=== PATIENT | female | born 1935 | race Caucasian/White ===

== ENCOUNTER 2017-05-29 21:00 | Inpatient (IN) | payer MEDICARE, BC ==
[2017-05-29 22:42] VITALS: BP 139/66
[2017-05-29] MEDS ORDERED: Triamcinolone Acet 0.025% Cream 15 gm TP PRN (22:42)
[2017-05-29] MEDS ORDERED: Magnesium Hydroxide (MOM) 30 mL UDC PO PRN (22:47)
[2017-05-29] MEDS ORDERED: Maalox 30 mL Cup PO PRN (22:47)
[2017-05-30] MEDS: Multivitamin Tab PO SCH (08:32)
[2017-05-30] MEDS ORDERED: Haloperidol Lactate 5 mg/mL 1mL Vial IM ONE (11:00)
--- NOTE | 2017-05-30 11:53 | History and Physical ---
History of Present Illness - HPI Chief Complaint: psychosis HPI: This is a 82 year old female who is admitted to the [facility] unit for psychosis. Vital Signs: Last Vital Signs Temp 98.4 F 05/30/17 06:33 Pulse 84 05/30/17 06:33 Resp 18 05/30/17 06:33 BP 147/65 05/30/17 06:33 Pulse Ox 96 05/30/17 06:33 Past Medical History Other History: dvt Social History Smoke: No Alcohol: None Drugs: None Lives: Jail - Medications Home Medications: Home Medication Medication Instructions Recorded Type Divalproex ER [Depakote ER] 250 mg PO HS 05/29/17 History Ergocalciferol [Vitamin D] 50,000 iu PO QWEEK 05/29/17 History OLANZapine [ZyPREXA] 2.5 mg PO HS 05/29/17 History Rivaroxaban [Xarelto] 20 mg PO DAILY 05/29/17 History Triamcinolone Acet 0.025% Cre 1 appl TP BID PRN 05/29/17 History [Kenalog 0.025% Cre] - Allergies Allergies/Adverse Reactions: Allergies Allergy/AdvReac Type Severity Reaction Status Date / Time morphine Allergy Verified 05/29/17 22:14 Review of Systems - Review of Systems Constitutional: Report: No Significant Eyes: Report: No Significant ENT: Report: No Significant Respiratory: Report: No Significant Cardiovascular: Report: No Significant Gastrointestinal: Report: No Significant Genitourinary: Report: No Significant Musculoskeletal: Report: No Significant Skin: Report: No Significant Neurological: Report: No Significant Physical Exam - Physical Exam HEENT: Report: Ears Nose Throat within normal limits Neck: Report: Within normal limits Cardiovascular Systems: Report: +s1/s2 noted, Regular, Rate and Rhythm Respiratory: Report: Breath Sounds are within normal limits Abdomen: Report: Non-tender to palpation Back: Report: Inspection of back is within normal limits. Extremities: Report: Non-tender to palpation. Skin: Report: Color of skin is within normal limits Neuro/Psych: Report: Mood affect is within normal limits - Assessment Assessment: psychosis - Plan Plan: continue current orders
--- NOTE | 2017-05-31 02:01 | Psychosocial Evaluation ---
DATE OF SERVICE: 05/30/2017 JUSTIFICATION FOR HOSPITALIZATION: Hallucinating, agitated, paranoid, seems to be responding to internal stimuli, refusing treatment. CHIEF COMPLAINT: Somebody told me to stop the meds. HISTORY OF PRESENT ILLNESS: An 82-year-old female, disoriented, does not know why she is here, hallucinating and talking to doctors not in the room, looking at me and stating that the doctors saw she did not take the medications, yelling, screaming, shrieking. The patient stating that she is not bipolar, that somebody told her to stop taking the medications, "It was me. I told myself to stop." The patient is a very poor historian. PAST PSYCHIATRIC HISTORY: Is unclear, but it seems she does have history of psychosis, possibly dementia. FAMILY HISTORY: Noncontributory. SOCIAL HISTORY: The patient was born in [place], states that she lives in [place] with her . No kids. States that at times she drinks alcohol. MEDICATIONS: Reviewed, but she states that she will refuse the medications, specifically the Zyprexa. MEDICAL HISTORY: Please see full H and P. MENTAL STATUS EXAMINATION: Stated age, screaming on exam, disoriented, very poor eye contact, looking away, talking to someone is really not fair, disorganized, disoriented, actively responding to internal stimuli. No overt SI or HI. Insight and judgment severely diminished. PROVISIONAL DIAGNOSES: Psychosis, unspecified; mood, unspecified, rule out dementia, rule out schizophrenia, rule out schizoaffective disorder, rule out bipolar affective disorder, poor medication and treatment compliance. MEDICAL: Please see full H and P. ESTIMATED LENGTH OF STAY: 5-6 days. ASSESSMENT: The patient requiring inpatient hospitalization. Disoriented, psychotic, yelling, screaming. PLAN: We will initiate medication management, encourage medication compliance. CONDITIONS FOR DISCHARGE: Improved mood, improved affect, cessation of any SI or HI, better control of her psychotic symptoms. [facility]# [id number]
[2017-05-31 08:22] LABS: % EOSINOPHILS 3.6 % (0.0-5.0); % LYMPHOCYTES 19.7 % (20.0-50.0); % MONOCYTES 9.1 % (2.0-10.0); % NEUTROPHILS 67.6 % (40.0-80.0); EOSINOPHILE ABSOLUTE 0.3 Th/cmm (0.1-0.4); LYMPHOCYTE ABSOLUTE 1.5 Th/cmm (1.5-3.0); MEAN CELL VOLUME 95.6 fl (81-100); MEAN CORPUSCULAR HEMOGLOBIN 32.8 pg (27.0-31.0); MEAN CORPUSCULAR HGB CONC 34.3 pg (28.0-36.0); MEAN PLATELET VOLUME 8.8 fl; MONOCYTE ABSOLUTE 0.7 Th/cmm (0.3-1.0); NEUTROPHILE ABSOLUTE 5.3 Th/cmm (1.8-8.0); PLATELET COUNT 163 Th/cmm (150-400); RED BLOOD COUNT 3.98 Mil/cmm (3.80-5.20); RED CELL DISTRIBUTION WIDTH 13.6 % (11.5-20.0); WHITE BLOOD COUNT 7.8 Th/cmm (4.8-10.8)
[2017-05-31 08:41] LABS: ANION GAP 10.2 (7.0-16.0); BUN - UREA NITROGEN 26 mg/dL (7-25); CALCIUM SERUM 9.4 mg/dL (8.6-10.3); CHLORIDE 109 mEq/L (98-107); CREATININE - SERUM 0.7 mg/dL (0.6-1.2); GLUCOSE 86 mg/dL (70-105); POTASSIUM SERUM 4.2 mEq/L (3.5-5.1); SODIUM SERUM 139 mEq/L (136-145)
[2017-05-31] MEDS: Multivitamin Tab PO SCH (09:34)
--- NOTE | 2017-05-31 11:39 | General Progress Note ---
Subjective - Review of Systems Events since last encounter: patent still psychotic in no acute distress Objective - Results Result Diagrams: 05/31/17 07:50 05/31/17 07:50 Recent Labs: Laboratory Last Values WBC 7.8 Th/cmm (4.8-10.8) 05/31/17 07:50 RBC 3.98 Mil/cmm (3.80-5.20) 05/31/17 07:50 Hgb 13.0 gm/dL (12-16) 05/31/17 07:50 Hct 38.0 % (41.0-60) L 05/31/17 07:50 MCV 95.6 fl (81-100) 05/31/17 07:50 MCH 32.8 pg (27.0-31.0) H 05/31/17 07:50 MCHC Differential 34.3 pg (28.0-36.0) 05/31/17 07:50 RDW 13.6 % (11.5-20.0) 05/31/17 07:50 Plt Count 163 Th/cmm (150-400) 05/31/17 07:50 MPV 8.8 fl 05/31/17 07:50 Neutrophils % 67.6 % (40.0-80.0) 05/31/17 07:50 Lymphocytes % 19.7 % (20.0-50.0) L 05/31/17 07:50 Monocytes % 9.1 % (2.0-10.0) 05/31/17 07:50 Eosinophils % 3.6 % (0.0-5.0) 05/31/17 07:50 Basophils % 0.0 % (0.0-2.0) 05/31/17 07:50 Sodium 139 mEq/L (136-145) 05/31/17 07:50 Potassium 4.2 mEq/L (3.5-5.1) 05/31/17 07:50 Chloride 109 mEq/L (98-107) H 05/31/17 07:50 Carbon Dioxide 24.0 mEq/L (21.0-31.0) 05/31/17 07:50 Anion Gap 10.2 (7.0-16.0) 05/31/17 07:50 BUN 26 mg/dL (7-25) H 05/31/17 07:50 Creatinine 0.7 mg/dL (0.6-1.2) 05/31/17 07:50 Est GFR ( Amer) TNP 05/31/17 07:50 Est GFR (Non-Af Amer) TNP 05/31/17 07:50 BUN/Creatinine Ratio 37.1 05/31/17 07:50 Glucose 86 mg/dL (70-105) 05/31/17 07:50 Calcium 9.4 mg/dL (8.6-10.3) 05/31/17 07:50 - Physical Exam Vitals and I&O: Vital Signs Temp 98.9 F 05/31/17 07:11 Pulse 69 05/31/17 07:11 Resp 20 05/31/17 07:11 BP 142/76 05/31/17 07:11 Pulse Ox 97 05/31/17 07:11 Intake & Output 05/30/17 05/31/17 05/31/17 18:59 06:59 18:59 Intake Total 250 Balance 250 Intake: Oral 250 Other: # Voids 3 # Bowel Movements 1 Stool Characteristics Soft Active Medications: Current Medications Acetaminophen (Tylenol) 650 mg PO Q4HR PRN PRN Reason: Mild Pain / Temp above 100 Stop: 07/28/17 22:46 Al Hydrox/Mg Hydrox/Simethicone (Maalox) 30 ml PO Q4HR PRN PRN Reason: GI DISTRESS Stop: 07/28/17 22:46 Divalproex Sodium (Depakote Er) 250 mg PO HS DANYELLE PRN Reason: Protocol Stop: 07/29/17 20:59 Last Admin: 05/30/17 21:21 Dose: 250 mg Ergocalciferol (Vitamin D) 50,000 iu PO QWEEK DANYELLE Stop: 07/29/17 08:59 Last Admin: 05/30/17 08:32 Dose: Not Given Lorazepam (Ativan) 0.5 mg PO Q4HR PRN; Protocol PRN Reason: Anxiety Stop: 06/28/17 22:46 Magnesium Hydroxide (Milk Of Magnesia) 30 ml PO HS PRN PRN Reason: Constipation Miscellaneous (Clinical Monitoring) 1 ea MC PRN PRN PRN Reason: XARELTO Stop: 07/29/17 14:09 Multivitamins/Vitamin C (Theragran) 1 tab PO DAILY DANYELLE Stop: 07/29/17 08:59 Last Admin: 05/31/17 09:34 Dose: 1 tab Olanzapine (Zyprexa) 2.5 mg PO HS DANYELLE PRN Reason: Protocol Stop: 07/29/17 20:59 Last Admin: 05/30/17 21:21 Dose: 2.5 mg Rivaroxaban (Xarelto) 20 mg PO DAILY DANYELLE Stop: 07/29/17 08:59 Last Admin: 05/31/17 09:34 Dose: 20 mg Triamcinolone Acetonide (Kenalog 0.025% Cre) 1 appl TP BID PRN PRN Reason: Rash Stop: 07/28/17 22:41 Zolpidem Tartrate (Ambien) 5 mg PO HS PRN PRN Reason: Insomnia Stop: 07/28/17 22:46
--- NOTE | 2017-05-31 23:55 | Progress Notes ---
DATE: 05/31/2017 SUBJECTIVE: The patient in the hospital, hallucinating, agitated, paranoid, refusing treatment. Apparently, she has been home with , but could not be handled at home. The patient not really interactive with me during the [id number] examination, she does not know why she is here or what is going on, remains disoriented impoverished thought process. She is a poor historian; ongoing psychotic symptoms seem to be present. It is unclear if she has an underlying history of mental illness or schizophrenia. ASSESSMENT: The patient remains symptomatic. History of poor medication compliance. The patient did require emergency medications within the past 24 hours due to agitation and escalation of behaviors. PLAN: We will encourage better med compliance. If she continues to refuse treatment, I may need to file a [place] petition. JOB# [id number]
[2017-06-01] MEDS: Multivitamin Tab PO SCH (11:15)
--- NOTE | 2017-06-01 16:21 | General Progress Note ---
Subjective - Review of Systems Events since last encounter: confused in no distress Objective - Results Result Diagrams: 05/31/17 07:50 05/31/17 07:50 Recent Labs: Laboratory Last Values WBC 7.8 Th/cmm (4.8-10.8) 05/31/17 07:50 RBC 3.98 Mil/cmm (3.80-5.20) 05/31/17 07:50 Hgb 13.0 gm/dL (12-16) 05/31/17 07:50 Hct 38.0 % (41.0-60) L 05/31/17 07:50 MCV 95.6 fl (81-100) 05/31/17 07:50 MCH 32.8 pg (27.0-31.0) H 05/31/17 07:50 MCHC Differential 34.3 pg (28.0-36.0) 05/31/17 07:50 RDW 13.6 % (11.5-20.0) 05/31/17 07:50 Plt Count 163 Th/cmm (150-400) 05/31/17 07:50 MPV 8.8 fl 05/31/17 07:50 Neutrophils % 67.6 % (40.0-80.0) 05/31/17 07:50 Lymphocytes % 19.7 % (20.0-50.0) L 05/31/17 07:50 Monocytes % 9.1 % (2.0-10.0) 05/31/17 07:50 Eosinophils % 3.6 % (0.0-5.0) 05/31/17 07:50 Basophils % 0.0 % (0.0-2.0) 05/31/17 07:50 Sodium 139 mEq/L (136-145) 05/31/17 07:50 Potassium 4.2 mEq/L (3.5-5.1) 05/31/17 07:50 Chloride 109 mEq/L (98-107) H 05/31/17 07:50 Carbon Dioxide 24.0 mEq/L (21.0-31.0) 05/31/17 07:50 Anion Gap 10.2 (7.0-16.0) 05/31/17 07:50 BUN 26 mg/dL (7-25) H 05/31/17 07:50 Creatinine 0.7 mg/dL (0.6-1.2) 05/31/17 07:50 Est GFR ( Amer) TNP 05/31/17 07:50 Est GFR (Non-Af Amer) TNP 05/31/17 07:50 BUN/Creatinine Ratio 37.1 05/31/17 07:50 Glucose 86 mg/dL (70-105) 05/31/17 07:50 Calcium 9.4 mg/dL (8.6-10.3) 05/31/17 07:50 - Physical Exam Vitals and I&O: Vital Signs Temp 97.4 F 06/01/17 07:00 Pulse 73 06/01/17 07:00 Resp 18 06/01/17 07:00 BP 106/75 06/01/17 07:00 Pulse Ox 98 06/01/17 07:00 Intake & Output 05/31/17 06/01/17 06/01/17 18:59 06:59 18:59 Intake Total 1000 120 Balance 1000 120 Intake: Oral 1000 120 Other: # Voids 3 3 Stool Characteristics Soft Active Medications: Current Medications Acetaminophen (Tylenol) 650 mg PO Q4HR PRN PRN Reason: Mild Pain / Temp above 100 Stop: 07/28/17 22:46 Al Hydrox/Mg Hydrox/Simethicone (Maalox) 30 ml PO Q4HR PRN PRN Reason: GI DISTRESS Stop: 07/28/17 22:46 Divalproex Sodium (Depakote Er) 250 mg PO HS DANYELLE PRN Reason: Protocol Stop: 07/29/17 20:59 Last Admin: 05/31/17 21:21 Dose: 250 mg Ergocalciferol (Vitamin D) 50,000 iu PO QWEEK DANYELLE Stop: 07/29/17 08:59 Last Admin: 05/30/17 08:32 Dose: Not Given Lorazepam (Ativan) 0.5 mg PO Q4HR PRN; Protocol PRN Reason: Anxiety Stop: 06/28/17 22:46 Last Admin: 06/01/17 02:15 Dose: 0.5 mg Magnesium Hydroxide (Milk Of Magnesia) 30 ml PO HS PRN PRN Reason: Constipation Miscellaneous (Clinical Monitoring) 1 ea MC PRN PRN PRN Reason: XARELTO Stop: 07/29/17 14:09 Multivitamins/Vitamin C (Theragran) 1 tab PO DAILY DANYELLE Stop: 07/29/17 08:59 Last Admin: 06/01/17 11:15 Dose: 1 tab Olanzapine (Zyprexa) 2.5 mg PO HS DANYELLE PRN Reason: Protocol Stop: 07/29/17 20:59 Last Admin: 05/31/17 21:21 Dose: 2.5 mg Rivaroxaban (Xarelto) 20 mg PO DAILY DANYELLE Stop: 07/29/17 08:59 Last Admin: 06/01/17 11:15 Dose: Not Given Triamcinolone Acetonide (Kenalog 0.025% Cre) 1 appl TP BID PRN PRN Reason: Rash Stop: 07/28/17 22:41 Zolpidem Tartrate (Ambien) 5 mg PO HS PRN PRN Reason: Insomnia Stop: 07/28/17 22:46 Nutritional Asmnt/Malnutr-PDOC - Dietary Evaluation Malnutrition Findings (Please click <Entered> for more info): Nutritional Asmnt/Malnutrition Start: 05/30/17 07: 57 Text: Status: Complete Freq: Document 06/01/17 12:38 [email or web address] (Rec: 06/01/17 12:47 [email or web address]) Nutritional Asmnt/Malnutrition Patient General Information Nutritional Screening Moderate Risk Diagnosis psychosis Pertinent Medical Hx/Surgical Hx psychosis, dementia, no other history available Subjective Information pt confused but eating 100% of meals Current Diet Order/ Nutrition Support regular Patient / S.O Not Indicated Pertinent Medications vit d, MOM, MVI, zyprexa, xarelto Pertinent Labs 05/31 BUN: 26 Nutritional Hx/Data Height 1.63 m Height (Calculated Centimeters) 162.6 Current Weight (lbs) 49.895 kg Weight (Calculated Kilograms) 49.9 Weight (Calculated Grams) 17878.2 [place] Body Weight 120 % [place] Body Weight 92 Body Mass Index (BMI) 18.8 Weight Status Approriate GI Symptoms GI Symptoms None Last BM 06/01 Difficult in: None Food Allergies No Skin Integrity/Comment: intact, +2 BLE edema, dry, redness, and flakiness Current %PO Good (75-100%) Estimated Nutritional Goals BEE in Kcals: Using Current wt Calories/Kcals/Kg 30-35 Kcals Calculated 0962-3115 Protein: Using Current wt Protein g/k-1.2 Protein Calculated 50-60 Fluid: ml 6086-6713 (25-30 mL/kg) Nutritional Problem No current Nutrition Prob Problem n/a Etiology n/a Signs/Symptoms: n/a Malnutrition Alert Is there a minimum of two criteria No selected? Query Text:Check all the applicable criteria. A minimum of two criteria are recommended for diagnosis of either severe or non-severe malnutrition. Malnutrition Related to Morbid Obesity Malnutrition related to morbid obesity No Intervention/Recommendation Comments 1. Continue regular diet as ordered Expected Outcomes/Goals Expected Outcomes/Goals po intake >50% monitor wt, labs, skin, PO intake
--- NOTE | 2017-06-01 21:17 | Progress Notes ---
DATE: 06/01/2017 SUBJECTIVE: The patient is currently in the hospital, hallucinating, refusing treatment, stating she does not have bipolar, stating some other doctor told her she does not need to take her medications. The patient was quite unruly a couple days ago, but she has been calmer. She remains highly isolative, withdrawn, ruminative, fixated on the idea that she does not take any medications. I do have her prescribed Zyprexa. ASSESSMENT: The patient remains symptomatic, isolative, reclusive, and concerns for underlying psychosis. PLAN: We will attempt to reach out to family. Given ongoing symptoms, there are overt safety concerns and I am concerned about compliance issues. [facility]# [id number]
[2017-06-02] MEDS: Multivitamin Tab PO SCH (08:36)
--- NOTE | 2017-06-02 12:48 | Internal Medicine Prog Note ---
Internal Medicine Subjective - Subjective Service Date: 06/02/17 Patient seen and examined:: with staff Patient is:: awake Per staff patient has:: no adverse event Internal Medicine Objective - Results Result Diagrams: 05/31/17 07:50 05/31/17 07:50 Recent Labs: Laboratory Last Values WBC 7.8 Th/cmm (4.8-10.8) 05/31/17 07:50 RBC 3.98 Mil/cmm (3.80-5.20) 05/31/17 07:50 Hgb 13.0 gm/dL (12-16) 05/31/17 07:50 Hct 38.0 % (41.0-60) L 05/31/17 07:50 MCV 95.6 fl (81-100) 05/31/17 07:50 MCH 32.8 pg (27.0-31.0) H 05/31/17 07:50 MCHC Differential 34.3 pg (28.0-36.0) 05/31/17 07:50 RDW 13.6 % (11.5-20.0) 05/31/17 07:50 Plt Count 163 Th/cmm (150-400) 05/31/17 07:50 MPV 8.8 fl 05/31/17 07:50 Neutrophils % 67.6 % (40.0-80.0) 05/31/17 07:50 Lymphocytes % 19.7 % (20.0-50.0) L 05/31/17 07:50 Monocytes % 9.1 % (2.0-10.0) 05/31/17 07:50 Eosinophils % 3.6 % (0.0-5.0) 05/31/17 07:50 Basophils % 0.0 % (0.0-2.0) 05/31/17 07:50 Sodium 139 mEq/L (136-145) 05/31/17 07:50 Potassium 4.2 mEq/L (3.5-5.1) 05/31/17 07:50 Chloride 109 mEq/L (98-107) H 05/31/17 07:50 Carbon Dioxide 24.0 mEq/L (21.0-31.0) 05/31/17 07:50 Anion Gap 10.2 (7.0-16.0) 05/31/17 07:50 BUN 26 mg/dL (7-25) H 05/31/17 07:50 Creatinine 0.7 mg/dL (0.6-1.2) 05/31/17 07:50 Est GFR ( Amer) TNP 05/31/17 07:50 Est GFR (Non-Af Amer) TNP 05/31/17 07:50 BUN/Creatinine Ratio 37.1 05/31/17 07:50 Glucose 86 mg/dL (70-105) 05/31/17 07:50 Calcium 9.4 mg/dL (8.6-10.3) 05/31/17 07:50 - Physical Exam Vitals and I&O: Vital Signs Temp 98 F 06/02/17 06:26 Pulse 71 06/02/17 11:28 Resp 20 06/02/17 11:28 BP 130/74 06/02/17 06:26 Pulse Ox 98 06/02/17 06:26 Intake & Output 06/01/17 06/02/17 06/02/17 18:59 06:59 18:59 Intake Total 120 240 Output Total 1 Balance 119 240 Intake: Oral 120 240 Output: Stool 1 Other: # Voids 3 3 Stool Characteristics Soft Formed Active Medications: Current Medications Acetaminophen (Tylenol) 650 mg PO Q4HR PRN PRN Reason: Mild Pain / Temp above 100 Stop: 07/28/17 22:46 Al Hydrox/Mg Hydrox/Simethicone (Maalox) 30 ml PO Q4HR PRN PRN Reason: GI DISTRESS Stop: 07/28/17 22:46 Divalproex Sodium (Depakote Er) 250 mg PO HS DANYELLE PRN Reason: Protocol Stop: 07/29/17 20:59 Last Admin: 06/01/17 21:40 Dose: 250 mg Ergocalciferol (Vitamin D) 50,000 iu PO QWEEK DANYELLE Stop: 07/29/17 08:59 Last Admin: 05/30/17 08:32 Dose: Not Given Lorazepam (Ativan) 0.5 mg PO Q4HR PRN; Protocol PRN Reason: Anxiety Stop: 06/28/17 22:46 Last Admin: 06/01/17 02:15 Dose: 0.5 mg Magnesium Hydroxide (Milk Of Magnesia) 30 ml PO HS PRN PRN Reason: Constipation Miscellaneous (Clinical Monitoring) 1 ea PRN PRN PRN Reason: XARELTO Stop: 07/29/17 14:09 Multivitamins/Vitamin C (Theragran) 1 tab PO DAILY DANYELLE Stop: 07/29/17 08:59 Last Admin: 06/02/17 08:36 Dose: 1 tab Olanzapine (Zyprexa) 2.5 mg PO HS DANYELLE PRN Reason: Protocol Stop: 07/29/17 20:59 Last Admin: 06/01/17 21:40 Dose: 2.5 mg Rivaroxaban (Xarelto) 20 mg PO DAILY DANYELLE Stop: 07/29/17 08:59 Last Admin: 06/02/17 08:36 Dose: 20 mg Triamcinolone Acetonide (Kenalog 0.025% Cre) 1 appl TP BID PRN PRN Reason: Rash Stop: 07/28/17 22:41 Zolpidem Tartrate (Ambien) 5 mg PO HS PRN PRN Reason: Insomnia Stop: 07/28/17 22:46 General: alert HEENT: NC/AT, PERRLA Neck: Supple Lungs: CTAB Internal Medicine Assmt/Plan - Assessment Assessment: psychosis - Plan Plan: continue current orders Nutritional Asmnt/Malnutr-PDOC - Dietary Evaluation Malnutrition Findings (Please click <Entered> for more info): Nutritional Asmnt/Malnutrition Start: 05/30/17 07: 57 Text: Status: Complete Freq: Document 06/01/17 12:38 [email or web address] (Rec: 06/01/17 12:47 [email or web address]) Nutritional Asmnt/Malnutrition Patient General Information Nutritional Screening Moderate Risk Diagnosis psychosis Pertinent Medical Hx/Surgical Hx psychosis, dementia, no other history available Subjective Information pt confused but eating 100% of meals Current Diet Order/ Nutrition Support regular Patient / S.O Not Indicated Pertinent Medications vit d, MOM, MVI, zyprexa, xarelto Pertinent Labs 05/31 BUN: 26 Nutritional Hx/Data Height 5 ft 4 in Height (Calculated Centimeters) 162.6 Current Weight (lbs) 110 lb Weight (Calculated Kilograms) 49.9 Weight (Calculated Grams) 89140.2 [place] Body Weight 120 % [place] Body Weight 92 Body Mass Index (BMI) 18.8 Weight Status Approriate GI Symptoms GI Symptoms None Last BM 06/01 Difficult in: None Food Allergies No Skin Integrity/Comment: intact, +2 BLE edema, dry, redness, and flakiness Current %PO Good (75-100%) Estimated Nutritional Goals BEE in Kcals: Using Current wt Calories/Kcals/Kg 30-35 Kcals Calculated 3480-7687 Protein: Using Current wt Protein g/k-1.2 Protein Calculated 50-60 Fluid: ml 8421-4221 (25-30 mL/kg) Nutritional Problem No current Nutrition Prob Problem n/a Etiology n/a Signs/Symptoms: n/a Malnutrition Alert Is there a minimum of two criteria No selected? Query Text:Check all the applicable criteria. A minimum of two criteria are recommended for diagnosis of either severe or non-severe malnutrition. Malnutrition Related to Morbid Obesity Malnutrition related to morbid obesity No Intervention/Recommendation Comments 1. Continue regular diet as ordered Expected Outcomes/Goals Expected Outcomes/Goals po intake >50% monitor wt, labs, skin, PO intake
--- NOTE | 2017-06-03 01:20 | Progress Notes ---
DATE: 06/02/2017 SUBJECTIVE: The patient is currently in the hospital, hallucinating, had been refusing treatment, apparently unruly and quite aggressive. Upon admission, she seems calmer, however, remains in a Fiona chair, still impulsive, unpredictable, still claiming somebody told her to stop the medicine, but this morning she is somewhat agreeable to it. She also verbalizes she wants to leave. ASSESSMENT: The patient remains symptomatic, isolative, occlusive, but she seems somewhat calmer. PLAN: We will continue to monitor given ongoing symptoms. She is not safe for discharge. The patient is verbalizing. She will take Zyprexa. JOB# [id number]
[2017-06-03] MEDS: Multivitamin Tab PO SCH (08:49)
[2017-06-03] MEDS ORDERED: Magnesium Hydroxide (MOM) 30 mL UDC PO PRN (22:47)
--- NOTE | 2017-06-04 01:49 | Progress Notes ---
DATE: 06/03/2017 SUBJECTIVE: The patient was seen in her room, lying in the bed. The patient appears to be withdrawn and agitated. Otherwise, the patient appears to be in no acute distress. OBJECTIVE: VITAL SIGNS: Temperature 97.8, heart rate 74, blood pressure 131/61, respiration 18, 96% on room air. HEENT: Head is atraumatic and normocephalic. Eyes: Bilateral conjunctivae are clear. Bilateral pupils are equally round and reactive. NECK: Supple. No JVD. CARDIOVASCULAR: S1 and S2, without murmur. PULMONARY: Clear to auscultation. GASTROINTESTINAL: Soft and nontender without guarding. Positive bowel sounds. MUSCULOSKELETAL: No clubbing. No cyanosis noted. ASSESSMENT: 1. Psychosis. 2. Vitamin D deficiency. 3. Insomnia. 4. Osteoarthritis. PLAN: We will keep the patient inpatient psychiatric unit. We will follow up with psychiatrist to monitor the patient's condition and behavior. Treatment plans were discussed with the patient's nurse. Treatment plans were discussed with Dr. Lindsey. JOB# [id number]
--- NOTE | 2017-06-04 08:39 | Progress Notes ---
DATE: SUBJECTIVE: The patient was seen, chart reviewed, and discussed with staff. The patient continues to be actively psychotic, hallucinating, very paranoid and often quite aggressive. She has, however, been compliant with her medications, is generally redirectable and continues to be very fixated on being discharged. PLAN: The patient continues to be unpredictable and aggressive, so that she will require inpatient care center treatment. We will monitor patient on a daily basis for response and titrate meds as needed. JOB# [id number]
[2017-06-04] MEDS: Multivitamin Tab PO SCH (09:59)
--- NOTE | 2017-06-04 13:39 | Internal Medicine Prog Note ---
Internal Medicine Subjective - Subjective Service Date: 06/04/17 Patient is:: awake Per staff patient has:: no adverse event Internal Medicine Objective - Results Result Diagrams: 05/31/17 07:50 05/31/17 07:50 Recent Labs: Laboratory Last Values WBC 7.8 Th/cmm (4.8-10.8) 05/31/17 07:50 RBC 3.98 Mil/cmm (3.80-5.20) 05/31/17 07:50 Hgb 13.0 gm/dL (12-16) 05/31/17 07:50 Hct 38.0 % (41.0-60) L 05/31/17 07:50 MCV 95.6 fl (81-100) 05/31/17 07:50 MCH 32.8 pg (27.0-31.0) H 05/31/17 07:50 MCHC Differential 34.3 pg (28.0-36.0) 05/31/17 07:50 RDW 13.6 % (11.5-20.0) 05/31/17 07:50 Plt Count 163 Th/cmm (150-400) 05/31/17 07:50 MPV 8.8 fl 05/31/17 07:50 Neutrophils % 67.6 % (40.0-80.0) 05/31/17 07:50 Lymphocytes % 19.7 % (20.0-50.0) L 05/31/17 07:50 Monocytes % 9.1 % (2.0-10.0) 05/31/17 07:50 Eosinophils % 3.6 % (0.0-5.0) 05/31/17 07:50 Basophils % 0.0 % (0.0-2.0) 05/31/17 07:50 Sodium 139 mEq/L (136-145) 05/31/17 07:50 Potassium 4.2 mEq/L (3.5-5.1) 05/31/17 07:50 Chloride 109 mEq/L (98-107) H 05/31/17 07:50 Carbon Dioxide 24.0 mEq/L (21.0-31.0) 05/31/17 07:50 Anion Gap 10.2 (7.0-16.0) 05/31/17 07:50 BUN 26 mg/dL (7-25) H 05/31/17 07:50 Creatinine 0.7 mg/dL (0.6-1.2) 05/31/17 07:50 Est GFR ( Amer) TNP 05/31/17 07:50 Est GFR (Non-Af Amer) TNP 05/31/17 07:50 BUN/Creatinine Ratio 37.1 05/31/17 07:50 Glucose 86 mg/dL (70-105) 05/31/17 07:50 Calcium 9.4 mg/dL (8.6-10.3) 05/31/17 07:50 - Physical Exam Vitals and I&O: Vital Signs Temp 98.2 F 06/03/17 20:48 Pulse 77 06/03/17 20:48 Resp 19 06/03/17 20:48 BP 124/66 06/03/17 20:48 Pulse Ox 97 06/03/17 20:48 Intake & Output 06/03/17 06/04/17 06/04/17 18:59 06:59 18:59 Intake Total 1200 120 Balance 1200 120 Intake: Oral 1200 120 Other: # Voids 3 1 # Bowel Movements 1 Stool Characteristics Soft Formed Active Medications: Current Medications Acetaminophen (Tylenol) 650 mg PO Q4HR PRN PRN Reason: Mild Pain / Temp above 100 Stop: 07/28/17 22:46 Al Hydrox/Mg Hydrox/Simethicone (Maalox) 30 ml PO Q4HR PRN PRN Reason: GI DISTRESS Stop: 07/28/17 22:46 Divalproex Sodium (Depakote Er) 250 mg PO DANYELLE PRN Reason: Protocol Stop: 07/29/17 20:59 Last Admin: 06/03/17 21:30 Dose: 250 mg Ergocalciferol (Vitamin D) 50,000 iu PO QWEEK DANYELLE Stop: 07/29/17 08:59 Last Admin: 05/30/17 08:32 Dose: Not Given Lorazepam (Ativan) 0.5 mg PO Q4HR PRN; Protocol PRN Reason: Anxiety Stop: 06/28/17 22:46 Last Admin: 06/04/17 10:07 Dose: 0.5 mg Magnesium Hydroxide (Milk Of Magnesia) 30 ml PO DAILY PRN PRN Reason: Constipation Miscellaneous (Clinical Monitoring) 1 ea PRN PRN PRN Reason: XARELTO Stop: 07/29/17 14:09 Multivitamins/Vitamin C (Theragran) 1 tab PO DAILY DANYELLE Stop: 07/29/17 08:59 Last Admin: 06/04/17 09:59 Dose: 1 tab Olanzapine (Zyprexa) 2.5 mg PO HS DANYELLE PRN Reason: Protocol Stop: 07/29/17 20:59 Last Admin: 06/03/17 21:29 Dose: 2.5 mg Rivaroxaban (Xarelto) 20 mg PO DAILY DANYELLE Stop: 07/29/17 08:59 Last Admin: 06/04/17 09:59 Dose: 20 mg Triamcinolone Acetonide (Kenalog 0.025% Cre) 1 appl TP BID PRN PRN Reason: Rash Stop: 07/28/17 22:41 Last Admin: 06/03/17 17:28 Dose: 1 appl Zolpidem Tartrate (Ambien) 5 mg PO HS PRN PRN Reason: Insomnia Stop: 07/28/17 22:46 General: alert HEENT: NC/AT, PERRLA Neck: Supple Lungs: CTAB Internal Medicine Assmt/Plan - Assessment Assessment: psychosis - Plan Plan: continue current orders Nutritional Asmnt/Malnutr-PDOC - Dietary Evaluation Malnutrition Findings (Please click <Entered> for more info): Nutritional Asmnt/Malnutrition Start: 05/30/17 07: 57 Text: Status: Complete Freq: Document 06/01/17 12:38 [email or web address] (Rec: 06/01/17 12:47 [email or web address]) Nutritional Asmnt/Malnutrition Patient General Information Nutritional Screening Moderate Risk Diagnosis psychosis Pertinent Medical Hx/Surgical Hx psychosis, dementia, no other history available Subjective Information pt confused but eating 100% of meals Current Diet Order/ Nutrition Support regular Patient / S.O Not Indicated Pertinent Medications vit d, MOM, MVI, zyprexa, xarelto Pertinent Labs 05/31 BUN: 26 Nutritional Hx/Data Height 5 ft 4 in Height (Calculated Centimeters) 162.6 Current Weight (lbs) 110 lb Weight (Calculated Kilograms) 49.9 Weight (Calculated Grams) 47042.2 [place] Body Weight 120 % [place] Body Weight 92 Body Mass Index (BMI) 18.8 Weight Status Approriate GI Symptoms GI Symptoms None Last BM 06/01 Difficult in: None Food Allergies No Skin Integrity/Comment: intact, +2 BLE edema, dry, redness, and flakiness Current %PO Good (75-100%) Estimated Nutritional Goals BEE in Kcals: Using Current wt Calories/Kcals/Kg 30-35 Kcals Calculated 7208-3949 Protein: Using Current wt Protein g/k-1.2 Protein Calculated 50-60 Fluid: ml 3590-3773 (25-30 mL/kg) Nutritional Problem No current Nutrition Prob Problem n/a Etiology n/a Signs/Symptoms: n/a Malnutrition Alert Is there a minimum of two criteria No selected? Query Text:Check all the applicable criteria. A minimum of two criteria are recommended for diagnosis of either severe or non-severe malnutrition. Malnutrition Related to Morbid Obesity Malnutrition related to morbid obesity No Intervention/Recommendation Comments 1. Continue regular diet as ordered Expected Outcomes/Goals Expected Outcomes/Goals po intake >50% monitor wt, labs, skin, PO intake
--- NOTE | 2017-06-04 22:19 | Progress Notes ---
DATE: SUBJECTIVE: The patient was seen, chart reviewed, and discussed with staff. The patient continues to be actively psychotic, responding to internal stimuli. Often very aggressive requiring redirection. She has been compliant with her medications. PLAN: The patient continues to be unpredictable with a history of ____ that she will require inpatient care for at least stabilization and treatment. We will monitor patient on a daily basis for response to medications and titrate as needed. [facility]# [id number]
--- NOTE | 2017-06-05 09:18 | General Progress Note ---
Subjective - Review of Systems Events since last encounter: awake in no acute distress Objective - Results Result Diagrams: 05/31/17 07:50 05/31/17 07:50 Recent Labs: Laboratory Last Values WBC 7.8 Th/cmm (4.8-10.8) 05/31/17 07:50 RBC 3.98 Mil/cmm (3.80-5.20) 05/31/17 07:50 Hgb 13.0 gm/dL (12-16) 05/31/17 07:50 Hct 38.0 % (41.0-60) L 05/31/17 07:50 MCV 95.6 fl (81-100) 05/31/17 07:50 MCH 32.8 pg (27.0-31.0) H 05/31/17 07:50 MCHC Differential 34.3 pg (28.0-36.0) 05/31/17 07:50 RDW 13.6 % (11.5-20.0) 05/31/17 07:50 Plt Count 163 Th/cmm (150-400) 05/31/17 07:50 MPV 8.8 fl 05/31/17 07:50 Neutrophils % 67.6 % (40.0-80.0) 05/31/17 07:50 Lymphocytes % 19.7 % (20.0-50.0) L 05/31/17 07:50 Monocytes % 9.1 % (2.0-10.0) 05/31/17 07:50 Eosinophils % 3.6 % (0.0-5.0) 05/31/17 07:50 Basophils % 0.0 % (0.0-2.0) 05/31/17 07:50 Sodium 139 mEq/L (136-145) 05/31/17 07:50 Potassium 4.2 mEq/L (3.5-5.1) 05/31/17 07:50 Chloride 109 mEq/L (98-107) H 05/31/17 07:50 Carbon Dioxide 24.0 mEq/L (21.0-31.0) 05/31/17 07:50 Anion Gap 10.2 (7.0-16.0) 05/31/17 07:50 BUN 26 mg/dL (7-25) H 05/31/17 07:50 Creatinine 0.7 mg/dL (0.6-1.2) 05/31/17 07:50 Est GFR ( Amer) TNP 05/31/17 07:50 Est GFR (Non-Af Amer) TNP 05/31/17 07:50 BUN/Creatinine Ratio 37.1 05/31/17 07:50 Glucose 86 mg/dL (70-105) 05/31/17 07:50 Calcium 9.4 mg/dL (8.6-10.3) 05/31/17 07:50 - Physical Exam Vitals and I&O: Vital Signs Temp 97.7 F 06/04/17 15:22 Pulse 85 06/04/17 15:22 Resp 20 06/04/17 15:22 BP 146/58 06/04/17 15:22 Pulse Ox 95 06/04/17 15:22 Intake & Output 06/04/17 06/05/17 06/05/17 18:59 06:59 18:59 Intake Total 600 Balance 600 Intake: Oral 600 Other: # Voids 3 # Bowel Movements 1 Stool Characteristics Soft Formed Active Medications: Current Medications Acetaminophen (Tylenol) 650 mg PO Q4HR PRN PRN Reason: Mild Pain / Temp above 100 Stop: 07/28/17 22:46 Al Hydrox/Mg Hydrox/Simethicone (Maalox) 30 ml PO Q4HR PRN PRN Reason: GI DISTRESS Stop: 07/28/17 22:46 Divalproex Sodium (Depakote Er) 250 mg PO HS DANYELLE PRN Reason: Protocol Stop: 07/29/17 20:59 Last Admin: 06/04/17 21:18 Dose: Not Given Ergocalciferol (Vitamin D) 50,000 iu PO QWEEK [facility] Stop: 07/29/17 08:59 Last Admin: 05/30/17 08:32 Dose: Not Given Lorazepam (Ativan) 0.5 mg PO Q4HR PRN; Protocol PRN Reason: Anxiety Stop: 06/28/17 22:46 Last Admin: 06/04/17 15:57 Dose: 0.5 mg Magnesium Hydroxide (Milk Of Magnesia) 30 ml PO DAILY PRN PRN Reason: Constipation Miscellaneous (Clinical Monitoring) 1 ea PRN PRN PRN Reason: XARELTO Stop: 07/29/17 14:09 Multivitamins/Vitamin C (Theragran) 1 tab PO DAILY DANYELLE Stop: 07/29/17 08:59 Last Admin: 06/04/17 09:59 Dose: 1 tab Olanzapine (Zyprexa) 2.5 mg PO HS DANYELLE PRN Reason: Protocol Stop: 07/29/17 20:59 Last Admin: 06/04/17 21:18 Dose: Not Given Rivaroxaban (Xarelto) 20 mg PO DAILY DANEYLLE Stop: 07/29/17 08:59 Last Admin: 06/04/17 09:59 Dose: 20 mg Triamcinolone Acetonide (Kenalog 0.025% Cre) 1 appl TP BID PRN PRN Reason: Rash Stop: 07/28/17 22:41 Last Admin: 06/03/17 17:28 Dose: 1 appl Zolpidem Tartrate (Ambien) 5 mg PO HS PRN PRN Reason: Insomnia Stop: 07/28/17 22:46 Nutritional Asmnt/Malnutr-PDOC - Dietary Evaluation Malnutrition Findings (Please click <Entered> for more info): Nutritional Asmnt/Malnutrition Start: 05/30/17 07: 57 Text: Status: Complete Freq: Document 06/01/17 12:38 [email or web address] (Rec: 06/01/17 12:47 [email or web address]) Nutritional Asmnt/Malnutrition Patient General Information Nutritional Screening Moderate Risk Diagnosis psychosis Pertinent Medical Hx/Surgical Hx psychosis, dementia, no other history available Subjective Information pt confused but eating 100% of meals Current Diet Order/ Nutrition Support regular Patient / S.O Not Indicated Pertinent Medications vit d, MOM, MVI, zyprexa, xarelto Pertinent Labs 05/31 BUN: 26 Nutritional Hx/Data Height 1.63 m Height (Calculated Centimeters) 162.6 Current Weight (lbs) 49.895 kg Weight (Calculated Kilograms) 49.9 Weight (Calculated Grams) 59534.2 [place] Body Weight 120 % [place] Body Weight 92 Body Mass Index (BMI) 18.8 Weight Status Approriate GI Symptoms GI Symptoms None Last BM 06/01 Difficult in: None Food Allergies No Skin Integrity/Comment: intact, +2 BLE edema, dry, redness, and flakiness Current %PO Good (75-100%) Estimated Nutritional Goals BEE in Kcals: Using Current wt Calories/Kcals/Kg 30-35 Kcals Calculated 3450-1324 Protein: Using Current wt Protein g/k-1.2 Protein Calculated 50-60 Fluid: ml 0650-2138 (25-30 mL/kg) Nutritional Problem No current Nutrition Prob Problem n/a Etiology n/a Signs/Symptoms: n/a Malnutrition Alert Is there a minimum of two criteria No selected? Query Text:Check all the applicable criteria. A minimum of two criteria are recommended for diagnosis of either severe or non-severe malnutrition. Malnutrition Related to Morbid Obesity Malnutrition related to morbid obesity No Intervention/Recommendation Comments 1. Continue regular diet as ordered Expected Outcomes/Goals Expected Outcomes/Goals po intake >50% monitor wt, labs, skin, PO intake
[2017-06-05] MEDS: Multivitamin Tab PO SCH (10:16)
--- NOTE | 2017-06-06 04:05 | Progress Notes ---
DATE: 06/05/2017 SUBJECTIVE: The patient in the hospital apparently with bipolar, refusing medications, does not want to take medications. She remains fairly calm, but refuses care. The patient is refusing to speak with me at this time, she told me last week she will take medications, but it has only been intermittently consenting to medications. Remains occlusive, isolative. ASSESSMENT: The patient remains symptomatic, refusing care. Concerns for safety, concerns for ongoing psychotic symptoms. PLAN: We will try to reach out to family today. Given her ongoing symptoms, she is not safe for discharge. [facility]# [id number]
[2017-06-06] MEDS: Multivitamin Tab PO SCH (09:06)
--- NOTE | 2017-06-06 15:20 | General Progress Note ---
Subjective - Review of Systems Events since last encounter: still psychotic in no acute distress Objective - Results Result Diagrams: 05/31/17 07:50 05/31/17 07:50 Recent Labs: Laboratory Last Values WBC 7.8 Th/cmm (4.8-10.8) 05/31/17 07:50 RBC 3.98 Mil/cmm (3.80-5.20) 05/31/17 07:50 Hgb 13.0 gm/dL (12-16) 05/31/17 07:50 Hct 38.0 % (41.0-60) L 05/31/17 07:50 MCV 95.6 fl (81-100) 05/31/17 07:50 MCH 32.8 pg (27.0-31.0) H 05/31/17 07:50 MCHC Differential 34.3 pg (28.0-36.0) 05/31/17 07:50 RDW 13.6 % (11.5-20.0) 05/31/17 07:50 Plt Count 163 Th/cmm (150-400) 05/31/17 07:50 MPV 8.8 fl 05/31/17 07:50 Neutrophils % 67.6 % (40.0-80.0) 05/31/17 07:50 Lymphocytes % 19.7 % (20.0-50.0) L 05/31/17 07:50 Monocytes % 9.1 % (2.0-10.0) 05/31/17 07:50 Eosinophils % 3.6 % (0.0-5.0) 05/31/17 07:50 Basophils % 0.0 % (0.0-2.0) 05/31/17 07:50 Sodium 139 mEq/L (136-145) 05/31/17 07:50 Potassium 4.2 mEq/L (3.5-5.1) 05/31/17 07:50 Chloride 109 mEq/L (98-107) H 05/31/17 07:50 Carbon Dioxide 24.0 mEq/L (21.0-31.0) 05/31/17 07:50 Anion Gap 10.2 (7.0-16.0) 05/31/17 07:50 BUN 26 mg/dL (7-25) H 05/31/17 07:50 Creatinine 0.7 mg/dL (0.6-1.2) 05/31/17 07:50 Est GFR ( Amer) TNP 05/31/17 07:50 Est GFR (Non-Af Amer) TNP 05/31/17 07:50 BUN/Creatinine Ratio 37.1 05/31/17 07:50 Glucose 86 mg/dL (70-105) 05/31/17 07:50 Calcium 9.4 mg/dL (8.6-10.3) 05/31/17 07:50 - Physical Exam Vitals and I&O: Vital Signs Temp 98.2 F 06/05/17 14:00 Pulse 76 06/05/17 14:00 Resp 20 06/05/17 14:00 BP 124/52 06/05/17 14:00 Pulse Ox 95 06/05/17 14:00 Intake & Output 06/05/17 06/06/17 06/06/17 18:59 06:59 18:59 Intake Total 800 Balance 800 Intake: Oral 800 Other: # Voids 3 # Bowel Movements 0 Stool Characteristics Soft Formed Active Medications: Current Medications Acetaminophen (Tylenol) 650 mg PO Q4HR PRN PRN Reason: Mild Pain / Temp above 100 Stop: 07/28/17 22:46 Al Hydrox/Mg Hydrox/Simethicone (Maalox) 30 ml PO Q4HR PRN PRN Reason: GI DISTRESS Stop: 07/28/17 22:46 Divalproex Sodium (Depakote Er) 250 mg PO HS DANYELLE PRN Reason: Protocol Stop: 07/29/17 20:59 Last Admin: 06/05/17 21:21 Dose: Not Given Ergocalciferol (Vitamin D) 50,000 iu PO QTUE DANYELLE Stop: 08/05/17 08:59 Last Admin: 06/06/17 09:06 Dose: 50,000 iu Lorazepam (Ativan) 0.5 mg PO Q4HR PRN; Protocol PRN Reason: Anxiety Stop: 06/28/17 22:46 Last Admin: 06/04/17 15:57 Dose: 0.5 mg Magnesium Hydroxide (Milk Of Magnesia) 30 ml PO DAILY PRN PRN Reason: Constipation Miscellaneous (Clinical Monitoring) 1 ea MC PRN PRN PRN Reason: XARELTO Stop: 07/29/17 14:09 Multivitamins/Vitamin C (Theragran) 1 tab PO DAILY DANYELLE Stop: 07/29/17 08:59 Last Admin: 06/06/17 09:06 Dose: 1 tab Olanzapine (Zyprexa) 2.5 mg PO HS DANYELLE PRN Reason: Protocol Stop: 07/29/17 20:59 Last Admin: 06/05/17 21:21 Dose: Not Given Rivaroxaban (Xarelto) 20 mg PO DAILY DANYELLE Stop: 07/29/17 08:59 Last Admin: 06/06/17 09:06 Dose: 20 mg Triamcinolone Acetonide (Kenalog 0.025% Cre) 1 appl TP BID PRN PRN Reason: Rash Stop: 07/28/17 22:41 Last Admin: 06/03/17 17:28 Dose: 1 appl Zolpidem Tartrate (Ambien) 5 mg PO HS PRN PRN Reason: Insomnia Stop: 07/28/17 22:46 Nutritional Asmnt/Malnutr-PDOC - Dietary Evaluation Malnutrition Findings (Please click <Entered> for more info): Nutritional Asmnt/Malnutrition Start: 05/30/17 07: 57 Text: Status: Complete Freq: Document 06/01/17 12:38 [email or web address] (Rec: 06/01/17 12:47 [email or web address]) Nutritional Asmnt/Malnutrition Patient General Information Nutritional Screening Moderate Risk Diagnosis psychosis Pertinent Medical Hx/Surgical Hx psychosis, dementia, no other history available Subjective Information pt confused but eating 100% of meals Current Diet Order/ Nutrition Support regular Patient / S.O Not Indicated Pertinent Medications vit d, MOM, MVI, zyprexa, xarelto Pertinent Labs 05/31 BUN: 26 Nutritional Hx/Data Height 1.63 m Height (Calculated Centimeters) 162.6 Current Weight (lbs) 49.895 kg Weight (Calculated Kilograms) 49.9 Weight (Calculated Grams) 74409.2 [place] Body Weight 120 % [place] Body Weight 92 Body Mass Index (BMI) 18.8 Weight Status Approriate GI Symptoms GI Symptoms None Last BM 06/01 Difficult in: None Food Allergies No Skin Integrity/Comment: intact, +2 BLE edema, dry, redness, and flakiness Current %PO Good (75-100%) Estimated Nutritional Goals BEE in Kcals: Using Current wt Calories/Kcals/Kg 30-35 Kcals Calculated 1695-8900 Protein: Using Current wt Protein g/k-1.2 Protein Calculated 50-60 Fluid: ml 5094-8832 (25-30 mL/kg) Nutritional Problem No current Nutrition Prob Problem n/a Etiology n/a Signs/Symptoms: n/a Malnutrition Alert Is there a minimum of two criteria No selected? Query Text:Check all the applicable criteria. A minimum of two criteria are recommended for diagnosis of either severe or non-severe malnutrition. Malnutrition Related to Morbid Obesity Malnutrition related to morbid obesity No Intervention/Recommendation Comments 1. Continue regular diet as ordered Expected Outcomes/Goals Expected Outcomes/Goals po intake >50% monitor wt, labs, skin, PO intake
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
[2017-06-07] MEDS: Multivitamin Tab PO SCH (08:39)
--- NOTE | 2017-06-07 12:58 | Progress Notes ---
DATE: 06/07/2017 The patient is currently in the hospital, delusional, stopped her meds, unruly at home. at bedside. The patient on a positive note has been taking her medications. She took her medications today and last night. She seems calmer, more cooperative. Medications were noted. The patient is sleeping well, eating well, calm on exam. ASSESSMENT: The patient seems to be improving, better med compliance, better insight, psychosis dissipating. PLAN: I will continue to monitor and follow up. Improvement noted. [facility]# [id number]
--- NOTE | 2017-06-07 13:54 | Internal Medicine Prog Note ---
Internal Medicine Subjective - Subjective Service Date: 06/07/17 Patient is:: awake Per staff patient has:: no adverse event Internal Medicine Objective - Results Result Diagrams: 05/31/17 07:50 05/31/17 07:50 Recent Labs: Laboratory Last Values WBC 7.8 Th/cmm (4.8-10.8) 05/31/17 07:50 RBC 3.98 Mil/cmm (3.80-5.20) 05/31/17 07:50 Hgb 13.0 gm/dL (12-16) 05/31/17 07:50 Hct 38.0 % (41.0-60) L 05/31/17 07:50 MCV 95.6 fl (81-100) 05/31/17 07:50 MCH 32.8 pg (27.0-31.0) H 05/31/17 07:50 MCHC Differential 34.3 pg (28.0-36.0) 05/31/17 07:50 RDW 13.6 % (11.5-20.0) 05/31/17 07:50 Plt Count 163 Th/cmm (150-400) 05/31/17 07:50 MPV 8.8 fl 05/31/17 07:50 Neutrophils % 67.6 % (40.0-80.0) 05/31/17 07:50 Lymphocytes % 19.7 % (20.0-50.0) L 05/31/17 07:50 Monocytes % 9.1 % (2.0-10.0) 05/31/17 07:50 Eosinophils % 3.6 % (0.0-5.0) 05/31/17 07:50 Basophils % 0.0 % (0.0-2.0) 05/31/17 07:50 Sodium 139 mEq/L (136-145) 05/31/17 07:50 Potassium 4.2 mEq/L (3.5-5.1) 05/31/17 07:50 Chloride 109 mEq/L (98-107) H 05/31/17 07:50 Carbon Dioxide 24.0 mEq/L (21.0-31.0) 05/31/17 07:50 Anion Gap 10.2 (7.0-16.0) 05/31/17 07:50 BUN 26 mg/dL (7-25) H 05/31/17 07:50 Creatinine 0.7 mg/dL (0.6-1.2) 05/31/17 07:50 Est GFR ( Amer) TNP 05/31/17 07:50 Est GFR (Non-Af Amer) TNP 05/31/17 07:50 BUN/Creatinine Ratio 37.1 05/31/17 07:50 Glucose 86 mg/dL (70-105) 05/31/17 07:50 Calcium 9.4 mg/dL (8.6-10.3) 05/31/17 07:50 - Physical Exam Vitals and I&O: Vital Signs Temp 99.5 F 06/07/17 07:28 Pulse 82 06/07/17 11:13 Resp 19 06/07/17 11:13 BP 128/58 06/07/17 07:28 Pulse Ox 96 06/07/17 07:28 Intake & Output 06/06/17 06/07/17 06/07/17 18:59 06:59 18:59 Intake Total 1600 250 60 Balance 1600 250 60 Intake: Oral 1600 250 60 Other: # Voids 4 2 1 # Bowel Movements 0 0 0 Stool Characteristics Soft Formed Active Medications: Current Medications Acetaminophen (Tylenol) 650 mg PO Q4HR PRN PRN Reason: Mild Pain / Temp above 100 Stop: 07/28/17 22:46 Al Hydrox/Mg Hydrox/Simethicone (Maalox) 30 ml PO Q4HR PRN PRN Reason: GI DISTRESS Stop: 07/28/17 22:46 Divalproex Sodium (Depakote Er) 250 mg PO HS DANYELLE PRN Reason: Protocol Stop: 07/29/17 20:59 Last Admin: 06/06/17 20:57 Dose: 250 mg Ergocalciferol (Vitamin D) 50,000 iu PO QTUE DANYELLE Stop: 08/05/17 08:59 Last Admin: 06/06/17 09:06 Dose: 50,000 iu Lorazepam (Ativan) 0.5 mg PO Q4HR PRN; Protocol PRN Reason: Anxiety Stop: 06/28/17 22:46 Last Admin: 06/07/17 08:39 Dose: 0.5 mg Magnesium Hydroxide (Milk Of Magnesia) 30 ml PO DAILY PRN PRN Reason: Constipation Miscellaneous (Clinical Monitoring) 1 ea PRN PRN PRN Reason: XARELTO Stop: 07/29/17 14:09 Multivitamins/Vitamin C (Theragran) 1 tab PO DAILY DANYELLE Stop: 07/29/17 08:59 Last Admin: 06/07/17 08:39 Dose: 1 tab Olanzapine (Zyprexa) 2.5 mg PO HS DANYELLE PRN Reason: Protocol Stop: 07/29/17 20:59 Last Admin: 06/06/17 20:57 Dose: 2.5 mg Rivaroxaban (Xarelto) 20 mg PO DAILY DANYELLE Stop: 08/06/17 13:44 Triamcinolone Acetonide (Kenalog 0.025% Cre) 1 appl TP BID PRN PRN Reason: Rash Stop: 07/28/17 22:41 Last Admin: 06/03/17 17:28 Dose: 1 appl Zolpidem Tartrate (Ambien) 5 mg PO HS PRN PRN Reason: Insomnia Stop: 07/28/17 22:46 General: alert HEENT: NC/AT, PERRLA Neck: Supple Lungs: CTAB Internal Medicine Assmt/Plan - Assessment Assessment: psychosis - Plan Plan: continue current orders Nutritional Asmnt/Malnutr-PDOC - Dietary Evaluation Malnutrition Findings (Please click <Entered> for more info): Nutritional Asmnt/Malnutrition Start: 05/30/17 07: 57 Text: Status: Complete Freq: Document 06/01/17 12:38 [email or web address] (Rec: 06/01/17 12:47 [email or web address]) Nutritional Asmnt/Malnutrition Patient General Information Nutritional Screening Moderate Risk Diagnosis psychosis Pertinent Medical Hx/Surgical Hx psychosis, dementia, no other history available Subjective Information pt confused but eating 100% of meals Current Diet Order/ Nutrition Support regular Patient / S.O Not Indicated Pertinent Medications vit d, MOM, MVI, zyprexa, xarelto Pertinent Labs 05/31 BUN: 26 Nutritional Hx/Data Height 5 ft 4 in Height (Calculated Centimeters) 162.6 Current Weight (lbs) 110 lb Weight (Calculated Kilograms) 49.9 Weight (Calculated Grams) 70560.2 [place] Body Weight 120 % [place] Body Weight 92 Body Mass Index (BMI) 18.8 Weight Status Approriate GI Symptoms GI Symptoms None Last BM 06/01 Difficult in: None Food Allergies No Skin Integrity/Comment: intact, +2 BLE edema, dry, redness, and flakiness Current %PO Good (75-100%) Estimated Nutritional Goals BEE in Kcals: Using Current wt Calories/Kcals/Kg 30-35 Kcals Calculated 3137-0356 Protein: Using Current wt Protein g/k-1.2 Protein Calculated 50-60 Fluid: ml 9722-4105 (25-30 mL/kg) Nutritional Problem No current Nutrition Prob Problem n/a Etiology n/a Signs/Symptoms: n/a Malnutrition Alert Is there a minimum of two criteria No selected? Query Text:Check all the applicable criteria. A minimum of two criteria are recommended for diagnosis of either severe or non-severe malnutrition. Malnutrition Related to Morbid Obesity Malnutrition related to morbid obesity No Intervention/Recommendation Comments 1. Continue regular diet as ordered Expected Outcomes/Goals Expected Outcomes/Goals po intake >50% monitor wt, labs, skin, PO intake
[2017-06-08] MEDS: Multivitamin Tab PO SCH (08:34)
--- NOTE | 2017-06-08 11:29 | General Progress Note ---
Subjective - Review of Systems Events since last encounter: patient doing better in no distress Objective - Results Result Diagrams: 05/31/17 07:50 05/31/17 07:50 Recent Labs: Laboratory Last Values WBC 7.8 Th/cmm (4.8-10.8) 05/31/17 07:50 RBC 3.98 Mil/cmm (3.80-5.20) 05/31/17 07:50 Hgb 13.0 gm/dL (12-16) 05/31/17 07:50 Hct 38.0 % (41.0-60) L 05/31/17 07:50 MCV 95.6 fl (81-100) 05/31/17 07:50 MCH 32.8 pg (27.0-31.0) H 05/31/17 07:50 MCHC Differential 34.3 pg (28.0-36.0) 05/31/17 07:50 RDW 13.6 % (11.5-20.0) 05/31/17 07:50 Plt Count 163 Th/cmm (150-400) 05/31/17 07:50 MPV 8.8 fl 05/31/17 07:50 Neutrophils % 67.6 % (40.0-80.0) 05/31/17 07:50 Lymphocytes % 19.7 % (20.0-50.0) L 05/31/17 07:50 Monocytes % 9.1 % (2.0-10.0) 05/31/17 07:50 Eosinophils % 3.6 % (0.0-5.0) 05/31/17 07:50 Basophils % 0.0 % (0.0-2.0) 05/31/17 07:50 Sodium 139 mEq/L (136-145) 05/31/17 07:50 Potassium 4.2 mEq/L (3.5-5.1) 05/31/17 07:50 Chloride 109 mEq/L (98-107) H 05/31/17 07:50 Carbon Dioxide 24.0 mEq/L (21.0-31.0) 05/31/17 07:50 Anion Gap 10.2 (7.0-16.0) 05/31/17 07:50 BUN 26 mg/dL (7-25) H 05/31/17 07:50 Creatinine 0.7 mg/dL (0.6-1.2) 05/31/17 07:50 Est GFR ( Amer) TNP 05/31/17 07:50 Est GFR (Non-Af Amer) TNP 05/31/17 07:50 BUN/Creatinine Ratio 37.1 05/31/17 07:50 Glucose 86 mg/dL (70-105) 05/31/17 07:50 Calcium 9.4 mg/dL (8.6-10.3) 05/31/17 07:50 - Physical Exam Vitals and I&O: Vital Signs Temp 97.1 F 06/08/17 06:45 Pulse 81 06/08/17 08:00 Resp 18 06/08/17 08:00 BP 128/61 06/08/17 06:45 Pulse Ox 95 06/08/17 06:45 Intake & Output 06/07/17 06/08/17 06/08/17 18:59 06:59 18:59 Intake Total 660 120 Balance 660 120 Intake: Oral 660 120 Other: # Voids 3 3 # Bowel Movements 0 Active Medications: Current Medications Acetaminophen (Tylenol) 650 mg PO Q4HR PRN PRN Reason: Mild Pain / Temp above 100 Stop: 07/28/17 22:46 Al Hydrox/Mg Hydrox/Simethicone (Maalox) 30 ml PO Q4HR PRN PRN Reason: GI DISTRESS Stop: 07/28/17 22:46 Divalproex Sodium (Depakote Er) 250 mg PO HS DANYELLE PRN Reason: Protocol Stop: 07/29/17 20:59 Last Admin: 06/07/17 20:31 Dose: 250 mg Ergocalciferol (Vitamin D) 50,000 iu PO QTUE DANYELLE Stop: 08/05/17 08:59 Last Admin: 06/06/17 09:06 Dose: 50,000 iu Lorazepam (Ativan) 0.5 mg PO Q4HR PRN; Protocol PRN Reason: Anxiety Stop: 06/28/17 22:46 Last Admin: 06/07/17 08:39 Dose: 0.5 mg Magnesium Hydroxide (Milk Of Magnesia) 30 ml PO DAILY PRN PRN Reason: Constipation Miscellaneous (Clinical Monitoring) 1 ea PRN PRN PRN Reason: XARELTO Stop: 07/29/17 14:09 Multivitamins/Vitamin C (Theragran) 1 tab PO DAILY DANYELLE Stop: 07/29/17 08:59 Last Admin: 06/08/17 08:34 Dose: 1 tab Olanzapine (Zyprexa) 2.5 mg PO HS DANYELLE PRN Reason: Protocol Stop: 07/29/17 20:59 Last Admin: 06/07/17 20:31 Dose: 2.5 mg Rivaroxaban (Xarelto) 20 mg PO DAILY DANYELLE Stop: 08/06/17 13:44 Last Admin: 06/08/17 08:34 Dose: 20 mg Triamcinolone Acetonide (Kenalog 0.025% Cre) 1 appl TP BID PRN PRN Reason: Rash Stop: 07/28/17 22:41 Last Admin: 06/03/17 17:28 Dose: 1 appl Zolpidem Tartrate (Ambien) 5 mg PO HS PRN PRN Reason: Insomnia Stop: 07/28/17 22:46 Last Admin: 06/07/17 20:32 Dose: 5 mg Nutritional Asmnt/Malnutr-PDOC - Dietary Evaluation Malnutrition Findings (Please click <Entered> for more info): Nutritional Asmnt/Malnutrition Start: 05/30/17 07: 57 Text: Status: Complete Freq: Document 06/01/17 12:38 [email or web address] (Rec: 06/01/17 12:47 [email or web address]) Nutritional Asmnt/Malnutrition Patient General Information Nutritional Screening Moderate Risk Diagnosis psychosis Pertinent Medical Hx/Surgical Hx psychosis, dementia, no other history available Subjective Information pt confused but eating 100% of meals Current Diet Order/ Nutrition Support regular Patient / S.O Not Indicated Pertinent Medications vit d, MOM, MVI, zyprexa, xarelto Pertinent Labs 05/31 BUN: 26 Nutritional Hx/Data Height 1.63 m Height (Calculated Centimeters) 162.6 Current Weight (lbs) 49.895 kg Weight (Calculated Kilograms) 49.9 Weight (Calculated Grams) 02197.2 [place] Body Weight 120 % [place] Body Weight 92 Body Mass Index (BMI) 18.8 Weight Status Approriate GI Symptoms GI Symptoms None Last BM 06/01 Difficult in: None Food Allergies No Skin Integrity/Comment: intact, +2 BLE edema, dry, redness, and flakiness Current %PO Good (75-100%) Estimated Nutritional Goals BEE in Kcals: Using Current wt Calories/Kcals/Kg 30-35 Kcals Calculated 8724-1203 Protein: Using Current wt Protein g/k-1.2 Protein Calculated 50-60 Fluid: ml 0910-7346 (25-30 mL/kg) Nutritional Problem No current Nutrition Prob Problem n/a Etiology n/a Signs/Symptoms: n/a Malnutrition Alert Is there a minimum of two criteria No selected? Query Text:Check all the applicable criteria. A minimum of two criteria are recommended for diagnosis of either severe or non-severe malnutrition. Malnutrition Related to Morbid Obesity Malnutrition related to morbid obesity No Intervention/Recommendation Comments 1. Continue regular diet as ordered Expected Outcomes/Goals Expected Outcomes/Goals po intake >50% monitor wt, labs, skin, PO intake
--- NOTE | 2017-06-08 22:40 | Progress Notes ---
DATE: 06/08/2017 The patient seems calmer, taking her medications. [facility] hearing canceled because she has been consistently taking her meds. No side effects. No EPS. No over sedation. Less delusional. came yesterday, noting that she was calmer. ASSESSMENT: The patient is improving, better med compliance, no longer is delusional, psychosis dissipating. PLAN: We will continue to monitor. We are trying to find a safe place for the patient to discharge to. Recommending a care home for rehab. JOB# [id number]
[2017-06-09] MEDS: Multivitamin Tab PO SCH (08:02)
--- NOTE | 2017-06-09 08:12 | Progress Notes ---
DATE: 06/09/2017 The patient seems to be improving, calmer, more cooperative. She is taking her medications. Delusions dissipating. Sleeping well. Eating well. Getting along well with staff and peers. Some psychosis noted. Still at times believes that her doctor told her to stop taking her medications, which is part of her delusions, but she is taking medications. Riese hearing was canceled. The patient remains reclusive and isolative but significantly calmer. No medication side effects noted, no EPS for example. ASSESSMENT: The patient is improving, still with some delusions present. PLAN: We will monitor and follow up. We are trying to help with placement. At this time, we have no confirmed safe discharge plan. JOB# [id number]
--- NOTE | 2017-06-09 13:09 | Internal Medicine Prog Note ---
Internal Medicine Subjective - Subjective Service Date: 06/09/17 Patient is:: awake Per staff patient has:: no adverse event Internal Medicine Objective - Results Result Diagrams: 05/31/17 07:50 05/31/17 07:50 Recent Labs: Laboratory Last Values WBC 7.8 Th/cmm (4.8-10.8) 05/31/17 07:50 RBC 3.98 Mil/cmm (3.80-5.20) 05/31/17 07:50 Hgb 13.0 gm/dL (12-16) 05/31/17 07:50 Hct 38.0 % (41.0-60) L 05/31/17 07:50 MCV 95.6 fl (81-100) 05/31/17 07:50 MCH 32.8 pg (27.0-31.0) H 05/31/17 07:50 MCHC Differential 34.3 pg (28.0-36.0) 05/31/17 07:50 RDW 13.6 % (11.5-20.0) 05/31/17 07:50 Plt Count 163 Th/cmm (150-400) 05/31/17 07:50 MPV 8.8 fl 05/31/17 07:50 Neutrophils % 67.6 % (40.0-80.0) 05/31/17 07:50 Lymphocytes % 19.7 % (20.0-50.0) L 05/31/17 07:50 Monocytes % 9.1 % (2.0-10.0) 05/31/17 07:50 Eosinophils % 3.6 % (0.0-5.0) 05/31/17 07:50 Basophils % 0.0 % (0.0-2.0) 05/31/17 07:50 Sodium 139 mEq/L (136-145) 05/31/17 07:50 Potassium 4.2 mEq/L (3.5-5.1) 05/31/17 07:50 Chloride 109 mEq/L (98-107) H 05/31/17 07:50 Carbon Dioxide 24.0 mEq/L (21.0-31.0) 05/31/17 07:50 Anion Gap 10.2 (7.0-16.0) 05/31/17 07:50 BUN 26 mg/dL (7-25) H 05/31/17 07:50 Creatinine 0.7 mg/dL (0.6-1.2) 05/31/17 07:50 Est GFR ( Amer) TNP 05/31/17 07:50 Est GFR (Non-Af Amer) TNP 05/31/17 07:50 BUN/Creatinine Ratio 37.1 05/31/17 07:50 Glucose 86 mg/dL (70-105) 05/31/17 07:50 Calcium 9.4 mg/dL (8.6-10.3) 05/31/17 07:50 - Physical Exam Vitals and I&O: Vital Signs Temp 97.7 F 06/08/17 20:00 Pulse 85 06/08/17 20:00 Resp 18 06/08/17 20:00 BP 135/69 06/08/17 20:00 Pulse Ox 97 06/08/17 20:00 Intake & Output 06/08/17 06/09/17 06/09/17 18:59 06:59 18:59 Intake Total 600 500 Balance 600 500 Intake: Oral 600 500 Other: # Voids 3 2 # Bowel Movements 0 Active Medications: Current Medications Acetaminophen (Tylenol) 650 mg PO Q4HR PRN PRN Reason: Mild Pain / Temp above 100 Stop: 07/28/17 22:46 Al Hydrox/Mg Hydrox/Simethicone (Maalox) 30 ml PO Q4HR PRN PRN Reason: GI DISTRESS Stop: 07/28/17 22:46 Divalproex Sodium (Depakote Er) 250 mg PO HS DANYELLE PRN Reason: Protocol Stop: 07/29/17 20:59 Last Admin: 06/08/17 20:48 Dose: 250 mg Ergocalciferol (Vitamin D) 50,000 iu PO QTUE DANYELLE Stop: 08/05/17 08:59 Last Admin: 06/06/17 09:06 Dose: 50,000 iu Lorazepam (Ativan) 0.5 mg PO Q4HR PRN; Protocol PRN Reason: Anxiety Stop: 06/28/17 22:46 Last Admin: 06/09/17 08:02 Dose: 0.5 mg Magnesium Hydroxide (Milk Of Magnesia) 30 ml PO DAILY PRN PRN Reason: Constipation Miscellaneous (Clinical Monitoring) 1 ea MC PRN PRN PRN Reason: XARELTO Stop: 07/29/17 14:09 Multivitamins/Vitamin C (Theragran) 1 tab PO DAILY DANYELLE Stop: 07/29/17 08:59 Last Admin: 06/09/17 08:02 Dose: 1 tab Olanzapine (Zyprexa) 2.5 mg PO HS DANYELLE PRN Reason: Protocol Stop: 07/29/17 20:59 Last Admin: 06/08/17 21:00 Dose: 2.5 mg Rivaroxaban (Xarelto) 20 mg PO DAILY DANYELLE Stop: 08/06/17 13:44 Last Admin: 06/09/17 08:02 Dose: 20 mg Triamcinolone Acetonide (Kenalog 0.025% Cre) 1 appl TP BID PRN PRN Reason: Rash Stop: 07/28/17 22:41 Last Admin: 06/03/17 17:28 Dose: 1 appl Zolpidem Tartrate (Ambien) 5 mg PO HS PRN PRN Reason: Insomnia Stop: 07/28/17 22:46 Last Admin: 06/08/17 20:48 Dose: 5 mg General: alert HEENT: NC/AT, PERRLA Neck: Supple Lungs: CTAB Internal Medicine Assmt/Plan - Assessment Assessment: psychosis - Plan Plan: continue current orders Nutritional Asmnt/Malnutr-PDOC - Dietary Evaluation Malnutrition Findings (Please click <Entered> for more info): Nutritional Asmnt/Malnutrition Start: 05/30/17 07: 57 Text: Status: Complete Freq: Document 06/01/17 12:38 [email or web address] (Rec: 06/01/17 12:47 [email or web address]) Nutritional Asmnt/Malnutrition Patient General Information Nutritional Screening Moderate Risk Diagnosis psychosis Pertinent Medical Hx/Surgical Hx psychosis, dementia, no other history available Subjective Information pt confused but eating 100% of meals Current Diet Order/ Nutrition Support regular Patient / S.O Not Indicated Pertinent Medications vit d, MOM, MVI, zyprexa, xarelto Pertinent Labs 05/31 BUN: 26 Nutritional Hx/Data Height 5 ft 4 in Height (Calculated Centimeters) 162.6 Current Weight (lbs) 110 lb Weight (Calculated Kilograms) 49.9 Weight (Calculated Grams) 23598.2 [place] Body Weight 120 % [place] Body Weight 92 Body Mass Index (BMI) 18.8 Weight Status Approriate GI Symptoms GI Symptoms None Last BM 15 Difficult in: None Food Allergies No Skin Integrity/Comment: intact, +2 BLE edema, dry, redness, and flakiness Current %PO Good (75-100%) Estimated Nutritional Goals BEE in Kcals: Using Current wt Calories/Kcals/Kg 30-35 Kcals Calculated 4900-1069 Protein: Using Current wt Protein g/k-1.2 Protein Calculated 50-60 Fluid: ml 3516-2319 (25-30 mL/kg) Nutritional Problem No current Nutrition Prob Problem n/a Etiology n/a Signs/Symptoms: n/a Malnutrition Alert Is there a minimum of two criteria No selected? Query Text:Check all the applicable criteria. A minimum of two criteria are recommended for diagnosis of either severe or non-severe malnutrition. Malnutrition Related to Morbid Obesity Malnutrition related to morbid obesity No Intervention/Recommendation Comments 1. Continue regular diet as ordered Expected Outcomes/Goals Expected Outcomes/Goals po intake >50% monitor wt, labs, skin, PO intake
[2017-06-10] MEDS: Multivitamin Tab PO SCH (08:28)
--- NOTE | 2017-06-10 18:33 | Progress Notes ---
DATE: 06/10/2017 SUBJECTIVE: The patient was seen in her room, lying in the bed. The patient appears to be agitated and delusional, otherwise appears to be in no acute distress. OBJECTIVE: VITAL SIGNS: Temperature 97.6, heart rate 74, blood pressure 102/52, respirations 18, 97% on room air. HEENT: Head is atraumatic and normocephalic. Eyes: Bilateral conjunctivae are clear. Bilateral pupils are equally round and reactive. NECK: Supple. No JVD. CARDIOVASCULAR: S1 and S2 without murmur. PULMONARY: Clear to auscultation. GASTROINTESTINAL: Soft and nontender without guarding. Positive bowel sounds. MUSCULOSKELETAL: No clubbing. No cyanosis noted. ASSESSMENT: 1. Psychosis. 2. Insomnia. 3. Osteoarthritis. 4. Vitamin D deficiency. PLAN: We will keep the patient in Inpatient Psychiatric Unit. We will follow up with a psychiatrist to monitor the patient's behavior. Treatment plans were discussed with the patient's nurse. Treatment plans were discussed with Dr. Lindsey. JOB# [id number]
--- NOTE | 2017-06-10 21:08 | Progress Notes ---
DATE: The patient seen and evaluate. The patient's chart reviewed. Overnight staff reported the patient observed to be more cooperative, more engaging, sleeping well. Today, the patient further denies any side effects of medications, less delusional, although severe at times, disorganized, more comply with medications, disorganized, some mild noted calmness. MENTAL STATUS EXAMINATION: More calm, less delusional. ASSESSMENT AND PLAN: The patient residual, persistent, disorganized thought process, impairs ability to provide food, [facility] or clothing. We will continue with primary psychiatrist's treatment plan which includes Depakote 250 a day, olanzapine 2.5 mg at nighttime. Riese was recently canceled. She is noncompliant with medication. [facility]# [id number]
--- NOTE | 2017-06-11 08:47 | General Progress Note ---
Subjective - Review of Systems Events since last encounter: patient awake inn o distress confused Objective - Results Result Diagrams: 05/31/17 07:50 05/31/17 07:50 Recent Labs: Laboratory Last Values WBC 7.8 Th/cmm (4.8-10.8) 05/31/17 07:50 RBC 3.98 Mil/cmm (3.80-5.20) 05/31/17 07:50 Hgb 13.0 gm/dL (12-16) 05/31/17 07:50 Hct 38.0 % (41.0-60) L 05/31/17 07:50 MCV 95.6 fl (81-100) 05/31/17 07:50 MCH 32.8 pg (27.0-31.0) H 05/31/17 07:50 MCHC Differential 34.3 pg (28.0-36.0) 05/31/17 07:50 RDW 13.6 % (11.5-20.0) 05/31/17 07:50 Plt Count 163 Th/cmm (150-400) 05/31/17 07:50 MPV 8.8 fl 05/31/17 07:50 Neutrophils % 67.6 % (40.0-80.0) 05/31/17 07:50 Lymphocytes % 19.7 % (20.0-50.0) L 05/31/17 07:50 Monocytes % 9.1 % (2.0-10.0) 05/31/17 07:50 Eosinophils % 3.6 % (0.0-5.0) 05/31/17 07:50 Basophils % 0.0 % (0.0-2.0) 05/31/17 07:50 Sodium 139 mEq/L (136-145) 05/31/17 07:50 Potassium 4.2 mEq/L (3.5-5.1) 05/31/17 07:50 Chloride 109 mEq/L (98-107) H 05/31/17 07:50 Carbon Dioxide 24.0 mEq/L (21.0-31.0) 05/31/17 07:50 Anion Gap 10.2 (7.0-16.0) 05/31/17 07:50 BUN 26 mg/dL (7-25) H 05/31/17 07:50 Creatinine 0.7 mg/dL (0.6-1.2) 05/31/17 07:50 Est GFR ( Amer) TNP 05/31/17 07:50 Est GFR (Non-Af Amer) TNP 05/31/17 07:50 BUN/Creatinine Ratio 37.1 05/31/17 07:50 Glucose 86 mg/dL (70-105) 05/31/17 07:50 Calcium 9.4 mg/dL (8.6-10.3) 05/31/17 07:50 - Physical Exam Vitals and I&O: Vital Signs Temp 98.2 F 06/10/17 16:49 Pulse 74 06/10/17 20:00 Resp 74 06/10/17 20:00 BP 102/48 06/10/17 16:49 Pulse Ox 97 06/10/17 16:49 Intake & Output 06/10/17 06/11/17 06/11/17 18:59 06:59 18:59 Intake Total 600 Balance 600 Intake: Oral 600 Other: # Voids 2 # Bowel Movements 0 Stool Characteristics Soft Soft Brown Brown Active Medications: Current Medications Acetaminophen (Tylenol) 650 mg PO Q4HR PRN PRN Reason: Mild Pain / Temp above 100 Stop: 07/28/17 22:46 Al Hydrox/Mg Hydrox/Simethicone (Maalox) 30 ml PO Q4HR PRN PRN Reason: GI DISTRESS Stop: 07/28/17 22:46 Divalproex Sodium (Depakote Er) 250 mg PO HS DANYELLE PRN Reason: Protocol Stop: 07/29/17 20:59 Last Admin: 06/10/17 21:31 Dose: 250 mg Ergocalciferol (Vitamin D) 50,000 iu PO QTUE DANYELLE Stop: 08/05/17 08:59 Last Admin: 06/06/17 09:06 Dose: 50,000 iu Lorazepam (Ativan) 0.5 mg PO Q4HR PRN; Protocol PRN Reason: Anxiety Stop: 06/28/17 22:46 Last Admin: 06/11/17 04:05 Dose: 0.5 mg Magnesium Hydroxide (Milk Of Magnesia) 30 ml PO DAILY PRN PRN Reason: Constipation Miscellaneous (Clinical Monitoring) 1 ea MC PRN PRN PRN Reason: XARELTO Stop: 07/29/17 14:09 Multivitamins/Vitamin C (Theragran) 1 tab PO DAILY DANYELLE Stop: 07/29/17 08:59 Last Admin: 06/10/17 08:28 Dose: Not Given Olanzapine (Zyprexa) 2.5 mg PO HS DANYELLE PRN Reason: Protocol Stop: 07/29/17 20:59 Last Admin: 06/10/17 21:32 Dose: 2.5 mg Rivaroxaban (Xarelto) 20 mg PO DAILY DANYELLE Stop: 08/06/17 13:44 Last Admin: 06/10/17 08:28 Dose: Not Given Triamcinolone Acetonide (Kenalog 0.025% Cre) 1 appl TP BID PRN PRN Reason: Rash Stop: 07/28/17 22:41 Last Admin: 06/03/17 17:28 Dose: 1 appl Zolpidem Tartrate (Ambien) 5 mg PO HS PRN PRN Reason: Insomnia Stop: 07/28/17 22:46 Last Admin: 06/10/17 21:33 Dose: 5 mg Nutritional Asmnt/Malnutr-PDOC - Dietary Evaluation Malnutrition Findings (Please click <Entered> for more info): Nutritional Asmnt/Malnutrition Start: 05/30/17 07: 57 Text: Status: Complete Freq: Document 06/01/17 12:38 [email or web address] (Rec: 06/01/17 12:47 [email or web address]) Nutritional Asmnt/Malnutrition Patient General Information Nutritional Screening Moderate Risk Diagnosis psychosis Pertinent Medical Hx/Surgical Hx psychosis, dementia, no other history available Subjective Information pt confused but eating 100% of meals Current Diet Order/ Nutrition Support regular Patient / S.O Not Indicated Pertinent Medications vit d, MOM, MVI, zyprexa, xarelto Pertinent Labs 05/31 BUN: 26 Nutritional Hx/Data Height 1.63 m Height (Calculated Centimeters) 162.6 Current Weight (lbs) 49.895 kg Weight (Calculated Kilograms) 49.9 Weight (Calculated Grams) 43624.2 [place] Body Weight 120 % [place] Body Weight 92 Body Mass Index (BMI) 18.8 Weight Status Approriate GI Symptoms GI Symptoms None Last BM 06/01 Difficult in: None Food Allergies No Skin Integrity/Comment: intact, +2 BLE edema, dry, redness, and flakiness Current %PO Good (75-100%) Estimated Nutritional Goals BEE in Kcals: Using Current wt Calories/Kcals/Kg 30-35 Kcals Calculated 2232-6293 Protein: Using Current wt Protein g/k-1.2 Protein Calculated 50-60 Fluid: ml 5827-5136 (25-30 mL/kg) Nutritional Problem No current Nutrition Prob Problem n/a Etiology n/a Signs/Symptoms: n/a Malnutrition Alert Is there a minimum of two criteria No selected? Query Text:Check all the applicable criteria. A minimum of two criteria are recommended for diagnosis of either severe or non-severe malnutrition. Malnutrition Related to Morbid Obesity Malnutrition related to morbid obesity No Intervention/Recommendation Comments 1. Continue regular diet as ordered Expected Outcomes/Goals Expected Outcomes/Goals po intake >50% monitor wt, labs, skin, PO intake
[2017-06-11] MEDS: Multivitamin Tab PO SCH (10:06)
--- NOTE | 2017-06-11 19:32 | Progress Notes ---
DATE: SUBJECTIVE: The patient was seen and evaluated. The patient's chart reviewed. Overnight nursing staff reported no aggressive behavior. Today on [id number] evaluation, the patient is noted in her room. She is observed to be talking, but no aggression associated to talk, she is engaging to herself. MENTAL STATUS EXAMINATION: Less delusional, some mild responding. ASSESSMENT AND PLAN: The patient continues to be compliant with medications. Continue with the current medication regimen, which includes Depakote and olanzapine to target the residual voices that continue to improve with the recent augmentation of medication. JOB# [id number]
[2017-06-12] MEDS: Multivitamin Tab PO SCH (10:05)
--- NOTE | 2017-06-12 12:39 | Internal Medicine Prog Note ---
Internal Medicine Subjective - Subjective Service Date: 06/12/17 Patient is:: awake Per staff patient has:: no adverse event Internal Medicine Objective - Results Result Diagrams: 05/31/17 07:50 05/31/17 07:50 Recent Labs: Laboratory Last Values WBC 7.8 Th/cmm (4.8-10.8) 05/31/17 07:50 RBC 3.98 Mil/cmm (3.80-5.20) 05/31/17 07:50 Hgb 13.0 gm/dL (12-16) 05/31/17 07:50 Hct 38.0 % (41.0-60) L 05/31/17 07:50 MCV 95.6 fl (81-100) 05/31/17 07:50 MCH 32.8 pg (27.0-31.0) H 05/31/17 07:50 MCHC Differential 34.3 pg (28.0-36.0) 05/31/17 07:50 RDW 13.6 % (11.5-20.0) 05/31/17 07:50 Plt Count 163 Th/cmm (150-400) 05/31/17 07:50 MPV 8.8 fl 05/31/17 07:50 Neutrophils % 67.6 % (40.0-80.0) 05/31/17 07:50 Lymphocytes % 19.7 % (20.0-50.0) L 05/31/17 07:50 Monocytes % 9.1 % (2.0-10.0) 05/31/17 07:50 Eosinophils % 3.6 % (0.0-5.0) 05/31/17 07:50 Basophils % 0.0 % (0.0-2.0) 05/31/17 07:50 Sodium 139 mEq/L (136-145) 05/31/17 07:50 Potassium 4.2 mEq/L (3.5-5.1) 05/31/17 07:50 Chloride 109 mEq/L (98-107) H 05/31/17 07:50 Carbon Dioxide 24.0 mEq/L (21.0-31.0) 05/31/17 07:50 Anion Gap 10.2 (7.0-16.0) 05/31/17 07:50 BUN 26 mg/dL (7-25) H 05/31/17 07:50 Creatinine 0.7 mg/dL (0.6-1.2) 05/31/17 07:50 Est GFR ( Amer) TNP 05/31/17 07:50 Est GFR (Non-Af Amer) TNP 05/31/17 07:50 BUN/Creatinine Ratio 37.1 05/31/17 07:50 Glucose 86 mg/dL (70-105) 05/31/17 07:50 Calcium 9.4 mg/dL (8.6-10.3) 05/31/17 07:50 - Physical Exam Vitals and I&O: Vital Signs Temp 97.9 F 06/12/17 06:35 Pulse 73 06/12/17 06:35 Resp 18 06/12/17 06:35 BP 110/57 06/12/17 06:35 Pulse Ox 96 06/12/17 06:35 Intake & Output 06/11/17 06/12/17 06/12/17 18:59 06:59 18:59 Intake Total 600 240 Balance 600 240 Intake: Oral 600 240 Other: # Voids 2 1 # Bowel Movements 1 Active Medications: Current Medications Acetaminophen (Tylenol) 650 mg PO Q4HR PRN PRN Reason: Mild Pain / Temp above 100 Stop: 07/28/17 22:46 Al Hydrox/Mg Hydrox/Simethicone (Maalox) 30 ml PO Q4HR PRN PRN Reason: GI DISTRESS Stop: 07/28/17 22:46 Divalproex Sodium (Depakote Er) 250 mg PO HS DANYELLE PRN Reason: Protocol Stop: 07/29/17 20:59 Last Admin: 06/11/17 20:53 Dose: 250 mg Ergocalciferol (Vitamin D) 50,000 iu PO QTUE DANYELLE Stop: 08/05/17 08:59 Last Admin: 06/06/17 09:06 Dose: 50,000 iu Lorazepam (Ativan) 0.5 mg PO Q4HR PRN; Protocol PRN Reason: Anxiety Stop: 06/28/17 22:46 Last Admin: 06/12/17 10:03 Dose: 0.5 mg Magnesium Hydroxide (Milk Of Magnesia) 30 ml PO DAILY PRN PRN Reason: Constipation Miscellaneous (Clinical Monitoring) 1 ea PRN PRN PRN Reason: XARELTO Stop: 07/29/17 14:09 Multivitamins/Vitamin C (Theragran) 1 tab PO DAILY DANYELLE Stop: 07/29/17 08:59 Last Admin: 06/12/17 10:05 Dose: 1 tab Olanzapine (Zyprexa) 2.5 mg PO HS DANYELLE PRN Reason: Protocol Stop: 07/29/17 20:59 Last Admin: 06/11/17 20:52 Dose: 2.5 mg Rivaroxaban (Xarelto) 20 mg PO DAILY DANYELLE Stop: 08/06/17 13:44 Last Admin: 06/12/17 10:05 Dose: 20 mg Triamcinolone Acetonide (Kenalog 0.025% Cre) 1 appl TP BID PRN PRN Reason: Rash Stop: 07/28/17 22:41 Last Admin: 06/03/17 17:28 Dose: 1 appl Zolpidem Tartrate (Ambien) 5 mg PO HS PRN PRN Reason: Insomnia Stop: 07/28/17 22:46 Last Admin: 06/10/17 21:33 Dose: 5 mg General: alert HEENT: NC/AT, PERRLA Neck: Supple Lungs: CTAB Internal Medicine Assmt/Plan - Assessment Assessment: psychosis - Plan Plan: continue current orders Nutritional Asmnt/Malnutr-PDOC - Dietary Evaluation Malnutrition Findings (Please click <Entered> for more info): Nutritional Asmnt/Malnutrition Start: 05/30/17 07: 57 Text: Status: Complete Freq: Document 06/01/17 12:38 [email or web address] (Rec: 06/01/17 12:47 [email or web address]) Nutritional Asmnt/Malnutrition Patient General Information Nutritional Screening Moderate Risk Diagnosis psychosis Pertinent Medical Hx/Surgical Hx psychosis, dementia, no other history available Subjective Information pt confused but eating 100% of meals Current Diet Order/ Nutrition Support regular Patient / S.O Not Indicated Pertinent Medications vit d, MOM, MVI, zyprexa, xarelto Pertinent Labs 05/31 BUN: 26 Nutritional Hx/Data Height 5 ft 4 in Height (Calculated Centimeters) 162.6 Current Weight (lbs) 110 lb Weight (Calculated Kilograms) 49.9 Weight (Calculated Grams) 05235.2 [place] Body Weight 120 % [place] Body Weight 92 Body Mass Index (BMI) 18.8 Weight Status Approriate GI Symptoms GI Symptoms None Last BM 15 Difficult in: None Food Allergies No Skin Integrity/Comment: intact, +2 BLE edema, dry, redness, and flakiness Current %PO Good (75-100%) Estimated Nutritional Goals BEE in Kcals: Using Current wt Calories/Kcals/Kg 30-35 Kcals Calculated 2938-1332 Protein: Using Current wt Protein g/k-1.2 Protein Calculated 50-60 Fluid: ml 3914-4422 (25-30 mL/kg) Nutritional Problem No current Nutrition Prob Problem n/a Etiology n/a Signs/Symptoms: n/a Malnutrition Alert Is there a minimum of two criteria No selected? Query Text:Check all the applicable criteria. A minimum of two criteria are recommended for diagnosis of either severe or non-severe malnutrition. Malnutrition Related to Morbid Obesity Malnutrition related to morbid obesity No Intervention/Recommendation Comments 1. Continue regular diet as ordered Expected Outcomes/Goals Expected Outcomes/Goals po intake >50% monitor wt, labs, skin, PO intake
--- NOTE | 2017-06-12 17:56 | Progress Notes ---
DATE: 06/12/2017 SUBJECTIVE: The patient seen, chart reviewed, discussed with staff. The patient more cooperative, no aggressive behaviors, more engaged, less delusional, taking her medications, better medication compliance. A Riese hearing was canceled. Paranoia dissipating. She remains reclusive. She remains isolative. She is hopeful to go home. ASSESSMENT: The patient seems to be improving, more cooperative, amenable to treatment and psychotic symptoms dissipating. No delusions. PLAN: We will continue to monitor. I did get in touch with case liner. I am trying to make sure she has a safe discharge plan. JOB# [id number]
[2017-06-13] MEDS: Multivitamin Tab PO SCH (10:16)
--- NOTE | 2017-06-13 16:21 | Discharge Summary ---
DATE OF DISCHARGE: 06/13/2017 JUSTIFICATION FOR HOSPITALIZATION: The patient brought in, unruly at home, psychotic at home, delusional at home, responding to internal stimuli. HISTORY OF PRESENT ILLNESS: An 82-year-old female with history of mental illness, bipolar, confirmed by hallucinating, talking to people that were not there, unruly, agitated, speaking and yelling on presentation. Poor medication compliance. PAST PSYCHIATRIC HISTORY: Bipolar. SOCIAL HISTORY: Born in [place] living in [place] with . I did speak with over the phone and met him at bedside. MEDICATIONS: Noted. Refusing Zyprexa. MENTAL STATUS EXAMINATION: Please see full psych eval for details. PROVISIONAL DIAGNOSES: Psychosis, unspecified; mood, unspecified, rule out bipolar versus schizophrenia, rule out dementia, also poor medication and treatment compliance. MEDICAL: Please see full H and P. HOSPITAL COURSE: After initial assessment, the patient has started back on medications. After I spoke with he noted Zyprexa and Depakote worked well for her. The patient refused medications, Riese was filed. However, the patient began to take Zyprexa and the Riese was canceled and she improved and she was no longer psychotic and no longer delusional, no SI, no HI. Sleeping well, eating well, no agitation. Placement was confirmed. CONDITION UPON DISCHARGE: Improved. Better ADLs, allowing ADLs, better eye contact, more oriented. Mood clinically okay. Affect constricted, more engaged in exam. No SI, no HI. No psychosis. Insight and judgment better. DISCHARGE DIAGNOSES: Bipolar, unspecified. Poor medication and treatment compliance. MEDICAL: Please see full H and P. PROGNOSIS: The patient follows up at the detention facility and remains compliant. Prognosis will improve, otherwise guarded. JOB# [id number]
== END 2017-06-13 13:30 | DRG 885 ==
LOC: GERO 21:00
PROVIDERS: ADMIT Psychiatry & Neurology Psychiatry; ATTEND Psychiatry & Neurology Psychiatry
DX: F31.9 Bipolar disorder, unspecified (principal); F03.90 Unspecified dementia, unspecified severity, without behavioral disturbance, psychotic disturbance, mood disturbance, and anxiety; F29 Unspecified psychosis not due to a substance or known physiological condition; F20.9 Schizophrenia, unspecified; F39 Unspecified mood [affective] disorder; E55.9 Vitamin D deficiency, unspecified; G47.00 Insomnia, unspecified; M19.90 Unspecified osteoarthritis, unspecified site; Z86.718 Personal history of other venous thrombosis and embolism; Z79.899 Other long term (current) drug therapy; Z88.5 Allergy status to narcotic agent
CPT/HCPCS: 36415-UA; 80048-TC; 85025-TC; 90899; G0410; J1200; J1630; J2060

== ENCOUNTER 2019-01-11 00:43 | Inpatient (IN) | payer MEDICARE, BC ==
[2019-01-11 03:34] VITALS: BP 149/69
--- NOTE | 2019-01-11 13:44 | History and Physical ---
History of Present Illness - HPI Chief Complaint: 83 y/o female patient was brought into ER due to Increased agitation and Psychotic behavior. HPI: 83 y/o female patient was admitted to [facility] due to Increased agitation and Psychotic behavior. Patient has history of Bipolar disorder. Patient had an ER assessment and a complete workup done. Patient was diagnosed with Increased agitation, Acute Psychosis, History of Bipolar disorder. Patient will have a Psych consult. I will follow, treat and monitor patient. Patient will continue current treatment plan as ordered. 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 Pertinent Hx GI: Report: No Pertinent Hx Psych: Report: Bipolar, Psychosis Musculoskeletal: Report: No Pertinent Hx Rheumatologic: Report: No pertinent Hx Infectious Disease: Report: No Pertinent Hx Renal/: Report: No Pertinent Hx Endocrine: Report: No Pertinent Hx Dermatology: Report: No Pertinent Hx - Past Surgical History Past Surgical History: No pertinent Hx Family Medical History - Family Member Mother History Unknown: Yes Social History Smoke: No Alcohol: Occassional Drugs: None Lives: With Family Domestic Violence: Negative Health Maintenance Health Maintenance: Other (Please see chart.) - Medications Home Medications: Home Medication Medication Instructions Recorded Type Al Hyd/Mg Hyd/Simethicone [Maalox] 30 ml PO Q4HR PRN udc 06/13/17 Rx Ergocalciferol [Vitamin D2] 50,000 iu PO QTUE sgl 06/13/17 Rx Lorazepam [Ativan] 0.5 mg PO Q4HR PRN tab 06/13/17 Rx Magnesium Hydroxide [Milk of 30 ml PO DAILY PRN udc 06/13/17 Rx Magnesia] Multivitamin [Theragran] 1 tab PO DAILY tab 06/13/17 Rx OLANZapine [ZyPREXA] 2.5 mg PO HS tab 06/13/17 Rx Rivaroxaban [Xarelto] 20 mg PO DAILY tab 06/13/17 Rx Triamcinolone Acet 0.025% Cre 1 appl TP BID PRN appl 06/13/17 Rx [Kenalog 0.025% Cre] Zolpidem Tartrate [Ambien] 5 mg PO HS PRN tab 06/13/17 Rx Acetaminophen [Tylenol] 650 mg PO Q8H PRN 01/11/19 History Divalproex ER [Depakote ER] 250 mg PO DAILY 01/11/19 History Erythromycin Ophth Oint 1 appl EACH EYE DAILY 01/11/19 History [Erythrocin Ophth Oint] QUEtiapine Fumarate [SEROquel] 25 mg PO TID 01/11/19 History Thiamine [Vitamin B1] 100 mg PO DAILY 01/11/19 History Other Medications: Please see medication reconciliation sheet. - Allergies Allergies/Adverse Reactions: Allergies Allergy/AdvReac Type Severity Reaction Status Date / Time morphine Allergy Verified 05/29/17 22:14 Review of Systems - Review of Systems Review of Systems: Patient is very agitated. Constitutional: Report: No Significant Eyes: Report: No Significant ENT: Report: No Significant Respiratory: Report: No Significant Cardiovascular: Report: No Significant Gastrointestinal: Report: No Significant Genitourinary: Report: No Significant Musculoskeletal: Report: No Significant Skin: Report: No Significant Neurological: Report: Other (Agitated.) Physical Exam - Physical Exam HEENT: Report: Ears Nose Throat within normal limits Neck: Report: Within normal limits Cardiovascular Systems: Report: +s1/s2 noted Respiratory: Report: Breath Sounds are within normal limits Abdomen: Report: Non-tender to palpation Back: Report: Inspection of back is within normal limits. Extremities: Report: Non-tender to palpation. Skin: Report: Color of skin is within normal limits Neuro/Psych: Report: Disoriented to name time or place - Lab Results All Lab Results last 24 hours: see orders. - Assessment Assessment: Increased agitation. Acute Psychosis. History of Bipolar disorder. - Plan Plan: Continuation of care. Psych consult. Monitor vitals and labs, MRSA screening. Wound care prn. Continue present meds as directed. Monitor diet/nutritional support. Continue current treatment plan as ordered.
--- NOTE | 2019-01-11 17:35 | Psychiatric Evaluation ---
DATE OF SERVICE: 01/11/2019 JUSTIFICATION FOR HOSPITALIZATION: The patient on a hold, was believing food is being poisoned. HISTORY OF PRESENT ILLNESS: An 83-year-old female known to this clinician from last year. She was brought back in on a hold, believing food was being poisoned, throwing it out of the porch of the house. The patient states she does not know why she is here, still feels the food is being poisoned, stating that she is "not feeling well." She knows the year, the month. She knows where she is. She has no idea why she is here. The patient states "feeling frightened". PAST PSYCHIATRIC HISTORY: Admission last year. SOCIAL HISTORY: Born in [place], . She states she has no kids. She states she lives in [place]. Apparently, her has Parkinson's disease per the hold. Medications were noted. It is unclear if she is taking them or not. MENTAL STATUS EXAMINATION: Stated age, little eye contact, upset, irritable, some delusions noted. Fair orientation, believes food is being poisoned. No SI, no HI. Poor insight. PROVISIONAL DIAGNOSES: Per discharge summary from her last admission, psychosis, unspecified; mood, unspecified; rule out bipolar versus schizophrenia, rule out dementia, poor medication and treatment compliance. MEDICAL: Please see full H and P. ESTIMATED LENGTH OF STAY: 7-10 days. ASSESSMENT: The patient requiring hospitalization, delusional, not eating food, believing food is poisoned. PLAN: We will restart medications. Treatment plan includes group as well as milieu therapy. We will restart Zyprexa. It seems to work for her in the past. CONDITIONS FOR DISCHARGE: Improved mood, improved affect and control of any delusions. JOB# [id number]
[2019-01-12] MEDS ORDERED: Eucerin Cream 16 oz Jar TP SCH (09:00)
[2019-01-12] MEDS: Eucerin Cream 16 oz Jar TP SCH ×2 (09:42→16:53)
[2019-01-12] MEDS: Venelex 60gm Tube TP SCH (09:42)
--- NOTE | 2019-01-12 13:16 | Internal Medicine Prog Note ---
Internal Medicine Subjective - Subjective Service Date: 01/12/19 Patient seen and examined:: with staff Patient is:: awake, verbal Patient Complaints of:: other Per staff patient has:: no adverse event, no episodes of fall Internal Medicine Objective - Physical Exam Vitals and I&O: Vital Signs Temp 96.9 F 01/12/19 06:41 Pulse 62 01/12/19 06:41 Resp 18 01/12/19 08:00 BP 141/66 01/12/19 06:41 Pulse Ox 95 01/12/19 06:41 Intake & Output 01/11/19 01/12/19 01/12/19 18:59 06:59 18:59 Intake Total 1300 240 Balance 1300 240 Intake: Oral 1300 240 Other: # Voids 4 # Bowel Movements 0 Active Medications: Current Medications Acetaminophen (Tylenol) 650 mg PO Q8H PRN PRN Reason: Mild Pain / Temp above 100 Stop: 03/12/19 03:48 [place] Oil/[place] Balsam/Trypsin (Venelex) 0 appl TP DAILY DANYELLE Stop: 03/13/19 08:59 Last Admin: 01/12/19 09:42 Dose: 1 appl Lorazepam (Ativan) 0.5 mg PO Q4H PRN; Protocol PRN Reason: Anxiety Stop: 03/12/19 03:48 Multi-Ingredient Cream (Eucerin Cream) 1 appl TP BID DANYELLE Stop: 03/13/19 08:59 Last Admin: 01/12/19 09:42 Dose: 1 appl Olanzapine (Zyprexa) 5 mg PO HS DANYELLE; Protocol Stop: 03/12/19 20:59 Last Admin: 01/11/19 21:54 Dose: Not Given Zolpidem Tartrate (Ambien) 5 mg PO HS PRN PRN Reason: Insomnia Stop: 03/12/19 03:48 Physical Exam: Patient is agitated and anxious. General: demented HEENT: NC/AT Neck: Supple Lungs: CTAB Cardiovascular: RRR, Normal S1 Abdomen: soft, non-tender Extremities: clear Neurological: no change Internal Medicine Assmt/Plan - Assessment Assessment: Increased agitation. Acute Psychosis. History of Bipolar disorder. - Plan Plan: Continuation of care. Psych consult. Monitor vitals and labs, MRSA screening. Wound care prn. Continue present meds as directed. Monitor diet/nutritional support. Continue current treatment plan as ordered. Nutritional Asmnt/Malnutr-PDOC - Dietary Evaluation Malnutrition Findings (Please click <Entered> for more info): see orders.
--- NOTE | 2019-01-12 18:44 | Progress Notes ---
DATE: 01/12/2019 SUBJECTIVE: The patient was seen and evaluated. The patient's chart reviewed. IDENTIFYING DATA: An 83-year-old female brought in here yesterday believing that the food was being poisoned, threw it on the porch of the house. Today, on [id number] evaluation, the patient perseverates that she lives in [place]. She has not slept for many days, she reports. MENTAL STATUS EXAMINATION: Racing thoughts, insomnia, manic, delusional. ASSESSMENT AND PLAN: The patient is an 83-year-old female who needs a lot of redirection to maintain a simple conversation secondary to flight of ideas. We will continue with the recent initiation of the Zyprexa to target the patient's thoughts and insomnia. JOB# [id number]
[2019-01-13] MEDS: Venelex 60gm Tube TP SCH (08:34)
[2019-01-13] MEDS: Eucerin Cream 16 oz Jar TP SCH ×2 (08:34→16:33)
--- NOTE | 2019-01-13 10:04 | Internal Medicine Prog Note ---
Internal Medicine Subjective - Subjective Patient is:: asleep Patient Complaints of:: other Per staff patient has:: no adverse event, no episodes of fall Internal Medicine Objective - Physical Exam Vitals and I&O: Vital Signs Temp 9.5 F 01/13/19 05:55 Pulse 86 01/13/19 05:55 Resp 19 01/13/19 05:55 BP 118/65 01/13/19 05:55 Pulse Ox 96 01/13/19 05:55 Intake & Output 01/12/19 01/13/19 01/13/19 18:59 06:59 18:59 Intake Total 1400 360 Output Total 2 Balance 1400 358 Intake: Oral 1400 360 Output: Urine/Stool Mix 2 Other: # Voids 4 2 # Bowel Movements 3 1 Active Medications: Current Medications Acetaminophen (Tylenol) 650 mg PO Q8H PRN PRN Reason: Mild Pain / Temp above 100 Stop: 03/12/19 03:48 [place] Oil/[place] Balsam/Trypsin (Venelex) 0 appl TP DAILY DANYELLE Stop: 03/13/19 08:59 Last Admin: 01/13/19 08:34 Dose: Not Given Lorazepam (Ativan) 0.5 mg PO Q4H PRN; Protocol PRN Reason: Anxiety Stop: 03/12/19 03:48 Multi-Ingredient Cream (Eucerin Cream) 1 appl TP BID DANYELLE Stop: 03/13/19 08:59 Last Admin: 01/13/19 08:34 Dose: Not Given Olanzapine (Zyprexa) 5 mg PO HS DANYELLE; Protocol Stop: 03/12/19 20:59 Last Admin: 01/12/19 21:55 Dose: Not Given Zolpidem Tartrate (Ambien) 5 mg PO HS PRN PRN Reason: Insomnia Stop: 03/12/19 03:48 General: demented, NAD HEENT: NC/AT Neck: Supple, No JVD Lungs: CTAB Cardiovascular: RRR Abdomen: soft, non-tender, non-distended Extremities: clear Neurological: no change Internal Medicine Assmt/Plan - Assessment Assessment: Increased agitation Acute psychosis Hx bipolar disorder - Plan Plan: Continue current treatment plan. Monitor Labs. Continue current medications Continue to monitor VS Monitor Diet/Nutritional support. Psych management per Psychiatry. Pain Management. PT/OT prn Safety precaution, Fall precaution, frequent nursing round. Supportive care. Continue collaborating with consulting specialists, case management and nursing team
--- NOTE | 2019-01-13 18:30 | Progress Notes ---
DATE: 01/13/2019 SUBJECTIVE: The patient was seen and evaluated. The patient's chart reviewed. This is Dr. Bazan covering for Dr. Min. Today on [id number] evaluation, the patient demands to be discharged to [place] and then gets really angry and then refuses interview. MENTAL STATUS EXAMINATION: Grandiose, manic. ASSESSMENT AND PLAN: An 83-year-old female, grandiosity symptoms continued to be assessed, believing that she is from [place], disorganized, tolerating Zyprexa with better sleep. JOB# [id number]
--- NOTE | 2019-01-14 09:53 | Internal Medicine Prog Note ---
Internal Medicine Subjective - Subjective Service Date: 01/14/19 Patient seen and examined:: with staff Patient is:: awake, verbal, interactive Patient Complaints of:: other Per staff patient has:: no adverse event, no episodes of fall Internal Medicine Objective - Physical Exam Vitals and I&O: Vital Signs Temp 98.4 F 01/14/19 05:54 Pulse 72 01/14/19 05:54 Resp 18 01/14/19 05:54 BP 135/89 01/14/19 05:54 Pulse Ox 98 01/14/19 05:54 Intake & Output 01/13/19 01/14/19 01/14/19 18:59 06:59 18:59 Intake Total 950 360 Output Total 1 Balance 950 359 Intake: Oral 950 360 Output: Urine/Stool Mix 1 Other: # Voids 5 2 # Bowel Movements 3 0 Active Medications: Current Medications Acetaminophen (Tylenol) 650 mg PO Q8H PRN PRN Reason: Mild Pain / Temp above 100 Stop: 03/12/19 03:48 [place] Oil/[place]ish Balsam/Trypsin (Venelex) 0 appl TP DAILY DANYELLE Stop: 03/13/19 08:59 Last Admin: 01/13/19 08:34 Dose: Not Given Lorazepam (Ativan) 0.5 mg PO Q4H PRN; Protocol PRN Reason: Anxiety Stop: 03/12/19 03:48 Multi-Ingredient Cream (Eucerin Cream) 1 appl TP BID DANYELLE Stop: 03/13/19 08:59 Last Admin: 01/13/19 16:33 Dose: Not Given Olanzapine (Zyprexa) 5 mg PO HS DANYELLE; Protocol Stop: 03/12/19 20:59 Last Admin: 01/13/19 20:39 Dose: 5 mg Zolpidem Tartrate (Ambien) 5 mg PO HS PRN PRN Reason: Insomnia Stop: 03/12/19 03:48 Physical Exam: Patient is demented, increased agitation. General: demented, NAD HEENT: NC/AT Neck: Supple, No JVD Lungs: CTAB Cardiovascular: RRR Abdomen: soft, non-tender, non-distended Extremities: clear Neurological: no change Internal Medicine Assmt/Plan - Assessment Assessment: Increased agitation. Acute Psychosis. History of Bipolar disorder. - Plan Plan: Continuation of care. Psych consult. Monitor vitals and labs, MRSA screening. Wound care prn. Continue present meds as directed. Monitor diet/nutritional support. Continue current treatment plan as ordered. Nutritional Asmnt/Malnutr-PDOC - Dietary Evaluation Malnutrition Findings (Please click <Entered> for more info): see orders.
[2019-01-14] MEDS: Eucerin Cream 16 oz Jar TP SCH ×2 (10:10→17:43)
[2019-01-14] MEDS: Venelex 60gm Tube TP SCH (16:26)
--- NOTE | 2019-01-15 02:07 | Progress Notes ---
DATE: 01/14/2019 SUBJECTIVE: The patient in the hospital, believing her food is being poisoned, throwing her food out of the porch. The patient minimizing all of her symptoms, stating that she feels "perfectly fine" that she is eating "a variety of food," mostly withdrawn, keeps to self, wanting to leave, stating that she is from [place], telling Dr. Bazan she is from [place]. The patient was hospitalized here in the past for similar symptoms. ASSESSMENT: Confused, disoriented. We are also trying to increase collateral. PLAN: We will continue dosing of Zyprexa. This is what helped her in the past. I will slowly titrate the dose. [facility]# [id number]
[2019-01-15] MEDS: Venelex 60gm Tube TP SCH (12:43)
[2019-01-15] MEDS: Eucerin Cream 16 oz Jar TP SCH ×2 (12:43→17:58)
--- NOTE | 2019-01-15 16:47 | Internal Medicine Prog Note ---
Internal Medicine Subjective - Subjective Service Date: 01/15/19 Patient is:: awake, verbal, interactive Patient Complaints of:: other Per staff patient has:: no adverse event, no episodes of fall Internal Medicine Objective - Physical Exam Vitals and I&O: Vital Signs Temp 97.3 F 01/15/19 13:56 Pulse 63 01/15/19 13:56 Resp 18 01/15/19 13:56 BP 133/75 01/15/19 13:56 Pulse Ox 95 01/15/19 13:56 Intake & Output 01/14/19 01/15/19 01/15/19 18:59 06:59 18:59 Intake Total 800 360 Output Total 1 Balance 800 359 Intake: Oral 800 360 Output: Urine/Stool Mix 1 Other: # Voids 3 1 # Bowel Movements 1 2 Active Medications: Current Medications Acetaminophen (Tylenol) 650 mg PO Q8H PRN PRN Reason: Mild Pain / Temp above 100 Stop: 03/12/19 03:48 [place] Oil/Citizen [place] Balsam/Trypsin (Venelex) 0 appl TP DAILY DANYELLE Stop: 03/13/19 08:59 Last Admin: 01/15/19 12:43 Dose: Not Given Lorazepam (Ativan) 0.5 mg PO Q4H PRN; Protocol PRN Reason: Anxiety Stop: 03/12/19 03:48 Multi-Ingredient Cream (Eucerin Cream) 1 appl TP BID DANYELLE Stop: 03/13/19 08:59 Last Admin: 01/15/19 12:43 Dose: Not Given Olanzapine 5 mg/ Olanzapine 2. (5 mg) 7.5 mg PO HS DANYELLE Stop: 03/15/19 20:59 Last Admin: 01/14/19 21:30 Dose: Not Given Zolpidem Tartrate (Ambien) 5 mg PO HS PRN PRN Reason: Insomnia Stop: 03/12/19 03:48 General: demented, NAD HEENT: NC/AT Neck: Supple, No JVD Lungs: CTAB Cardiovascular: RRR Abdomen: soft, non-tender, non-distended Extremities: clear Neurological: no change Internal Medicine Assmt/Plan - Assessment Assessment: Increased agitation Acute psychosis Hx bipolar disorder - Plan Plan: Continue current treatment plan. Monitor Labs. Continue current medications Continue to monitor VS Monitor Diet/Nutritional support. Psych management per Psychiatry. Pain Management. PT/OT prn Safety precaution, Fall precaution, frequent nursing round. Supportive care. Continue collaborating with consulting specialists, case management and nursing team Nutritional Asmnt/Malnutr-PDOC - Dietary Evaluation Malnutrition Findings (Please click <Entered> for more info): Nutritional Asmnt/Malnutrition Start: 01/15/19 13: 29 Text: Status: Complete Freq: Protocol: Document 01/15/19 13:29 MJ (Rec: 01/15/19 13:31 MJ [email or web address]) Nutritional Asmnt/Malnutrition Patient General Information Nutritional Screening Moderate Risk Diagnosis Psychosis Pertinent Medical Hx/Surgical Hx Bipolar Disorder Subjective Information Pt is an 83-year-old female admitted on 01/11 d/t increased agitation and psychotic behavior. Pt is eating an estimated 78% of meals x3 days (average) Per Meal/Nutrition Activity Record-adequate to meet nutritional needs. Pt has extremely dry and scaly APRIL extremities. Pt often refuses medication and cream. Provided nurse, Steph with Mt to support healing. Will monitor skin integrity. HT: 54 WT: 110 LB (50 kg) BMI: 18.88 (Normal) GI: WNL, Soft, Non-tender BM: 01/15 x2 I/O: 1160/1 (+1159) Skin: WNL, Dryness, Flaking, Pale Tristian: 13 Diet Order: Regular Estimated Energy Needs: ( Geriatric, CBW) 2778-0640 kcals (25-30 kcals/ kg) 50-60g Pro (1.0-1.2 g/kg) 7560-6611 ml (25-30 ml/kg) Pt is eating 78% of meals Per Meal/Nutrition Activity Record . Dietary is currently providing an estimated 1780 kcals and 140 gm Pro, per Pt PO intake this is providing an estimated 1390 kcals and 109gm Pro to meet 100% kcal and 100+% Pro needs- adequate. Current Diet Order/ Nutrition Support Regular Pertinent Medications No pertinent Medications Pertinent Labs No Labs to Report Nutritional Hx/Data Height 5 ft 4 in Height (Calculated Centimeters) 162.6 Current Weight (lbs) 110 lb Weight (Calculated Kilograms) 49.9 Weight (Calculated Grams) 05471.2 [place] Body Weight 120 LB (54.55 kg) % [place] Body Weight 92 Body Mass Index (BMI) 18.8 Recent Weight Change Yes GI Symptoms Last BM 01/15 x2 Skin Integrity/Comment: Skin: WNL, Dryness, Flaking, Pale Tristian: 13
[2019-01-16] MEDS: Eucerin Cream 16 oz Jar TP SCH ×2 (09:21→16:10)
[2019-01-16] MEDS: Venelex 60gm Tube TP SCH (09:21)
--- NOTE | 2019-01-16 14:46 | Internal Medicine Prog Note ---
Internal Medicine Subjective - Subjective Service Date: 01/16/19 Patient seen and examined:: with staff Patient is:: awake, verbal, interactive, agitated, confused Patient Complaints of:: other Per staff patient has:: no adverse event, no episodes of fall Internal Medicine Objective - Physical Exam Vitals and I&O: Vital Signs Temp 97.9 F 01/16/19 05:02 Pulse 72 01/16/19 05:02 Resp 20 01/16/19 08:00 BP 140/83 01/16/19 05:02 Pulse Ox 96 01/16/19 05:02 Intake & Output 01/15/19 01/16/19 01/16/19 18:59 06:59 18:59 Intake Total 480 Balance 480 Intake: Oral 480 Other: # Voids 3 2 # Bowel Movements 0 Active Medications: Current Medications Acetaminophen (Tylenol) 650 mg PO Q8H PRN PRN Reason: Mild Pain / Temp above 100 Stop: 03/12/19 03:48 [place] Oil/[place] Balsam/Trypsin (Venelex) 0 appl TP DAILY DANYELLE Stop: 03/13/19 08:59 Last Admin: 01/16/19 09:21 Dose: 1 appl Lorazepam (Ativan) 0.5 mg PO Q4H PRN; Protocol PRN Reason: Anxiety Stop: 03/12/19 03:48 Multi-Ingredient Cream (Eucerin Cream) 1 appl TP BID DANYELLE Stop: 03/13/19 08:59 Last Admin: 01/16/19 09:21 Dose: 1 appl Olanzapine 5 mg/ Olanzapine 2. (5 mg) 7.5 mg PO HS DANYELLE Stop: 03/15/19 20:59 Last Admin: 01/15/19 20:49 Dose: 7.5 mg Zolpidem Tartrate (Ambien) 5 mg PO HS PRN PRN Reason: Insomnia Stop: 03/12/19 03:48 Physical Exam: Patient is still demented, irritable and easily agitated. General: demented, NAD HEENT: NC/AT Neck: Supple, No JVD Lungs: CTAB Cardiovascular: RRR Abdomen: soft, non-tender, non-distended Extremities: clear Neurological: no change Internal Medicine Assmt/Plan - Assessment Assessment: Increased agitation. Acute Psychosis. History of Bipolar disorder. - Plan Plan: Continuation of care. Psych consult. Monitor vitals and labs, MRSA screening. Wound care prn. Continue present meds as directed. Monitor diet/nutritional support. Continue current treatment plan as ordered. Nutritional Asmnt/Malnutr-PDOC - Dietary Evaluation Malnutrition Findings (Please click <Entered> for more info): Nutritional Asmnt/Malnutrition Start: 01/15/19 13: 29 Text: Status: Complete Freq: Protocol: Document 01/15/19 13:29 MJ (Rec: 01/15/19 13:31 MJ [email or web address]) Nutritional Asmnt/Malnutrition Patient General Information Nutritional Screening Moderate Risk Diagnosis Psychosis Pertinent Medical Hx/Surgical Hx Bipolar Disorder Subjective Information Pt is an 83-year-old female admitted on 01/11 d/t increased agitation and psychotic behavior. Pt is eating an estimated 78% of meals x3 days (average) Per Meal/Nutrition Activity Record-adequate to meet nutritional needs. Pt has extremely dry and scaly APRIL extremities. Pt often refuses medication and cream. Provided nurse, Steph with Mt to support healing. Will monitor skin integrity. HT: 54 WT: 110 LB (50 kg) BMI: 18.88 (Normal) GI: WNL, Soft, Non-tender BM: 01/15 x2 I/O: 1160/1 (+1159) Skin: WNL, Dryness, Flaking, Pale Tristian: 13 Diet Order: Regular Estimated Energy Needs: ( Geriatric, CBW) 4676-9855 kcals (25-30 kcals/ kg) 50-60g Pro (1.0-1.2 g/kg) 3481-1545 ml (25-30 ml/kg) Pt is eating 78% of meals Per Meal/Nutrition Activity Record . Dietary is currently providing an estimated 1780 kcals and 140 gm Pro, per Pt PO intake this is providing an estimated 1390 kcals and 109gm Pro to meet 100% kcal and 100+% Pro needs- adequate. Current Diet Order/ Nutrition Support Regular Pertinent Medications No pertinent Medications Pertinent Labs No Labs to Report Nutritional Hx/Data Height 1.63 m Height (Calculated Centimeters) 162.6 Current Weight (lbs) 49.895 kg Weight (Calculated Kilograms) 49.9 Weight (Calculated Grams) 40414.2 [place] Body Weight 120 LB (54.55 kg) % [place] Body Weight 92 Body Mass Index (BMI) 18.8 Recent Weight Change Yes GI Symptoms Last BM 01/15 x2 Skin Integrity/Comment: Skin: WNL, Dryness, Flaking, Pale Tristian: 13
--- NOTE | 2019-01-16 19:14 | Progress Notes ---
DATE: 01/15/2019 SUBJECTIVE: The patient seen, chart reviewed, discussed with staff. The patient in the hospital, still unruly, paranoid, concerns about psychosis, believing her food is poisoned. Still believes that she is going to go home, but she is not going to go home. The cannot take care of her. She is in dire straits physically, fair sleep, fair appetite, mostly keeps to self, withdrawn. Medications were noted. ASSESSMENT: The patient ____, ongoing delusions, perceptual disturbances. PLAN: We will continue to monitor ongoing safety concerns. JOB# [id number]
[2019-01-17] MEDS: Eucerin Cream 16 oz Jar TP SCH ×2 (09:41→16:55)
[2019-01-17] MEDS: Venelex 60gm Tube TP SCH (09:41)
--- NOTE | 2019-01-17 14:29 | Progress Notes ---
DATE: 01/16/2019 The patient in the hospital. We are trying to find her a place to go. We are trying to find her a place on the [place], her was in [place], he cannot take care of her. The patient is convinced that she is going to go home. She is very confused, disoriented, starts yelling and ____ very upset, rambling, still paranoid about the food. Currently on dosing of Zyprexa. Ongoing concerns about her ability to stay safe at a lower level. She is very forgetful, isolative, poor ADLs. We will continue to monitor, continue to slowly titrate medications. JOB# [id number]
--- NOTE | 2019-01-17 14:59 | Internal Medicine Prog Note ---
Internal Medicine Subjective - Subjective Service Date: 01/17/19 Patient is:: awake, verbal, interactive, agitated, confused Patient Complaints of:: other Per staff patient has:: no adverse event, no episodes of fall Internal Medicine Objective - Physical Exam Vitals and I&O: Vital Signs Temp 97.0 F 01/17/19 14:00 Pulse 66 01/17/19 14:00 Resp 20 01/17/19 14:00 BP 139/58 01/17/19 14:00 Pulse Ox 98 01/17/19 14:00 Intake & Output 01/16/19 01/17/19 01/17/19 18:59 06:59 18:59 Intake Total 900 120 Balance 900 120 Intake: Oral 900 120 Other: # Voids 3 3 # Bowel Movements 1 1 Active Medications: Current Medications Acetaminophen (Tylenol) 650 mg PO Q8H PRN PRN Reason: Mild Pain / Temp above 100 Stop: 03/12/19 03:48 [place] Oil/[place] Balsam/Trypsin (Venelex) 0 appl TP DAILY DANYELLE Stop: 03/13/19 08:59 Last Admin: 01/17/19 09:41 Dose: 1 appl Lorazepam (Ativan) 0.5 mg PO Q4H PRN; Protocol PRN Reason: Anxiety Stop: 03/12/19 03:48 Multi-Ingredient Cream (Eucerin Cream) 1 appl TP BID DANYELLE Stop: 03/13/19 08:59 Last Admin: 01/17/19 09:41 Dose: 1 appl Olanzapine 5 mg/ Olanzapine 2. (5 mg) 7.5 mg PO HS DANYELLE Stop: 03/15/19 20:59 Last Admin: 01/16/19 20:56 Dose: 7.5 mg Zolpidem Tartrate (Ambien) 5 mg PO HS PRN PRN Reason: Insomnia Stop: 03/12/19 03:48 General: demented, NAD HEENT: NC/AT Neck: Supple, No JVD Lungs: CTAB Cardiovascular: RRR Abdomen: soft, non-tender, non-distended Extremities: clear Neurological: no change Internal Medicine Assmt/Plan - Assessment Assessment: Increased agitation Acute psychosis Hx bipolar disorder - Plan Plan: Continue current treatment plan. Monitor Labs. Continue current medications Continue to monitor VS Monitor Diet/Nutritional support. Psych management per Psychiatry. Pain Management. PT/OT prn Safety precaution, Fall precaution, frequent nursing round. Supportive care. Continue collaborating with consulting specialists, case management and nursing team Nutritional Asmnt/Malnutr-PDOC - Dietary Evaluation Malnutrition Findings (Please click <Entered> for more info): Nutritional Asmnt/Malnutrition Start: 01/15/19 13: 29 Text: Status: Complete Freq: Protocol: Document 01/15/19 13:29 MJ (Rec: 01/15/19 13:31 MJ [email or web address]) Nutritional Asmnt/Malnutrition Patient General Information Nutritional Screening Moderate Risk Diagnosis Psychosis Pertinent Medical Hx/Surgical Hx Bipolar Disorder Subjective Information Pt is an 83-year-old female admitted on 01/11 d/t increased agitation and psychotic behavior. Pt is eating an estimated 78% of meals x3 days (average) Per Meal/Nutrition Activity Record-adequate to meet nutritional needs. Pt has extremely dry and scaly APRIL extremities. Pt often refuses medication and cream. Provided nurse, Steph with Mt to support healing. Will monitor skin integrity. HT: 54 WT: 110 LB (50 kg) BMI: 18.88 (Normal) GI: WNL, Soft, Non-tender BM: 01/15 x2 I/O: 1160/1 (+1159) Skin: WNL, Dryness, Flaking, Pale Tristian: 13 Diet Order: Regular Estimated Energy Needs: ( Geriatric, CBW) 5386-6192 kcals (25-30 kcals/ kg) 50-60g Pro (1.0-1.2 g/kg) 5331-1555 ml (25-30 ml/kg) Pt is eating 78% of meals Per Meal/Nutrition Activity Record . Dietary is currently providing an estimated 1780 kcals and 140 gm Pro, per Pt PO intake this is providing an estimated 1390 kcals and 109gm Pro to meet 100% kcal and 100+% Pro needs- adequate. Current Diet Order/ Nutrition Support Regular Pertinent Medications No pertinent Medications Pertinent Labs No Labs to Report Nutritional Hx/Data Height 5 ft 4 in Height (Calculated Centimeters) 162.6 Current Weight (lbs) 110 lb Weight (Calculated Kilograms) 49.9 Weight (Calculated Grams) 15119.2 [place] Body Weight 120 LB (54.55 kg) % [place] Body Weight 92 Body Mass Index (BMI) 18.8 Recent Weight Change Yes GI Symptoms Last BM 01/15 x2 Skin Integrity/Comment: Skin: WNL, Dryness, Flaking, Pale Tristian: 13
--- NOTE | 2019-01-18 00:45 | Progress Notes ---
DATE: 01/17/2019 SUBJECTIVE: The patient is currently in the hospital, has nowhere to go right now. The patient had been refusing medications, urinating on the floor at home, paranoid, refusing food, throwing out food. cannot really take care of her. We are trying to find her a place to go. The patient is confused, disoriented, still believes that she can go home, very confused, wants to be called [facility]." Mostly withdrawn, keeps to self, ongoing concerns about delusions, psychotic symptoms. We will continue to monitor. The patient does not want to talk to me today, refusing to talk to me, sleeping, but arousable. Vitals were noted. JOB# [id number]
[2019-01-18] MEDS: Eucerin Cream 16 oz Jar TP SCH ×2 (08:13→16:48)
[2019-01-18] MEDS: Venelex 60gm Tube TP SCH (08:13)
--- NOTE | 2019-01-18 10:49 | Internal Medicine Prog Note ---
Internal Medicine Subjective - Subjective Service Date: 01/18/19 Patient seen and examined:: with staff Patient is:: awake, verbal, interactive, agitated, confused Patient Complaints of:: other Per staff patient has:: no adverse event, no episodes of fall Internal Medicine Objective - Physical Exam Vitals and I&O: Vital Signs Temp 96.7 F 01/17/19 20:00 Pulse 73 01/17/19 20:00 Resp 18 01/17/19 20:00 BP 141/65 01/17/19 20:00 Pulse Ox 96 01/17/19 20:00 Intake & Output 01/17/19 01/18/19 01/18/19 18:59 06:59 18:59 Intake Total 1150 Balance 1150 Intake: Oral 1150 Other: # Bowel Movements 1 Active Medications: Current Medications Acetaminophen (Tylenol) 650 mg PO Q8H PRN PRN Reason: Mild Pain / Temp above 100 Stop: 03/12/19 03:48 [place] Oil/[place] Balsam/Trypsin (Venelex) 0 appl TP DAILY DANYELLE Stop: 03/13/19 08:59 Last Admin: 01/18/19 08:13 Dose: Not Given Lorazepam (Ativan) 0.5 mg PO Q4H PRN; Protocol PRN Reason: Anxiety Stop: 03/12/19 03:48 Multi-Ingredient Cream (Eucerin Cream) 1 appl TP BID DANYELLE Stop: 03/13/19 08:59 Last Admin: 01/18/19 08:13 Dose: Not Given Olanzapine 5 mg/ Olanzapine 2. (5 mg) 7.5 mg PO HS DANYELLE Stop: 03/15/19 20:59 Last Admin: 01/17/19 21:47 Dose: Not Given Zolpidem Tartrate (Ambien) 5 mg PO HS PRN PRN Reason: Insomnia Stop: 03/12/19 03:48 Physical Exam: Patient is very dis-oriented, withdrawn, hallucinating, with psychotic symptoms. General: demented, NAD HEENT: NC/AT Neck: Supple, No JVD Lungs: CTAB Cardiovascular: RRR Abdomen: soft, non-tender, non-distended Extremities: clear Neurological: no change Internal Medicine Assmt/Plan - Assessment Assessment: Increased agitation. Acute Psychosis. History of Bipolar disorder. - Plan Plan: Continuation of care. Psych consult. Monitor vitals and labs, MRSA screening. Wound care prn. Continue present meds as directed. Monitor diet/nutritional support. Continue present care management. Nutritional Asmnt/Malnutr-PDOC - Dietary Evaluation Malnutrition Findings (Please click <Entered> for more info): Nutritional Asmnt/Malnutrition Start: 01/15/19 13: 29 Text: Status: Complete Freq: Protocol: Document 01/15/19 13:29 MJ (Rec: 01/15/19 13:31 MJ [email or web address]) Nutritional Asmnt/Malnutrition Patient General Information Nutritional Screening Moderate Risk Diagnosis Psychosis Pertinent Medical Hx/Surgical Hx Bipolar Disorder Subjective Information Pt is an 83-year-old female admitted on 01/11 d/t increased agitation and psychotic behavior. Pt is eating an estimated 78% of meals x3 days (average) Per Meal/Nutrition Activity Record-adequate to meet nutritional needs. Pt has extremely dry and scaly APRIL extremities. Pt often refuses medication and cream. Provided nurse, Steph with Mt to support healing. Will monitor skin integrity. HT: 54 WT: 110 LB (50 kg) BMI: 18.88 (Normal) GI: WNL, Soft, Non-tender BM: 01/15 x2 I/O: 1160/1 (+1159) Skin: WNL, Dryness, Flaking, Pale [place]ist[place]: 13 Diet Order: Regular Estimated Energy Needs: ( Geriatric, CBW) 9893-2766 kcals (25-30 kcals/ kg) 50-60g Pro (1.0-1.2 g/kg) 5117-5793 ml (25-30 ml/kg) Pt is eating 78% of meals Per Meal/Nutrition Activity Record . Dietary is currently providing an estimated 1780 kcals and 140 gm Pro, per Pt PO intake this is providing an estimated 1390 kcals and 109gm Pro to meet 100% kcal and 100+% Pro needs- adequate. Current Diet Order/ Nutrition Support Regular Pertinent Medications No pertinent Medications Pertinent Labs No Labs to Report Nutritional Hx/Data Height 1.63 m Height (Calculated Centimeters) 162.6 Current Weight (lbs) 49.895 kg Weight (Calculated Kilograms) 49.9 Weight (Calculated Grams) 30100.2 [place] Body Weight 120 LB (54.55 kg) % [place] Body Weight 92 Body Mass Index (BMI) 18.8 Recent Weight Change Yes GI Symptoms Last BM 01/15 x2 Skin Integrity/Comment: Skin: WNL, Dryness, Flaking, Pale Tristian: 13
--- NOTE | 2019-01-19 00:44 | Progress Notes ---
DATE: 01/18/2019 SUBJECTIVE: The patient is in the hospital. Is generally calmer, is still delusional, paranoid; states her mom is going to kill Mariel esqueda, that her name is Mariel Esqueda; sometimes feeling that food is being poisoned, but these thoughts are less. She is mostly withdrawn, keeping to self. MEDICATIONS: Reviewed. Currently on dosing of Zyprexa. Medications were noted. Vitals were also reviewed. PLAN: We are trying to find her a place to go. cannot take care of her. We will continue inpatient monitoring. JOB# [id number]
--- NOTE | 2019-01-19 07:14 | Progress Notes ---
DATE: 01/19/2019 SUBJECTIVE: The patient was seen in her room. The patient is asleep, but easily arousable. The patient still appears to be guarded, easily gets frustrated with ongoing paranoia and delusions, appears to be withdrawn and isolative. Otherwise, the patient appears to be in no acute distress. OBJECTIVE: VITAL SIGNS: Temperature 97.8, heart rate of 85, blood pressure 145/65, respirations 19, 97% on room air. HEENT: Head is atraumatic and normocephalic. Eyes: Bilateral conjunctivae are clear. Bilateral pupils are equally round and reactive. NECK: Supple. No JVD. CARDIOVASCULAR: S1 and S2, without murmur. PULMONARY: Clear to auscultation. GASTROINTESTINAL: Soft and nontender without guarding. Positive bowel sounds. MUSCULOSKELETAL: No clubbing. No cyanosis noted. ASSESSMENT: 1. Delusional disorder. 2. History of bipolar. PLAN: The patient is pending for discharge currently for placement issue. We will continue to monitor the patient's condition and progress. We will follow up with a psychiatrist to monitor her condition. Treatment plans were discussed with the patient's nurse. Treatment plans were discussed with Dr. Lindsey. JOB# [id number]
[2019-01-19] MEDS: Eucerin Cream 16 oz Jar TP SCH ×2 (08:26→17:54)
[2019-01-19] MEDS: Venelex 60gm Tube TP SCH (08:26)
--- NOTE | 2019-01-19 22:35 | Progress Notes ---
DATE: 01/19/2019 Dr. Min covering for Dr. Bazan. SUBJECTIVE: Chart reviewed and the patient interviewed. Also discussed the patient's condition with the staff and reviewed records and labs. The patient is still confused and she is actively responding to stimuli. The patient also is still easily irritable and easily agitated. The patient also suspicious and paranoid. She also thinks that her mom is going to kill "Mariel Alegre". Disorganized thoughts and actively responding. The patient also is uncooperative and the patient is still refusing to take Zyprexa at bedtime. The patient said "I don't take medicine at night." ASSESSMENT: The patient is still agitated and psychotic. TREATMENT PLAN: We will continue monitoring her behavior closely. Also, we will change Zyprexa to be given in a dose of 7.5 mg during the day rather than at bedtime. Hopefully, the patient will be more compliant with taking it. Also, we will continue to monitor her mood. [facility]# [id number]
[2019-01-20] MEDS: Eucerin Cream 16 oz Jar TP SCH (10:48)
[2019-01-20] MEDS: Venelex 60gm Tube TP SCH (10:48)
--- NOTE | 2019-01-20 14:16 | Internal Medicine Prog Note ---
Internal Medicine Subjective - Subjective Service Date: 01/20/19 Patient seen and examined:: with staff Patient is:: awake, verbal, interactive, agitated, confused Patient Complaints of:: other Per staff patient has:: no adverse event, no episodes of fall Internal Medicine Objective - Physical Exam Vitals and I&O: Vital Signs Temp 97.1 F 01/20/19 06:17 Pulse 77 01/20/19 06:17 Resp 19 01/20/19 06:17 BP 118/61 01/20/19 06:17 Pulse Ox 97 01/20/19 06:17 Intake & Output 01/19/19 01/20/19 01/20/19 18:59 06:59 18:59 Intake Total 1400 300 Balance 1400 300 Intake: Oral 1400 300 Other: # Voids 3 3 # Bowel Movements 0 Active Medications: Current Medications Acetaminophen (Tylenol) 650 mg PO Q8H PRN PRN Reason: Mild Pain / Temp above 100 Stop: 03/12/19 03:48 [place] Oil/[place] Balsam/Trypsin (Venelex) 0 appl TP DAILY DANYELLE Stop: 03/13/19 08:59 Last Admin: 01/20/19 10:48 Dose: Not Given Lorazepam (Ativan) 0.5 mg PO Q4H PRN; Protocol PRN Reason: Anxiety Stop: 03/12/19 03:48 Last Admin: 01/20/19 09:00 Dose: 0.5 mg Multi-Ingredient Cream (Eucerin Cream) 1 appl TP BID DANYELLE Stop: 03/13/19 08:59 Last Admin: 01/20/19 10:48 Dose: Not Given Olanzapine 5 mg/ Olanzapine 2. (5 mg) 7.5 mg PO DAILY DANYELLE Stop: 03/20/19 08:59 Last Admin: 01/20/19 09:00 Dose: 7.5 mg Zolpidem Tartrate (Ambien) 5 mg PO HS PRN PRN Reason: Insomnia Stop: 03/12/19 03:48 Physical Exam: Patient remains very confused, uncooperative, irritable and agitated. General: demented, NAD HEENT: NC/AT Neck: Supple, No JVD Lungs: CTAB Cardiovascular: RRR Abdomen: soft, non-tender, non-distended Extremities: clear Neurological: no change Internal Medicine Assmt/Plan - Assessment Assessment: Increased agitation. Acute Psychosis. History of Bipolar disorder. - Plan Plan: Continuation of care. Psych management per Psych. Wound care prn. Continue present meds as directed. Monitor diet/nutritional support. Continue present care management. Nutritional Asmnt/Malnutr-PDOC - Dietary Evaluation Malnutrition Findings (Please click <Entered> for more info): Nutritional Asmnt/Malnutrition Start: 01/15/19 13: 29 Text: Status: Complete Freq: Protocol: Document 01/15/19 13:29 MJ (Rec: 01/15/19 13:31 MJ [email or web address]) Nutritional Asmnt/Malnutrition Patient General Information Nutritional Screening Moderate Risk Diagnosis Psychosis Pertinent Medical Hx/Surgical Hx Bipolar Disorder Subjective Information Pt is an 83-year-old female admitted on 01/11 d/t increased agitation and psychotic behavior. Pt is eating an estimated 78% of meals x3 days (average) Per Meal/Nutrition Activity Record-adequate to meet nutritional needs. Pt has extremely dry and scaly APRIL extremities. Pt often refuses medication and cream. Provided nurseSteph with Mt to support healing. Will monitor skin integrity. HT: 54 WT: 110 LB (50 kg) BMI: 18.88 (Normal) GI: WNL, Soft, Non-tender BM: 01/15 x2 I/O: 1160/1 (+1159) Skin: WNL, Dryness, Flaking, Pale Tristian: 13 Diet Order: Regular Estimated Energy Needs: ( Geriatric, CBW) 7379-5571 kcals (25-30 kcals/ kg) 50-60g Pro (1.0-1.2 g/kg) 1805-0225 ml (25-30 ml/kg) Pt is eating 78% of meals Per Meal/Nutrition Activity Record . Dietary is currently providing an estimated 1780 kcals and 140 gm Pro, per Pt PO intake this is providing an estimated 1390 kcals and 109gm Pro to meet 100% kcal and 100+% Pro needs- adequate. Current Diet Order/ Nutrition Support Regular Pertinent Medications No pertinent Medications Pertinent Labs No Labs to Report Nutritional Hx/Data Height 1.63 m Height (Calculated Centimeters) 162.6 Current Weight (lbs) 49.895 kg Weight (Calculated Kilograms) 49.9 Weight (Calculated Grams) 82667.2 [place] Body Weight 120 LB (54.55 kg) % [place] Body Weight 92 Body Mass Index (BMI) 18.8 Recent Weight Change Yes GI Symptoms Last BM 01/15 x2 Skin Integrity/Comment: Skin: WNL, Dryness, Flaking, Pale Tristian: 13
--- NOTE | 2019-01-20 17:20 | Internal Medicine Prog Note ---
Internal Medicine Subjective - Subjective Patient is:: awake, verbal, interactive, agitated, confused Patient Complaints of:: other (patient left her feces all over her room.) Per staff patient has:: no adverse event, no episodes of fall Internal Medicine Objective - Physical Exam Vitals and I&O: Vital Signs Temp 97.4 F 01/20/19 14:00 Pulse 72 01/20/19 14:00 Resp 18 01/20/19 14:00 BP 125/65 01/20/19 14:00 Pulse Ox 97 01/20/19 14:00 Intake & Output 01/19/19 01/20/19 01/20/19 18:59 06:59 18:59 Intake Total 1400 300 Balance 1400 300 Intake: Oral 1400 300 Other: # Voids 3 3 # Bowel Movements 0 Active Medications: Current Medications Acetaminophen (Tylenol) 650 mg PO Q8H PRN PRN Reason: Mild Pain / Temp above 100 Stop: 03/12/19 03:48 [place] Oil/[place]orese Balsam/Trypsin (Venelex) 0 appl TP DAILY DANYELLE Stop: 03/13/19 08:59 Last Admin: 01/20/19 10:48 Dose: Not Given Lorazepam (Ativan) 0.5 mg PO Q4H PRN; Protocol PRN Reason: Anxiety Stop: 03/12/19 03:48 Last Admin: 01/20/19 09:00 Dose: 0.5 mg Multi-Ingredient Cream (Eucerin Cream) 1 appl TP BID DANYELLE Stop: 03/13/19 08:59 Last Admin: 01/20/19 10:48 Dose: Not Given Olanzapine 5 mg/ Olanzapine 2. (5 mg) 7.5 mg PO DAILY DANYELLE Stop: 03/20/19 08:59 Last Admin: 01/20/19 09:00 Dose: 7.5 mg Zolpidem Tartrate (Ambien) 5 mg PO HS PRN PRN Reason: Insomnia Stop: 03/12/19 03:48 General: demented, NAD HEENT: NC/AT Neck: Supple, No JVD Lungs: CTAB Cardiovascular: RRR Abdomen: soft, non-tender, non-distended Extremities: clear Neurological: no change Internal Medicine Assmt/Plan - Assessment Assessment: Increased agitation Acute psychosis Hx bipolar disorder - Plan Plan: Continue current treatment plan. Monitor Labs. Continue current medications Continue to monitor VS Monitor Diet/Nutritional support. Psych management per Psychiatry. Pain Management. PT/OT prn Safety precaution, Fall precaution, frequent nursing round. Supportive care. Continue collaborating with consulting specialists, case management and nursing team Nutritional Asmnt/Malnutr-PDOC - Dietary Evaluation Malnutrition Findings (Please click <Entered> for more info): Nutritional Asmnt/Malnutrition Start: 01/15/19 13: 29 Text: Status: Complete Freq: Protocol: Document 01/15/19 13:29 IZZYERINBASIL (Rec: 01/15/19 13:31 IZZYERINBASIL [email or web address]) Nutritional Asmnt/Malnutrition Patient General Information Nutritional Screening Moderate Risk Diagnosis Psychosis Pertinent Medical Hx/Surgical Hx Bipolar Disorder Subjective Information Pt is an 83-year-old female admitted on 01/11 d/t increased agitation and psychotic behavior. Pt is eating an estimated 78% of meals x3 days (average) Per Meal/Nutrition Activity Record-adequate to meet nutritional needs. Pt has extremely dry and scaly APRIL extremities. Pt often refuses medication and cream. Provided nurseSteph with Mt to support healing. Will monitor skin integrity. HT: 54 WT: 110 LB (50 kg) BMI: 18.88 (Normal) GI: WNL, Soft, Non-tender BM: 01/15 x2 I/O: 1160/1 (+1159) Skin: WNL, Dryness, Flaking, Pale Tristian: 13 Diet Order: Regular Estimated Energy Needs: ( Geriatric, CBW) 9835-6390 kcals (25-30 kcals/ kg) 50-60g Pro (1.0-1.2 g/kg) 3802-8427 ml (25-30 ml/kg) Pt is eating 78% of meals Per Meal/Nutrition Activity Record . Dietary is currently providing an estimated 1780 kcals and 140 gm Pro, per Pt PO intake this is providing an estimated 1390 kcals and 109gm Pro to meet 100% kcal and 100+% Pro needs- adequate. Current Diet Order/ Nutrition Support Regular Pertinent Medications No pertinent Medications Pertinent Labs No Labs to Report Nutritional Hx/Data Height 5 ft 4 in Height (Calculated Centimeters) 162.6 Current Weight (lbs) 110 lb Weight (Calculated Kilograms) 49.9 Weight (Calculated Grams) 02762.2 [place] Body Weight 120 LB (54.55 kg) % [place] Body Weight 92 Body Mass Index (BMI) 18.8 Recent Weight Change Yes GI Symptoms Last BM 01/15 x2 Skin Integrity/Comment: Skin: WNL, Dryness, Flaking, Pale Tristian: 13
--- NOTE | 2019-01-21 08:03 | Progress Notes ---
DATE: SUBJECTIVE: Chart reviewed and the patient interviewed. Also discussed the patient's condition with the staff and reviewed records and labs. The patient continued to be confused and restless and in angry and irritable mood. The patient also is still suspicious and is paranoid and also needs lots of redirections. Otherwise, the patient seems to be slightly calmer than the day before. ASSESSMENT: The patient is still psychotic and confused. TREATMENT PLAN: Continue monitoring her behavior and continue working on her compliance with taking her medications and followup. [facility]# [id number]
[2019-01-21] MEDS: Eucerin Cream 16 oz Jar TP SCH ×2 (09:20→17:24)
[2019-01-21] MEDS: Venelex 60gm Tube TP SCH (09:20)
--- NOTE | 2019-01-21 10:50 | Internal Medicine Prog Note ---
Internal Medicine Subjective - Subjective Service Date: 01/21/19 Patient is:: awake, verbal, interactive, agitated, confused Patient Complaints of:: other (patient left her feces all over her room.) Per staff patient has:: no adverse event, no episodes of fall Internal Medicine Objective - Physical Exam Vitals and I&O: Vital Signs Temp 97.4 F 01/21/19 06:16 Pulse 68 01/21/19 06:16 Resp 18 01/21/19 06:16 BP 138/73 01/21/19 06:16 Pulse Ox 93 01/21/19 06:16 Intake & Output 01/20/19 01/21/19 01/21/19 18:59 06:59 18:59 Intake Total 1150 240 Balance 1150 240 Intake: Oral 1150 240 Other: # Voids 2 # Bowel Movements 2 0 Active Medications: Current Medications Acetaminophen (Tylenol) 650 mg PO Q8H PRN PRN Reason: Mild Pain / Temp above 100 Stop: 03/12/19 03:48 [place] Oil/[place]gentine Balsam/Trypsin (Venelex) 0 appl TP DAILY DANYELLE Stop: 03/13/19 08:59 Last Admin: 01/21/19 09:20 Dose: Not Given Lorazepam (Ativan) 0.5 mg PO Q4H PRN; Protocol PRN Reason: Anxiety Stop: 03/12/19 03:48 Last Admin: 01/20/19 23:32 Dose: 0.5 mg Multi-Ingredient Cream (Eucerin Cream) 1 appl TP BID DANYELLE Stop: 03/13/19 08:59 Last Admin: 01/21/19 09:20 Dose: Not Given Olanzapine 5 mg/ Olanzapine 2. (5 mg) 7.5 mg PO DAILY DANYELLE Stop: 03/20/19 08:59 Last Admin: 01/21/19 09:20 Dose: Not Given Zolpidem Tartrate (Ambien) 5 mg PO HS PRN PRN Reason: Insomnia Stop: 03/12/19 03:48 Last Admin: 01/20/19 21:35 Dose: 5 mg Physical Exam: Patient is confused, remains angry, restless and psychotic. General: demented, NAD HEENT: NC/AT Neck: Supple, No JVD Lungs: CTAB Cardiovascular: RRR Abdomen: soft, non-tender, non-distended Extremities: clear Neurological: no change Internal Medicine Assmt/Plan - Assessment Assessment: Increased agitation. Acute Psychosis. History of Bipolar disorder. - Plan Plan: Continuation of care. Psych management per Psych. Wound care prn. Continue present meds as directed. Monitor diet/nutritional support. Continue present care management. Nutritional Asmnt/Malnutr-PDOC - Dietary Evaluation Malnutrition Findings (Please click <Entered> for more info): Nutritional Asmnt/Malnutrition Start: 01/15/19 13: 29 Text: Status: Complete Freq: Protocol: Document 01/15/19 13:29 VIKTORIYABASIL (Rec: 01/15/19 13:31 MJ [email or web address]) Nutritional Asmnt/Malnutrition Patient General Information Nutritional Screening Moderate Risk Diagnosis Psychosis Pertinent Medical Hx/Surgical Hx Bipolar Disorder Subjective Information Pt is an 83-year-old female admitted on 01/11 d/t increased agitation and psychotic behavior. Pt is eating an estimated 78% of meals x3 days (average) Per Meal/Nutrition Activity Record-adequate to meet nutritional needs. Pt has extremely dry and scaly ARPIL extremities. Pt often refuses medication and cream. Provided nurseSteph with Mt to support healing. Will monitor skin integrity. HT: 54 WT: 110 LB (50 kg) BMI: 18.88 (Normal) GI: WNL, Soft, Non-tender BM: 01/15 x2 I/O: 1160/1 (+1159) Skin: WNL, Dryness, Flaking, Pale Tristian: 13 Diet Order: Regular Estimated Energy Needs: ( Geriatric, CBW) 2422-6848 kcals (25-30 kcals/ kg) 50-60g Pro (1.0-1.2 g/kg) 0097-8593 ml (25-30 ml/kg) Pt is eating 78% of meals Per Meal/Nutrition Activity Record . Dietary is currently providing an estimated 1780 kcals and 140 gm Pro, per Pt PO intake this is providing an estimated 1390 kcals and 109gm Pro to meet 100% kcal and 100+% Pro needs- adequate. Current Diet Order/ Nutrition Support Regular Pertinent Medications No pertinent Medications Pertinent Labs No Labs to Report Nutritional Hx/Data Height 1.63 m Height (Calculated Centimeters) 162.6 Current Weight (lbs) 49.895 kg Weight (Calculated Kilograms) 49.9 Weight (Calculated Grams) 44607.2 [place] Body Weight 120 LB (54.55 kg) % [place] Body Weight 92 Body Mass Index (BMI) 18.8 Recent Weight Change Yes GI Symptoms Last BM 01/15 x2 Skin Integrity/Comment: Skin: WNL, Dryness, Flaking, Pale Tristian: 13
--- NOTE | 2019-01-21 21:01 | Progress Notes ---
DATE: 01/21/2019 Case was discussed with staff of the patient, reviewed treatment plans and goals and medication list and labs. The patient is covering for Dr. Kelly. This is an 83-year-old female who was admitted on 01/11/2019. The patient was brought back on the hold believing food was being poisoned, so would not get out of the portion of the house. The patient states she does not know why she is here. She felt food is being poisoned, stating that she is not feeling well. She knows the year, the month. She knows where she is. She has no idea why she is here. The patient states feeling frightened. The patient continues to be confused, responding to internal stimuli, easily agitated, irritable, suspicious, paranoid, believes that food is being poisoned. The patient reports that her mom is going to call, Mariel Alegre. Very disorganized, uncooperative, refusing to take Zyprexa at bedtime. Dr. Min changed her Zyprexa to during the day. The patient had no side effects from the medication, no sedation, no nausea, no extrapyramidal symptoms. No lab work is available in the records. We will continue outpatient group therapy, milieu therapy, and adjust medication as needed. JOB# [id number]
[2019-01-22] MEDS: Venelex 60gm Tube TP SCH (09:15)
[2019-01-22] MEDS: Eucerin Cream 16 oz Jar TP SCH (09:15)
--- NOTE | 2019-01-22 14:43 | Internal Medicine Prog Note ---
Internal Medicine Subjective - Subjective Service Date: 01/22/19 Patient seen and examined:: with staff Patient is:: awake, verbal, interactive, agitated, confused Patient Complaints of:: other (patient left her feces all over her room.) Per staff patient has:: no adverse event, no episodes of fall Internal Medicine Objective - Physical Exam Vitals and I&O: Vital Signs Temp 96.8 F 01/22/19 06:36 Pulse 71 01/22/19 06:36 Resp 20 01/22/19 06:36 BP 120/57 01/22/19 06:36 Pulse Ox 96 01/22/19 06:36 Intake & Output 01/21/19 01/22/19 01/22/19 18:59 06:59 18:59 Intake Total 960 300 Balance 960 300 Intake: Oral 960 300 Other: # Voids 4 3 # Bowel Movements 1 0 Active Medications: Current Medications Acetaminophen (Tylenol) 650 mg PO Q8H PRN PRN Reason: Mild Pain / Temp above 100 Stop: 03/12/19 03:48 [place] Oil/[place]raini Balsam/Trypsin (Venelex) 0 appl TP DAILY DANYELLE Stop: 03/13/19 08:59 Last Admin: 01/22/19 09:15 Dose: Not Given Lorazepam (Ativan) 0.5 mg PO Q4H PRN; Protocol PRN Reason: Anxiety Stop: 03/12/19 03:48 Last Admin: 01/20/19 23:32 Dose: 0.5 mg Multi-Ingredient Cream (Eucerin Cream) 1 appl TP BID DANYELLE Stop: 03/13/19 08:59 Last Admin: 01/22/19 09:15 Dose: Not Given Olanzapine 5 mg/ Olanzapine 2. (5 mg) 7.5 mg PO DAILY DANYELLE Stop: 03/20/19 08:59 Last Admin: 01/22/19 09:15 Dose: Not Given Zolpidem Tartrate (Ambien) 5 mg PO HS PRN PRN Reason: Insomnia Stop: 03/12/19 03:48 Last Admin: 01/20/19 21:35 Dose: 5 mg Physical Exam: Patient is very psychotic, believes she is being poisoned. General: demented, NAD HEENT: NC/AT Neck: Supple, No JVD Lungs: CTAB Cardiovascular: RRR Abdomen: soft, non-tender, non-distended Extremities: clear Neurological: no change Internal Medicine Assmt/Plan - Assessment Assessment: Increased agitation. Acute Psychosis. History of Bipolar disorder. - Plan Plan: Continuation of care. Psych management per Psych. Wound care prn. Continue present meds as directed. Monitor diet/nutritional support. Continue present care management. Nutritional Asmnt/Malnutr-PDOC - Dietary Evaluation Malnutrition Findings (Please click <Entered> for more info): Nutritional Asmnt/Malnutrition Start: 01/15/19 13: 29 Text: Status: Complete Freq: Protocol: Document 01/15/19 13:29 VIKTORIYABASIL (Rec: 01/15/19 13:31 IZZYERINBASIL [email or web address]) Nutritional Asmnt/Malnutrition Patient General Information Nutritional Screening Moderate Risk Diagnosis Psychosis Pertinent Medical Hx/Surgical Hx Bipolar Disorder Subjective Information Pt is an 83-year-old female admitted on 01/11 d/t increased agitation and psychotic behavior. Pt is eating an estimated 78% of meals x3 days (average) Per Meal/Nutrition Activity Record-adequate to meet nutritional needs. Pt has extremely dry and scaly APRIL extremities. Pt often refuses medication and cream. Provided nurseSteph with Mt to support healing. Will monitor skin integrity. HT: 54 WT: 110 LB (50 kg) BMI: 18.88 (Normal) GI: WNL, Soft, Non-tender BM: 01/15 x2 I/O: 1160/1 (+1159) Skin: WNL, Dryness, Flaking, Pale Tristian: 13 Diet Order: Regular Estimated Energy Needs: ( Geriatric, CBW) 7337-2900 kcals (25-30 kcals/ kg) 50-60g Pro (1.0-1.2 g/kg) 1244-9783 ml (25-30 ml/kg) Pt is eating 78% of meals Per Meal/Nutrition Activity Record . Dietary is currently providing an estimated 1780 kcals and 140 gm Pro, per Pt PO intake this is providing an estimated 1390 kcals and 109gm Pro to meet 100% kcal and 100+% Pro needs- adequate. Current Diet Order/ Nutrition Support Regular Pertinent Medications No pertinent Medications Pertinent Labs No Labs to Report Nutritional Hx/Data Height 1.63 m Height (Calculated Centimeters) 162.6 Current Weight (lbs) 49.895 kg Weight (Calculated Kilograms) 49.9 Weight (Calculated Grams) 92400.2 [place] Body Weight 120 LB (54.55 kg) % [place] Body Weight 92 Body Mass Index (BMI) 18.8 Recent Weight Change Yes GI Symptoms Last BM 01/15 x2 Skin Integrity/Comment: Skin: WNL, Dryness, Flaking, Pale Tristian: 13
--- NOTE | 2019-01-22 15:55 | Internal Medicine Prog Note ---
Internal Medicine Subjective - Subjective Service Date: 01/22/19 Patient is:: awake, verbal, interactive, agitated, confused Patient Complaints of:: other (patient left her feces all over her room.) Per staff patient has:: no adverse event, no episodes of fall Internal Medicine Objective - Physical Exam Vitals and I&O: Vital Signs Temp 98.0 F 01/22/19 14:47 Pulse 72 01/22/19 14:47 Resp 20 01/22/19 14:57 BP 119/54 01/22/19 14:47 Pulse Ox 97 01/22/19 14:47 Intake & Output 01/21/19 01/22/19 01/22/19 18:59 06:59 18:59 Intake Total 960 300 Balance 960 300 Intake: Oral 960 300 Other: # Voids 4 3 # Bowel Movements 1 0 Active Medications: Current Medications Acetaminophen (Tylenol) 650 mg PO Q8H PRN PRN Reason: Mild Pain / Temp above 100 Stop: 03/12/19 03:48 [place] Oil/[place]an Balsam/Trypsin (Venelex) 0 appl TP DAILY DANYELLE Stop: 03/13/19 08:59 Last Admin: 01/22/19 09:15 Dose: Not Given Lorazepam (Ativan) 0.5 mg PO Q4H PRN; Protocol PRN Reason: Anxiety Stop: 03/12/19 03:48 Last Admin: 01/20/19 23:32 Dose: 0.5 mg Multi-Ingredient Cream (Eucerin Cream) 1 appl TP BID DANYELLE Stop: 03/13/19 08:59 Last Admin: 01/22/19 09:15 Dose: Not Given Olanzapine 5 mg/ Olanzapine 2. (5 mg) 7.5 mg PO DAILY DANYELLE Stop: 03/20/19 08:59 Last Admin: 01/22/19 09:15 Dose: Not Given Zolpidem Tartrate (Ambien) 5 mg PO HS PRN PRN Reason: Insomnia Stop: 03/12/19 03:48 Last Admin: 01/20/19 21:35 Dose: 5 mg General: demented, NAD HEENT: NC/AT Neck: Supple, No JVD Lungs: CTAB Cardiovascular: RRR Abdomen: soft, non-tender, non-distended Extremities: clear Neurological: no change Internal Medicine Assmt/Plan - Assessment Assessment: Increased agitation Acute psychosis Hx bipolar disorder - Plan Plan: Continue current treatment plan. Monitor Labs. Continue current medications Continue to monitor VS Monitor Diet/Nutritional support. Psych management per Psychiatry. Pain Management. PT/OT prn Safety precaution, Fall precaution, frequent nursing round. Supportive care. Continue collaborating with consulting specialists, case management and nursing team Nutritional Asmnt/Malnutr-PDOC - Dietary Evaluation Malnutrition Findings (Please click <Entered> for more info): Nutritional Asmnt/Malnutrition Start: 01/15/19 13: 29 Text: Status: Complete Freq: Protocol: Document 01/15/19 13:29 VIKTORIYABASIL (Rec: 01/15/19 13:31 IZZYERINBASIL [email or web address]) Nutritional Asmnt/Malnutrition Patient General Information Nutritional Screening Moderate Risk Diagnosis Psychosis Pertinent Medical Hx/Surgical Hx Bipolar Disorder Subjective Information Pt is an 83-year-old female admitted on 01/11 d/t increased agitation and psychotic behavior. Pt is eating an estimated 78% of meals x3 days (average) Per Meal/Nutrition Activity Record-adequate to meet nutritional needs. Pt has extremely dry and scaly APRIL extremities. Pt often refuses medication and cream. Provided nurseSteph with Mt to support healing. Will monitor skin integrity. HT: 54 WT: 110 LB (50 kg) BMI: 18.88 (Normal) GI: WNL, Soft, Non-tender BM: 01/15 x2 I/O: 1160/1 (+1159) Skin: WNL, Dryness, Flaking, Pale Tristian: 13 Diet Order: Regular Estimated Energy Needs: ( Geriatric, CBW) 6719-8065 kcals (25-30 kcals/ kg) 50-60g Pro (1.0-1.2 g/kg) 0772-7478 ml (25-30 ml/kg) Pt is eating 78% of meals Per Meal/Nutrition Activity Record . Dietary is currently providing an estimated 1780 kcals and 140 gm Pro, per Pt PO intake this is providing an estimated 1390 kcals and 109gm Pro to meet 100% kcal and 100+% Pro needs- adequate. Current Diet Order/ Nutrition Support Regular Pertinent Medications No pertinent Medications Pertinent Labs No Labs to Report Nutritional Hx/Data Height 5 ft 4 in Height (Calculated Centimeters) 162.6 Current Weight (lbs) 110 lb Weight (Calculated Kilograms) 49.9 Weight (Calculated Grams) 29077.2 [place] Body Weight 120 LB (54.55 kg) % [place] Body Weight 92 Body Mass Index (BMI) 18.8 Recent Weight Change Yes GI Symptoms Last BM 01/15 x2 Skin Integrity/Comment: Skin: WNL, Dryness, Flaking, Pale Tristian: 13
--- NOTE | 2019-01-22 23:52 | Progress Notes ---
DATE: 01/22/2019 FOLLOWUP PROGRESS NOTE Case was discussed with staff of the patient, reviewed records. Covering for Dr. Kelly. The patient continues to be delusional, paranoid. She believes that she is being poisoned. She does not know why she is here. She is demented, confused. She continues to be easily agitated, irritable, needing redirection with multiple complaints. No side effects with the medication, no sedation, no nausea, no extrapyramidal symptoms. Zyprexa was increased 2 days ago to 7.5 mg daily with no side effects. We will continue to work with the patient in group therapy, milieu therapy and adjust the medication as needed. JOB# [id number]
--- NOTE | 2019-01-23 08:49 | Progress Notes ---
DATE: 01/23/2019 SUBJECTIVE: Case was discussed with staff of the patient, reviewed records. The patient continues to be confused, continues to have poor insight, continues to be unable to make safe plan for self-care. When asked about her name today, she said her name is Caridad Marcus, also known as Mariel Alegre. She is demented, confused, unable to make safe plan for self-care, easily agitated. No side effects from the medication, no sedation, no nausea, no extrapyramidal symptoms. We will continue outpatient group therapy, milieu therapy, and adjust medication as needed. [facility]# [id number]
[2019-01-23] MEDS: Eucerin Cream 16 oz Jar TP SCH ×2 (09:16→16:55)
[2019-01-23] MEDS: Venelex 60gm Tube TP SCH (09:16)
--- NOTE | 2019-01-23 13:25 | Internal Medicine Prog Note ---
Internal Medicine Subjective - Subjective Service Date: 01/23/19 Patient seen and examined:: with staff Patient is:: awake, verbal, interactive, agitated, confused Patient Complaints of:: other (patient left her feces all over her room.) Per staff patient has:: no adverse event, no episodes of fall Internal Medicine Objective - Physical Exam Vitals and I&O: Vital Signs Temp 97.3 F 01/23/19 05:57 Pulse 77 01/23/19 05:57 Resp 19 01/23/19 05:57 BP 137/75 01/23/19 05:57 Pulse Ox 95 01/23/19 05:57 Intake & Output 01/22/19 01/23/19 01/23/19 18:59 06:59 18:59 Intake Total 1080 180 Balance 1080 180 Intake: Oral 1080 180 Other: # Voids 3 1 # Bowel Movements 0 1 Active Medications: Current Medications Acetaminophen (Tylenol) 650 mg PO Q8H PRN PRN Reason: Mild Pain / Temp above 100 Stop: 03/12/19 03:48 [place] Oil/[place] Balsam/Trypsin (Venelex) 0 appl TP DAILY DANYELLE Stop: 03/13/19 08:59 Last Admin: 01/23/19 09:16 Dose: Not Given Lorazepam (Ativan) 0.5 mg PO Q4H PRN; Protocol PRN Reason: Anxiety Stop: 03/12/19 03:48 Last Admin: 01/20/19 23:32 Dose: 0.5 mg Multi-Ingredient Cream (Eucerin Cream) 1 appl TP BID DANYELLE Stop: 03/13/19 08:59 Last Admin: 01/23/19 09:16 Dose: Not Given Olanzapine 5 mg/ Olanzapine 2. (5 mg) 7.5 mg PO DAILY DANYELLE Stop: 03/20/19 08:59 Last Admin: 01/23/19 09:16 Dose: Not Given Zolpidem Tartrate (Ambien) 5 mg PO HS PRN PRN Reason: Insomnia Stop: 03/12/19 03:48 Last Admin: 01/22/19 20:52 Dose: 5 mg Physical Exam: Patient is still very confused and paranoid. General: demented, NAD HEENT: NC/AT Neck: Supple, No JVD Lungs: CTAB Cardiovascular: RRR Abdomen: soft, non-tender, non-distended Extremities: clear Neurological: no change Internal Medicine Assmt/Plan - Assessment Assessment: Increased agitation. Acute Psychosis. History of Bipolar disorder. - Plan Plan: Continuation of care. Psych management per Psych. Wound care prn. Continue present meds as directed. Monitor diet/nutritional support. Continue present care management. Nutritional Asmnt/Malnutr-PDOC - Dietary Evaluation Malnutrition Findings (Please click <Entered> for more info): Nutritional Asmnt/Malnutrition Start: 01/15/19 13: 29 Text: Status: Complete Freq: Protocol: Document 01/15/19 13:29 MJ (Rec: 01/15/19 13:31 MJ [email or web address]) Nutritional Asmnt/Malnutrition Patient General Information Nutritional Screening Moderate Risk Diagnosis Psychosis Pertinent Medical Hx/Surgical Hx Bipolar Disorder Subjective Information Pt is an 83-year-old female admitted on 01/11 d/t increased agitation and psychotic behavior. Pt is eating an estimated 78% of meals x3 days (average) Per Meal/Nutrition Activity Record-adequate to meet nutritional needs. Pt has extremely dry and scaly APRIL extremities. Pt often refuses medication and cream. Provided nurseSteph with Mt to support healing. Will monitor skin integrity. HT: 54 WT: 110 LB (50 kg) BMI: 18.88 (Normal) GI: WNL, Soft, Non-tender BM: 01/15 x2 I/O: 1160/1 (+1159) Skin: WNL, Dryness, Flaking, Pale Tristian: 13 Diet Order: Regular Estimated Energy Needs: ( Geriatric, CBW) 2797-6593 kcals (25-30 kcals/ kg) 50-60g Pro (1.0-1.2 g/kg) 1562-0391 ml (25-30 ml/kg) Pt is eating 78% of meals Per Meal/Nutrition Activity Record . Dietary is currently providing an estimated 1780 kcals and 140 gm Pro, per Pt PO intake this is providing an estimated 1390 kcals and 109gm Pro to meet 100% kcal and 100+% Pro needs- adequate. Current Diet Order/ Nutrition Support Regular Pertinent Medications No pertinent Medications Pertinent Labs No Labs to Report Nutritional Hx/Data Height 1.63 m Height (Calculated Centimeters) 162.6 Current Weight (lbs) 49.895 kg Weight (Calculated Kilograms) 49.9 Weight (Calculated Grams) 93172.2 [place] Body Weight 120 LB (54.55 kg) % [place] Body Weight 92 Body Mass Index (BMI) 18.8 Recent Weight Change Yes GI Symptoms Last BM 01/15 x2 Skin Integrity/Comment: Skin: WNL, Dryness, Flaking, Pale Tristian: 13
[2019-01-24] MEDS: Eucerin Cream 16 oz Jar TP SCH ×2 (09:38→17:03)
[2019-01-24] MEDS: Venelex 60gm Tube TP SCH (09:38)
--- NOTE | 2019-01-24 18:27 | Internal Medicine Prog Note ---
Internal Medicine Subjective - Subjective Service Date: 01/24/19 Patient is:: awake, verbal, interactive, agitated, confused Patient Complaints of:: other (patient left her feces all over her room.) Per staff patient has:: no adverse event, no episodes of fall Internal Medicine Objective - Physical Exam Vitals and I&O: Vital Signs Temp 97.4 F 01/24/19 14:00 Pulse 86 01/24/19 14:00 Resp 18 01/24/19 14:00 BP 111/52 01/24/19 14:00 Pulse Ox 97 01/24/19 14:00 Intake & Output 01/23/19 01/24/19 01/24/19 18:59 06:59 18:59 Intake Total 1200 120 Balance 1200 120 Intake: Oral 1080 120 Other 120 Other: # Voids 3 3 # Bowel Movements 0 Active Medications: Current Medications Acetaminophen (Tylenol) 650 mg PO Q8H PRN PRN Reason: Mild Pain / Temp above 100 Stop: 03/12/19 03:48 [place] Oil/[place] Balsam/Trypsin (Venelex) 0 appl TP DAILY DANYELLE Stop: 03/13/19 08:59 Last Admin: 01/24/19 09:38 Dose: Not Given Lorazepam (Ativan) 0.5 mg PO Q4H PRN; Protocol PRN Reason: Anxiety Stop: 03/12/19 03:48 Last Admin: 01/20/19 23:32 Dose: 0.5 mg Multi-Ingredient Cream (Eucerin Cream) 1 appl TP BID DANYELLE Stop: 03/13/19 08:59 Last Admin: 01/24/19 17:03 Dose: Not Given Olanzapine 5 mg/ Olanzapine 2. (5 mg) 7.5 mg PO DAILY DANYELLE Stop: 03/20/19 08:59 Last Admin: 01/24/19 08:37 Dose: 7.5 mg Zolpidem Tartrate (Ambien) 5 mg PO HS PRN PRN Reason: Insomnia Stop: 03/12/19 03:48 Last Admin: 01/22/19 20:52 Dose: 5 mg General: demented, NAD HEENT: NC/AT Neck: Supple, No JVD Lungs: CTAB Cardiovascular: RRR Abdomen: soft, non-tender, non-distended Extremities: clear Neurological: no change Internal Medicine Assmt/Plan - Assessment Assessment: Increased agitation Acute psychosis Hx bipolar disorder - Plan Plan: Continue current treatment plan. Monitor Labs. Continue current medications Continue to monitor VS Monitor Diet/Nutritional support. Psych management per Psychiatry. Pain Management. PT/OT prn Safety precaution, Fall precaution, frequent nursing round. Supportive care. Continue collaborating with consulting specialists, case management and nursing team Nutritional Asmnt/Malnutr-PDOC - Dietary Evaluation Malnutrition Findings (Please click <Entered> for more info): Nutritional Asmnt/Malnutrition Start: 01/15/19 13: 29 Text: Status: Complete Freq: Protocol: Document 01/15/19 13:29 [email or web address] (Rec: 01/15/19 13:31 IZZYERINBASIL [email or web address]) Nutritional Asmnt/Malnutrition Patient General Information Nutritional Screening Moderate Risk Diagnosis Psychosis Pertinent Medical Hx/Surgical Hx Bipolar Disorder Subjective Information Pt is an 83-year-old female admitted on 01/11 d/t increased agitation and psychotic behavior. Pt is eating an estimated 78% of meals x3 days (average) Per Meal/Nutrition Activity Record-adequate to meet nutritional needs. Pt has extremely dry and scaly APRIL extremities. Pt often refuses medication and cream. Provided nurseSteph with Mt to support healing. Will monitor skin integrity. HT: 54 WT: 110 LB (50 kg) BMI: 18.88 (Normal) GI: WNL, Soft, Non-tender BM: 01/15 x2 I/O: 1160/1 (+1159) Skin: WNL, Dryness, Flaking, Pale Tristian: 13 Diet Order: Regular Estimated Energy Needs: ( Geriatric, CBW) 8350-7693 kcals (25-30 kcals/ kg) 50-60g Pro (1.0-1.2 g/kg) 5258-9876 ml (25-30 ml/kg) Pt is eating 78% of meals Per Meal/Nutrition Activity Record . Dietary is currently providing an estimated 1780 kcals and 140 gm Pro, per Pt PO intake this is providing an estimated 1390 kcals and 109gm Pro to meet 100% kcal and 100+% Pro needs- adequate. Current Diet Order/ Nutrition Support Regular Pertinent Medications No pertinent Medications Pertinent Labs No Labs to Report Nutritional Hx/Data Height 5 ft 4 in Height (Calculated Centimeters) 162.6 Current Weight (lbs) 110 lb Weight (Calculated Kilograms) 49.9 Weight (Calculated Grams) 98119.2 [place] Body Weight 120 LB (54.55 kg) % [place] Body Weight 92 Body Mass Index (BMI) 18.8 Recent Weight Change Yes GI Symptoms Last BM 01/15 x2 Skin Integrity/Comment: Skin: WNL, Dryness, Flaking, Pale Tristian: 13
--- NOTE | 2019-01-24 20:45 | Progress Notes ---
DATE: 01/24/[address] Bazan. Case was discussed with staff of the patient, reviewed treatment plans and goals. The patient is in agreement. We also did lab work. The patient continues to be confused, demented, suspicious, paranoid, unpredictable, impulsive, and needing redirection. Continues to have poor insight, unable to make safe plan for self-care. No side effects of the medication, no sedation, no nausea, no extrapyramidal symptoms. We will continue to work with the patient in group therapy, milieu therapy, and adjust the medication as needed. JOB# [id number]
[2019-01-25] MEDS: Venelex 60gm Tube TP SCH (09:25)
[2019-01-25] MEDS: Eucerin Cream 16 oz Jar TP SCH ×3 (09:26→18:34)
--- NOTE | 2019-01-25 12:10 | Internal Medicine Prog Note ---
Internal Medicine Subjective - Subjective Service Date: 01/25/19 Patient seen and examined:: with staff Patient is:: awake, verbal, interactive, agitated, confused Patient Complaints of:: other (patient left her feces all over her room.) Per staff patient has:: no adverse event, no episodes of fall Internal Medicine Objective - Physical Exam Vitals and I&O: Vital Signs Temp 97 F 01/25/19 06:30 Pulse 68 01/25/19 06:30 Resp 18 01/25/19 06:30 BP 123/76 01/25/19 06:30 Pulse Ox 97 01/25/19 06:30 Intake & Output 01/24/19 01/25/19 01/25/19 18:59 06:59 18:59 Intake Total 960 120 Balance 960 120 Intake: Oral 960 120 Other: # Voids 3 3 # Bowel Movements 1 Active Medications: Current Medications Acetaminophen (Tylenol) 650 mg PO Q8H PRN PRN Reason: Mild Pain / Temp above 100 Stop: 03/12/19 03:48 [place] Oil/[place] Balsam/Trypsin (Venelex) 0 appl TP DAILY DANYELLE Stop: 03/13/19 08:59 Last Admin: 01/25/19 09:25 Dose: 1 appl Lorazepam (Ativan) 0.5 mg PO Q4H PRN; Protocol PRN Reason: Anxiety Stop: 03/12/19 03:48 Last Admin: 01/20/19 23:32 Dose: 0.5 mg Multi-Ingredient Cream (Eucerin Cream) 1 appl TP BID DANYELLE Stop: 03/13/19 08:59 Last Admin: 01/25/19 09:26 Dose: 1 appl Olanzapine 5 mg/ Olanzapine 2. (5 mg) 7.5 mg PO DAILY DANYELLE Stop: 03/20/19 08:59 Last Admin: 01/25/19 09:25 Dose: 7.5 mg Zolpidem Tartrate (Ambien) 5 mg PO HS PRN PRN Reason: Insomnia Stop: 03/12/19 03:48 Last Admin: 01/22/19 20:52 Dose: 5 mg Physical Exam: Patient needs to be monitored, having psychotic episodes, having feces all over her room, very confused and easily agitated. General: demented, NAD HEENT: NC/AT Neck: Supple, No JVD Lungs: CTAB Cardiovascular: RRR Abdomen: soft, non-tender, non-distended Extremities: clear Neurological: no change Internal Medicine Assmt/Plan - Assessment Assessment: Increased agitation. Acute Psychosis. History of Bipolar disorder. - Plan Plan: Continuation of care. Psych management per Psych. Wound care prn. Continue present meds as directed. Monitor diet/nutritional support. Continue present care management. Nutritional Asmnt/Malnutr-PDOC - Dietary Evaluation Malnutrition Findings (Please click <Entered> for more info): Nutritional Asmnt/Malnutrition Start: 01/15/19 13: 29 Text: Status: Complete Freq: Protocol: Document 01/15/19 13:29 MJ (Rec: 01/15/19 13:31 MJ [email or web address]) Nutritional Asmnt/Malnutrition Patient General Information Nutritional Screening Moderate Risk Diagnosis Psychosis Pertinent Medical Hx/Surgical Hx Bipolar Disorder Subjective Information Pt is an 83-year-old female admitted on 01/11 d/t increased agitation and psychotic behavior. Pt is eating an estimated 78% of meals x3 days (average) Per Meal/Nutrition Activity Record-adequate to meet nutritional needs. Pt has extremely dry and scaly APRIL extremities. Pt often refuses medication and cream. Provided nurseSteph with Mt to support healing. Will monitor skin integrity. HT: 54 WT: 110 LB (50 kg) BMI: 18.88 (Normal) GI: WNL, Soft, Non-tender BM: 10 x2 I/O: 1160/1 (+1159) Skin: WNL, Dryness, Flaking, Pale Tristian: 13 Diet Order: Regular Estimated Energy Needs: ( Geriatric, CBW) 1731-2614 kcals (25-30 kcals/ kg) 50-60g Pro (1.0-1.2 g/kg) 2008-9712 ml (25-30 ml/kg) Pt is eating 78% of meals Per Meal/Nutrition Activity Record . Dietary is currently providing an estimated 1780 kcals and 140 gm Pro, per Pt PO intake this is providing an estimated 1390 kcals and 109gm Pro to meet 100% kcal and 100+% Pro needs- adequate. Current Diet Order/ Nutrition Support Regular Pertinent Medications No pertinent Medications Pertinent Labs No Labs to Report Nutritional Hx/Data Height 1.63 m Height (Calculated Centimeters) 162.6 Current Weight (lbs) 49.895 kg Weight (Calculated Kilograms) 49.9 Weight (Calculated Grams) 00874.2 [place] Body Weight 120 LB (54.55 kg) % [place] Body Weight 92 Body Mass Index (BMI) 18.8 Recent Weight Change Yes GI Symptoms Last BM 01/15 x2 Skin Integrity/Comment: Skin: WNL, Dryness, Flaking, Pale Tristian: 13
--- NOTE | 2019-01-25 23:53 | Progress Notes ---
DATE: 01/25/2019 Case was discussed with staff of the patient, reviewed records. The patient continues to be confused and demented. Continues to be delusional, suspicious, paranoid, believed people are poisoning her. Continues to be unable to make safe plan for self-care. No side effects with the medication, no sedation, no nausea, or no extrapyramidal symptoms. Continues to need a lot of redirection and we will continue to work with the patient in group therapy, milieu therapy, and adjust her medication as needed. JOB# [id number]
[2019-01-26] MEDS: Eucerin Cream 16 oz Jar TP SCH ×2 (09:00→17:22)
[2019-01-26] MEDS: Venelex 60gm Tube TP SCH (09:00)
--- NOTE | 2019-01-26 16:42 | Internal Medicine Prog Note ---
Internal Medicine Subjective - Subjective Service Date: 01/26/19 Patient seen and examined:: with staff Patient is:: awake, verbal, interactive, agitated, confused Patient Complaints of:: other (patient left her feces all over her room.) Per staff patient has:: no adverse event, no episodes of fall Internal Medicine Objective - Physical Exam Vitals and I&O: Vital Signs Temp 97.8 F 01/26/19 15:00 Pulse 75 01/26/19 15:00 Resp 20 01/26/19 15:00 BP 153/74 01/26/19 15:00 Pulse Ox 96 01/26/19 15:00 Active Medications: Current Medications Acetaminophen (Tylenol) 650 mg PO Q8H PRN PRN Reason: Mild Pain / Temp above 100 Stop: 03/12/19 03:48 [place] Oil/[place]ai Balsam/Trypsin (Venelex) 0 appl TP DAILY DANYELLE Stop: 03/13/19 08:59 Last Admin: 01/25/19 09:25 Dose: 1 appl Lorazepam (Ativan) 0.5 mg PO Q4H PRN; Protocol PRN Reason: Anxiety Stop: 03/12/19 03:48 Last Admin: 01/20/19 23:32 Dose: 0.5 mg Multi-Ingredient Cream (Eucerin Cream) 1 appl TP BID DANYELLE Stop: 03/13/19 08:59 Last Admin: 01/25/19 18:34 Dose: 1 appl Olanzapine 5 mg/ Olanzapine 2. (5 mg) 7.5 mg PO DAILY DANYELLE Stop: 03/20/19 08:59 Last Admin: 01/26/19 09:23 Dose: 7.5 mg Zolpidem Tartrate (Ambien) 5 mg PO HS PRN PRN Reason: Insomnia Stop: 03/12/19 03:48 Last Admin: 01/22/19 20:52 Dose: 5 mg Physical Exam: Patient is very delusional and demented, needs to be closely monitored. General: demented, NAD HEENT: NC/AT Neck: Supple, No JVD Lungs: CTAB Cardiovascular: RRR Abdomen: soft, non-tender, non-distended Extremities: clear Neurological: no change Internal Medicine Assmt/Plan - Assessment Assessment: Increased agitation. Acute Psychosis. History of Bipolar disorder. - Plan Plan: Continuation of care. Psych management per Psych. Wound care prn. Continue present meds as directed. Monitor diet/nutritional support. Continue present care management. Nutritional Asmnt/Malnutr-PDOC - Dietary Evaluation Malnutrition Findings (Please click <Entered> for more info): Nutritional Asmnt/Malnutrition Start: 01/15/19 13: 29 Text: Status: Complete Freq: Protocol: Document 01/15/19 13:29 MJ (Rec: 01/15/19 13:31 MJ [email or web address]) Nutritional Asmnt/Malnutrition Patient General Information Nutritional Screening Moderate Risk Diagnosis Psychosis Pertinent Medical Hx/Surgical Hx Bipolar Disorder Subjective Information Pt is an 83-year-old female admitted on 01/11 d/t increased agitation and psychotic behavior. Pt is eating an estimated 78% of meals x3 days (average) Per Meal/Nutrition Activity Record-adequate to meet nutritional needs. Pt has extremely dry and scaly APRIL extremities. Pt often refuses medication and cream. Provided nurse, Steph with Mt to support healing. Will monitor skin integrity. HT: 54 WT: 110 LB (50 kg) BMI: 18.88 (Normal) GI: WNL, Soft, Non-tender BM: 01/15 x2 I/O: 1160/1 (+1159) Skin: WNL, Dryness, Flaking, Pale Tristian: 13 Diet Order: Regular Estimated Energy Needs: ( Geriatric, CBW) 2677-7433 kcals (25-30 kcals/ kg) 50-60g Pro (1.0-1.2 g/kg) 5948-0231 ml (25-30 ml/kg) Pt is eating 78% of meals Per Meal/Nutrition Activity Record . Dietary is currently providing an estimated 1780 kcals and 140 gm Pro, per Pt PO intake this is providing an estimated 1390 kcals and 109gm Pro to meet 100% kcal and 100+% Pro needs- adequate. Current Diet Order/ Nutrition Support Regular Pertinent Medications No pertinent Medications Pertinent Labs No Labs to Report Nutritional Hx/Data Height 1.63 m Height (Calculated Centimeters) 162.6 Current Weight (lbs) 49.895 kg Weight (Calculated Kilograms) 49.9 Weight (Calculated Grams) 51030.2 [place] Body Weight 120 LB (54.55 kg) % [place] Body Weight 92 Body Mass Index (BMI) 18.8 Recent Weight Change Yes GI Symptoms Last BM 01/15 x2 Skin Integrity/Comment: Skin: WNL, Dryness, Flaking, Pale Tristian: 13
[2019-01-27] MEDS: Venelex 60gm Tube TP SCH (09:30)
[2019-01-27] MEDS: Eucerin Cream 16 oz Jar TP SCH (09:33)
--- NOTE | 2019-01-27 11:22 | Progress Notes ---
DATE: 01/26/2019 SUBJECTIVE: The patient was seen and evaluated. The patient's chart reviewed. Nursing staff reporting that the patient continues to be medication compliant. Today on [id number] evaluation, the patient reports that she has cyanide caught in her legs and reports how she got them was through her who used to be a professor at [employer]. When attempted to further clarify, she derails and unable to give much more information beyond that. MENTAL STATUS EXAMINATION: Delusions about her leg currently having cyanide. ASSESSMENT PLAN: Dementia with behavior disturbance and psychosis. We will continue monitoring and evaluating. She is currently on olanzapine 7.5 mg to target the patient's delusions. JOB# [id number]
--- NOTE | 2019-01-27 20:27 | Internal Medicine Prog Note ---
Internal Medicine Subjective - Subjective Patient is:: awake, verbal, interactive, agitated, confused Patient Complaints of:: other (patient left her feces all over her room.) Per staff patient has:: no adverse event, no episodes of fall Internal Medicine Objective - Physical Exam Vitals and I&O: Vital Signs Temp 97.4 F 01/27/19 18:13 Pulse 75 01/27/19 18:13 Resp 20 01/27/19 18:13 BP 146/63 01/27/19 18:13 Pulse Ox 97 01/27/19 18:13 Intake & Output 01/27/19 01/27/19 01/28/19 06:59 18:59 06:59 Intake Total 1000 Balance 1000 Intake: Oral 1000 Other: # Voids 4 # Bowel Movements 2 Stool Characteristics Soft Soft Active Medications: Current Medications Acetaminophen (Tylenol) 650 mg PO Q8H PRN PRN Reason: Mild Pain / Temp above 100 Stop: 03/12/19 03:48 [place] Oil/[place] Balsam/Trypsin (Venelex) 0 appl TP DAILY DANYELLE Stop: 03/13/19 08:59 Last Admin: 01/27/19 09:30 Dose: 1 appl Lorazepam (Ativan) 0.5 mg PO Q4H PRN; Protocol PRN Reason: Anxiety Stop: 03/12/19 03:48 Last Admin: 01/20/19 23:32 Dose: 0.5 mg Multi-Ingredient Cream (Eucerin Cream) 1 appl TP BID DANYELLE Stop: 03/13/19 08:59 Last Admin: 01/27/19 09:33 Dose: 1 appl Olanzapine 5 mg/ Olanzapine 2. (5 mg) 7.5 mg PO DAILY DANYELLE Stop: 03/20/19 08:59 Last Admin: 01/27/19 09:29 Dose: 7.5 mg Zolpidem Tartrate (Ambien) 5 mg PO HS PRN PRN Reason: Insomnia Stop: 03/12/19 03:48 Last Admin: 01/22/19 20:52 Dose: 5 mg General: demented, NAD HEENT: NC/AT Neck: Supple, No JVD Lungs: CTAB Cardiovascular: RRR Abdomen: soft, non-tender, non-distended Extremities: clear Neurological: no change Internal Medicine Assmt/Plan - Assessment Assessment: Increased agitation Acute psychosis Hx bipolar disorder - Plan Plan: Continue current treatment plan. Monitor Labs. Continue current medications Continue to monitor VS Monitor Diet/Nutritional support. Psych management per Psychiatry. Pain Management. PT/OT prn Safety precaution, Fall precaution, frequent nursing round. Supportive care. Continue collaborating with consulting specialists, case management and nursing team Nutritional Asmnt/Malnutr-PDOC - Dietary Evaluation Malnutrition Findings (Please click <Entered> for more info): Nutritional Asmnt/Malnutrition Start: 01/15/19 13: 29 Text: Status: Complete Freq: Protocol: Document 01/15/19 13:29 IZZYERINBASIL (Rec: 01/15/19 13:31 MJ [email or web address]) Nutritional Asmnt/Malnutrition Patient General Information Nutritional Screening Moderate Risk Diagnosis Psychosis Pertinent Medical Hx/Surgical Hx Bipolar Disorder Subjective Information Pt is an 83-year-old female admitted on 01/11 d/t increased agitation and psychotic behavior. Pt is eating an estimated 78% of meals x3 days (average) Per Meal/Nutrition Activity Record-adequate to meet nutritional needs. Pt has extremely dry and scaly APRIL extremities. Pt often refuses medication and cream. Provided nurseSteph with Mt to support healing. Will monitor skin integrity. HT: 54 WT: 110 LB (50 kg) BMI: 18.88 (Normal) GI: WNL, Soft, Non-tender BM: 01/15 x2 I/O: 1160/1 (+1159) Skin: WNL, Dryness, Flaking, Pale Tristian: 13 Diet Order: Regular Estimated Energy Needs: ( Geriatric, CBW) 8374-4839 kcals (25-30 kcals/ kg) 50-60g Pro (1.0-1.2 g/kg) 4202-5768 ml (25-30 ml/kg) Pt is eating 78% of meals Per Meal/Nutrition Activity Record . Dietary is currently providing an estimated 1780 kcals and 140 gm Pro, per Pt PO intake this is providing an estimated 1390 kcals and 109gm Pro to meet 100% kcal and 100+% Pro needs- adequate. Current Diet Order/ Nutrition Support Regular Pertinent Medications No pertinent Medications Pertinent Labs No Labs to Report Nutritional Hx/Data Height 5 ft 4 in Height (Calculated Centimeters) 162.6 Current Weight (lbs) 110 lb Weight (Calculated Kilograms) 49.9 Weight (Calculated Grams) 82712.2 [place] Body Weight 120 LB (54.55 kg) % [place] Body Weight 92 Body Mass Index (BMI) 18.8 Recent Weight Change Yes GI Symptoms Last BM 01/15 x2 Skin Integrity/Comment: Skin: WNL, Dryness, Flaking, Pale Tristian: 13
--- NOTE | 2019-01-27 21:34 | Progress Notes ---
DATE: 01/27/2019 Today on [id number] evaluation, the patient continues to talk about the [employer], [place] and then she was reporting that she was taken by nora and they had to had her voice. MENTAL STATUS EXAMINATION: Bizarre statements and disorganized. ASSESSMENT AND PLAN: Dementia with behavior disturbances and psychosis. We will continue with the current adjustment of medications, continue to resteady state to target the patient's ongoing disorganized state. [facility]# [id number]
[2019-01-28] MEDS: Venelex 60gm Tube TP SCH (09:49)
[2019-01-28] MEDS: Eucerin Cream 16 oz Jar TP SCH (09:49)
--- NOTE | 2019-01-28 10:09 | Internal Medicine Prog Note ---
Internal Medicine Subjective - Subjective Service Date: 01/28/19 Patient seen and examined:: with staff, chart reviewed Patient is:: awake, verbal, interactive, agitated, confused Patient Complaints of:: other (Psychotic.) Per staff patient has:: no adverse event, no episodes of fall Internal Medicine Objective - Physical Exam Vitals and I&O: Vital Signs Temp 98 F 01/28/19 06:26 Pulse 74 01/28/19 06:26 Resp 19 01/28/19 06:26 BP 139/68 01/28/19 06:26 Pulse Ox 95 01/28/19 06:26 Intake & Output 01/27/19 01/28/19 01/28/19 18:59 06:59 18:59 Intake Total 1000 120 Balance 1000 120 Intake: Oral 1000 120 Other: # Voids 4 3 # Bowel Movements 2 1 Stool Characteristics Soft Soft Active Medications: Current Medications Acetaminophen (Tylenol) 650 mg PO Q8H PRN PRN Reason: Mild Pain / Temp above 100 Stop: 03/12/19 03:48 [place] Oil/[place] Balsam/Trypsin (Venelex) 0 appl TP DAILY DANYELLE Stop: 03/13/19 08:59 Last Admin: 01/28/19 09:49 Dose: Not Given Lorazepam (Ativan) 0.5 mg PO Q4H PRN; Protocol PRN Reason: Anxiety Stop: 03/12/19 03:48 Last Admin: 01/20/19 23:32 Dose: 0.5 mg Multi-Ingredient Cream (Eucerin Cream) 1 appl TP BID DANYELLE Stop: 03/13/19 08:59 Last Admin: 01/28/19 09:49 Dose: Not Given Olanzapine 5 mg/ Olanzapine 2. (5 mg) 7.5 mg PO DAILY DANYELLE Stop: 03/20/19 08:59 Last Admin: 01/28/19 09:48 Dose: 7.5 mg Zolpidem Tartrate (Ambien) 5 mg PO HS PRN PRN Reason: Insomnia Stop: 03/12/19 03:48 Last Admin: 01/22/19 20:52 Dose: 5 mg Physical Exam: Patient has increase agitation, needs monitoring. General: demented, NAD HEENT: NC/AT Neck: Supple, No JVD Lungs: CTAB Cardiovascular: RRR Abdomen: soft, non-tender, non-distended Extremities: clear Neurological: no change Internal Medicine Assmt/Plan - Assessment Assessment: Increased agitation. Acute Psychosis. History of Bipolar disorder. - Plan Plan: Continuation of care. Psych management per Psych. Wound care prn. Continue present meds as directed. Monitor diet/nutritional support. Continue present care management. Nutritional Asmnt/Malnutr-PDOC - Dietary Evaluation Malnutrition Findings (Please click <Entered> for more info): Nutritional Asmnt/Malnutrition Start: 01/15/19 13: 29 Text: Status: Complete Freq: Protocol: Document 01/15/19 13:29 IZZYERINBASIL (Rec: 01/15/19 13:31 MJ [email or web address]) Nutritional Asmnt/Malnutrition Patient General Information Nutritional Screening Moderate Risk Diagnosis Psychosis Pertinent Medical Hx/Surgical Hx Bipolar Disorder Subjective Information Pt is an 83-year-old female admitted on 01/11 d/t increased agitation and psychotic behavior. Pt is eating an estimated 78% of meals x3 days (average) Per Meal/Nutrition Activity Record-adequate to meet nutritional needs. Pt has extremely dry and scaly APRIL extremities. Pt often refuses medication and cream. Provided nurseSteph with Mt to support healing. Will monitor skin integrity. HT: 54 WT: 110 LB (50 kg) BMI: 18.88 (Normal) GI: WNL, Soft, Non-tender BM: 01/15 x2 I/O: 1160/1 (+1159) Skin: WNL, Dryness, Flaking, Pale Tristian: 13 Diet Order: Regular Estimated Energy Needs: ( Geriatric, CBW) 8204-2295 kcals (25-30 kcals/ kg) 50-60g Pro (1.0-1.2 g/kg) 2008-8234 ml (25-30 ml/kg) Pt is eating 78% of meals Per Meal/Nutrition Activity Record . Dietary is currently providing an estimated 1780 kcals and 140 gm Pro, per Pt PO intake this is providing an estimated 1390 kcals and 109gm Pro to meet 100% kcal and 100+% Pro needs- adequate. Current Diet Order/ Nutrition Support Regular Pertinent Medications No pertinent Medications Pertinent Labs No Labs to Report Nutritional Hx/Data Height 1.63 m Height (Calculated Centimeters) 162.6 Current Weight (lbs) 49.895 kg Weight (Calculated Kilograms) 49.9 Weight (Calculated Grams) 28520.2 [place] Body Weight 120 LB (54.55 kg) % [place] Body Weight 92 Body Mass Index (BMI) 18.8 Recent Weight Change Yes GI Symptoms Last BM 01/15 x2 Skin Integrity/Comment: Skin: WNL, Dryness, Flaking, Pale Tristian: 13
--- NOTE | 2019-01-28 20:29 | Progress Notes ---
DATE: 01/28/2019 Case was discussed with staff of the patient, reviewed records. The patient continues to be delusional, fear people are poisoning her. Continues to have poor insight, unable to make safe plan for self-care, unpredictable, impulsive. We increased her Zyprexa to 10 mg at bedtime and also she is on Ambien. I asked the staff to make sure she gets it in case she does not sleep and if it does not work, maybe we need to add trazodone. No side effects with the medication, no sedation, no nausea, no extrapyramidal symptoms. We will continue to work with the patient in group therapy, milieu therapy, and adjust the medication as needed. JOB# [id number]
[2019-01-29] MEDS: Eucerin Cream 16 oz Jar TP SCH (10:04)
[2019-01-29] MEDS: Venelex 60gm Tube TP SCH (10:04)
--- NOTE | 2019-01-29 14:53 | Progress Notes ---
DATE: 01/29/2019 Case was discussed with staff of the patient, reviewed records. The patient has some difficulty with sleep. She tolerated increase in Zyprexa with no side effects, no sedation, no nausea, no extrapyramidal symptoms. She is eating better, continues to be confused. Believed people are trying to poison her, unpredictable, impulsive. No side effects with the medications, no sedation, no nausea, no extrapyramidal symptoms. We will continue to work with the patient in group therapy, milieu therapy, and adjust the medications as needed. JOB# [id number]
--- NOTE | 2019-01-29 16:12 | Internal Medicine Prog Note ---
Internal Medicine Subjective - Subjective Service Date: 01/29/19 Patient is:: awake, verbal, interactive, agitated, confused Patient Complaints of:: other (Psychotic.) Per staff patient has:: no adverse event, no episodes of fall Internal Medicine Objective - Physical Exam Vitals and I&O: Vital Signs Temp 97.5 F 01/29/19 13:55 Pulse 76 01/29/19 13:55 Resp 20 01/29/19 13:55 BP 124/73 01/29/19 13:55 Pulse Ox 97 01/29/19 13:55 Intake & Output 01/28/19 01/29/19 01/29/19 18:59 06:59 18:59 Intake Total 800 300 Balance 800 300 Intake: Oral 800 300 Other: # Voids 3 2 # Bowel Movements 1 1 Stool Characteristics Soft Soft Soft Active Medications: Current Medications Acetaminophen (Tylenol) 650 mg PO Q8H PRN PRN Reason: Mild Pain / Temp above 100 Stop: 03/12/19 03:48 [place] Oil/[place] Balsam/Trypsin (Venelex) 0 appl TP DAILY DANYELLE Stop: 03/13/19 08:59 Last Admin: 01/29/19 10:04 Dose: Not Given Lorazepam (Ativan) 0.5 mg PO Q4H PRN; Protocol PRN Reason: Anxiety Stop: 03/12/19 03:48 Last Admin: 01/20/19 23:32 Dose: 0.5 mg Multi-Ingredient Cream (Eucerin Cream) 1 appl TP BID DANYELLE Stop: 03/13/19 08:59 Last Admin: 01/29/19 10:04 Dose: Not Given Olanzapine (Zyprexa) 10 mg PO DAILY DANYELLE Stop: 03/30/19 08:59 Last Admin: 01/29/19 10:04 Dose: Not Given Zolpidem Tartrate (Ambien) 5 mg PO HS PRN PRN Reason: Insomnia Stop: 03/12/19 03:48 Last Admin: 01/22/19 20:52 Dose: 5 mg General: demented, NAD HEENT: NC/AT Neck: Supple, No JVD Lungs: CTAB Cardiovascular: RRR Abdomen: soft, non-tender, non-distended Extremities: clear Neurological: no change Internal Medicine Assmt/Plan - Assessment Assessment: Increased agitation Acute psychosis Hx bipolar disorder - Plan Plan: Continue current treatment plan. Monitor Labs. Continue current medications Continue to monitor VS Monitor Diet/Nutritional support. Psych management per Psychiatry. Pain Management. PT/OT prn Safety precaution, Fall precaution, frequent nursing round. Supportive care. Continue collaborating with consulting specialists, case management and nursing team Nutritional Asmnt/Malnutr-PDOC - Dietary Evaluation Malnutrition Findings (Please click <Entered> for more info): Nutritional Asmnt/Malnutrition Start: 01/15/19 13: 29 Text: Status: Complete Freq: Protocol: Document 01/15/19 13:29 IZZYERINBASIL (Rec: 01/15/19 13:31 MJ [email or web address]) Nutritional Asmnt/Malnutrition Patient General Information Nutritional Screening Moderate Risk Diagnosis Psychosis Pertinent Medical Hx/Surgical Hx Bipolar Disorder Subjective Information Pt is an 83-year-old female admitted on 01/11 d/t increased agitation and psychotic behavior. Pt is eating an estimated 78% of meals x3 days (average) Per Meal/Nutrition Activity Record-adequate to meet nutritional needs. Pt has extremely dry and scaly APRIL extremities. Pt often refuses medication and cream. Provided nurseSteph with Mt to support healing. Will monitor skin integrity. HT: 54 WT: 110 LB (50 kg) BMI: 18.88 (Normal) GI: WNL, Soft, Non-tender BM: 01/15 x2 I/O: 1160/1 (+1159) Skin: WNL, Dryness, Flaking, Pale Tristian: 13 Diet Order: Regular Estimated Energy Needs: ( Geriatric, CBW) 3403-0799 kcals (25-30 kcals/ kg) 50-60g Pro (1.0-1.2 g/kg) 9684-5528 ml (25-30 ml/kg) Pt is eating 78% of meals Per Meal/Nutrition Activity Record . Dietary is currently providing an estimated 1780 kcals and 140 gm Pro, per Pt PO intake this is providing an estimated 1390 kcals and 109gm Pro to meet 100% kcal and 100+% Pro needs- adequate. Current Diet Order/ Nutrition Support Regular Pertinent Medications No pertinent Medications Pertinent Labs No Labs to Report Nutritional Hx/Data Height 5 ft 4 in Height (Calculated Centimeters) 162.6 Current Weight (lbs) 110 lb Weight (Calculated Kilograms) 49.9 Weight (Calculated Grams) 17130.2 [place] Body Weight 120 LB (54.55 kg) % [place] Body Weight 92 Body Mass Index (BMI) 18.8 Recent Weight Change Yes GI Symptoms Last BM 01/15 x2 Skin Integrity/Comment: Skin: WNL, Dryness, Flaking, Pale Tristian: 13
[2019-01-30] MEDS: Venelex 60gm Tube TP SCH ×3 (08:50→17:18)
[2019-01-30] MEDS: Eucerin Cream 16 oz Jar TP SCH ×4 (08:51→16:36)
--- NOTE | 2019-01-30 15:02 | Internal Medicine Prog Note ---
Internal Medicine Subjective - Subjective Service Date: 01/30/19 Patient seen and examined:: with staff Patient is:: awake, verbal, interactive, agitated, confused Patient Complaints of:: other (Psychotic.) Per staff patient has:: no adverse event, no episodes of fall Internal Medicine Objective - Physical Exam Vitals and I&O: Vital Signs Temp 97 F 01/30/19 06:40 Pulse 75 01/30/19 06:40 Resp 19 01/30/19 06:40 BP 121/67 01/30/19 06:40 Pulse Ox 98 01/30/19 06:40 Intake & Output 01/29/19 01/30/19 01/30/19 18:59 06:59 18:59 Intake Total 120 Balance 120 Intake: Oral 120 Other: # Voids 4 3 # Bowel Movements 1 Stool Characteristics Soft Soft Active Medications: Current Medications Acetaminophen (Tylenol) 650 mg PO Q8H PRN PRN Reason: Mild Pain / Temp above 100 Stop: 03/12/19 03:48 [place] Oil/[place] Balsam/Trypsin (Venelex) 0 appl TP DAILY DANYELLE Stop: 03/13/19 08:59 Last Admin: 01/30/19 08:58 Dose: Not Given Lorazepam (Ativan) 0.5 mg PO Q4H PRN; Protocol PRN Reason: Anxiety Stop: 03/12/19 03:48 Last Admin: 01/20/19 23:32 Dose: 0.5 mg Multi-Ingredient Cream (Eucerin Cream) 1 appl TP BID DANYELLE Stop: 03/13/19 08:59 Last Admin: 01/30/19 10:51 Dose: 1 appl Olanzapine (Zyprexa) 10 mg PO DAILY DANYELLE Stop: 03/30/19 08:59 Last Admin: 01/30/19 08:58 Dose: Not Given Zolpidem Tartrate (Ambien) 5 mg PO HS PRN PRN Reason: Insomnia Stop: 03/12/19 03:48 Last Admin: 01/22/19 20:52 Dose: 5 mg Physical Exam: Patient is demented and psychotic. General: demented, NAD HEENT: NC/AT Neck: Supple, No JVD Lungs: CTAB Cardiovascular: RRR Abdomen: soft, non-tender, non-distended Extremities: clear Neurological: no change Internal Medicine Assmt/Plan - Assessment Assessment: Increased agitation. Acute Psychosis. History of Bipolar disorder. - Plan Plan: Continuation of care. Psych management per Psych. Wound care prn. Continue present meds as directed. Monitor diet/nutritional support. Continue present care management. Nutritional Asmnt/Malnutr-PDOC - Dietary Evaluation Malnutrition Findings (Please click <Entered> for more info): Nutritional Asmnt/Malnutrition Start: 01/15/19 13: 29 Text: Status: Complete Freq: Protocol: Document 01/15/19 13:29 MJ (Rec: 01/15/19 13:31 MJ [email or web address]) Nutritional Asmnt/Malnutrition Patient General Information Nutritional Screening Moderate Risk Diagnosis Psychosis Pertinent Medical Hx/Surgical Hx Bipolar Disorder Subjective Information Pt is an 83-year-old female admitted on 01/11 d/t increased agitation and psychotic behavior. Pt is eating an estimated 78% of meals x3 days (average) Per Meal/Nutrition Activity Record-adequate to meet nutritional needs. Pt has extremely dry and scaly APRIL extremities. Pt often refuses medication and cream. Provided nurseSteph with Mt to support healing. Will monitor skin integrity. HT: 54 WT: 110 LB (50 kg) BMI: 18.88 (Normal) GI: WNL, Soft, Non-tender BM: 01/15 x2 I/O: 1160/1 (+1159) Skin: WNL, Dryness, Flaking, Pale Tristian: 13 Diet Order: Regular Estimated Energy Needs: ( Geriatric, CBW) 2359-6245 kcals (25-30 kcals/ kg) 50-60g Pro (1.0-1.2 g/kg) 4726-0555 ml (25-30 ml/kg) Pt is eating 78% of meals Per Meal/Nutrition Activity Record . Dietary is currently providing an estimated 1780 kcals and 140 gm Pro, per Pt PO intake this is providing an estimated 1390 kcals and 109gm Pro to meet 100% kcal and 100+% Pro needs- adequate. Current Diet Order/ Nutrition Support Regular Pertinent Medications No pertinent Medications Pertinent Labs No Labs to Report Nutritional Hx/Data Height 1.63 m Height (Calculated Centimeters) 162.6 Current Weight (lbs) 49.895 kg Weight (Calculated Kilograms) 49.9 Weight (Calculated Grams) 16539.2 [place] Body Weight 120 LB (54.55 kg) % [place] Body Weight 92 Body Mass Index (BMI) 18.8 Recent Weight Change Yes GI Symptoms Last BM 01/15 x2 Skin Integrity/Comment: Skin: WNL, Dryness, Flaking, Pale Tristian: 13
--- NOTE | 2019-01-30 15:24 | Progress Notes ---
DATE: 01/30/2019 Case was discussed with staff of the patient, reviewed records. The patient increase in Zyprexa with no side effects. She is sleeping better; however, she still talking to herself. Continues to be unable to make safe plan for self-care. Continues to be unpredictable, impulsive, needing redirection. She continues to be paranoid, believes she is being poisoned and no side effects with the medication, no sedation, no nausea, no extrapyramidal symptoms. She is in a wheelchair. We will continue outpatient group therapy, milieu therapy, adjust medication as needed. JOB# [id number]
[2019-01-31] MEDS: Eucerin Cream 16 oz Jar TP SCH ×2 (09:05→16:43)
[2019-01-31] MEDS: Venelex 60gm Tube TP SCH (09:06)
--- NOTE | 2019-01-31 13:30 | Progress Notes ---
DATE: 01/31/2019 Case was discussed with staff of the patient, reviewed records. The patient continues to be paranoid, demented, confused, unable to make safe plan for self-care or participate in meaningful conversation, talking to herself. She tolerates the increase in her olanzapine to 10 mg at bedtime. I will be adding Aricept to her medication. No side effects with the medication, no sedation, no nausea. Continues to be paranoid and we will continue outpatient group therapy, milieu therapy, adjust medication as needed. JOB# [id number]
--- NOTE | 2019-01-31 15:26 | Internal Medicine Prog Note ---
Internal Medicine Subjective - Subjective Service Date: 01/31/19 Patient is:: awake, verbal, interactive, agitated, confused Patient Complaints of:: other (Psychotic.) Per staff patient has:: no adverse event, no episodes of fall Internal Medicine Objective - Physical Exam Vitals and I&O: Vital Signs Temp 97.2 F 01/31/19 14:00 Pulse 73 01/31/19 14:00 Resp 20 01/31/19 14:00 BP 113/53 01/31/19 14:00 Pulse Ox 98 01/31/19 14:00 Intake & Output 01/30/19 01/31/19 01/31/19 18:59 06:59 18:59 Intake Total 1080 120 Balance 1080 120 Intake: Oral 840 120 Other 240 Other: # Voids 3 3 # Bowel Movements 0 Stool Characteristics Soft Active Medications: Current Medications Acetaminophen (Tylenol) 650 mg PO Q8H PRN PRN Reason: Mild Pain / Temp above 100 Stop: 03/12/19 03:48 [place] Oil/[place] Balsam/Trypsin (Venelex) 0 appl TP DAILY DANYELLE Stop: 03/13/19 08:59 Last Admin: 01/31/19 09:06 Dose: 1 appl Donepezil HCl (Aricept) 5 mg PO HS DANYELLE Stop: 04/01/19 20:59 Lorazepam (Ativan) 0.5 mg PO Q4H PRN; Protocol PRN Reason: Anxiety Stop: 03/12/19 03:48 Last Admin: 01/20/19 23:32 Dose: 0.5 mg Multi-Ingredient Cream (Eucerin Cream) 1 appl TP BID DANYELLE Stop: 03/13/19 08:59 Last Admin: 01/31/19 09:05 Dose: 1 appl Olanzapine (Zyprexa) 10 mg PO DAILY DANYELLE Stop: 03/30/19 08:59 Last Admin: 01/31/19 09:06 Dose: Not Given Zolpidem Tartrate (Ambien) 5 mg PO HS PRN PRN Reason: Insomnia Stop: 03/12/19 03:48 Last Admin: 01/22/19 20:52 Dose: 5 mg General: demented, NAD HEENT: NC/AT Neck: Supple, No JVD Lungs: CTAB Cardiovascular: RRR Abdomen: soft, non-tender, non-distended Extremities: clear Neurological: no change Internal Medicine Assmt/Plan - Assessment Assessment: Increased agitation Acute psychosis Hx bipolar disorder - Plan Plan: Continue current treatment plan. Monitor Labs. Continue current medications Continue to monitor VS Monitor Diet/Nutritional support. Psych management per Psychiatry. Pain Management. PT/OT prn Safety precaution, Fall precaution, frequent nursing round. Supportive care. Continue collaborating with consulting specialists, case management and nursing team Nutritional Asmnt/Malnutr-PDOC - Dietary Evaluation Malnutrition Findings (Please click <Entered> for more info): Nutritional Asmnt/Malnutrition Start: 01/15/19 13: 29 Text: Status: Complete Freq: Protocol: Document 01/15/19 13:29 MJ (Rec: 01/15/19 13:31 MJ [email or web address]) Nutritional Asmnt/Malnutrition Patient General Information Nutritional Screening Moderate Risk Diagnosis Psychosis Pertinent Medical Hx/Surgical Hx Bipolar Disorder Subjective Information Pt is an 83-year-old female admitted on 01/11 d/t increased agitation and psychotic behavior. Pt is eating an estimated 78% of meals x3 days (average) Per Meal/Nutrition Activity Record-adequate to meet nutritional needs. Pt has extremely dry and scaly APRIL extremities. Pt often refuses medication and cream. Provided nurseSteph with Mt to support healing. Will monitor skin integrity. HT: 54 WT: 110 LB (50 kg) BMI: 18.88 (Normal) GI: WNL, Soft, Non-tender BM: 01/15 x2 I/O: 1160/1 (+1159) Skin: WNL, Dryness, Flaking, Pale Tristian: 13 Diet Order: Regular Estimated Energy Needs: ( Geriatric, CBW) 1257-3265 kcals (25-30 kcals/ kg) 50-60g Pro (1.0-1.2 g/kg) 1209-7245 ml (25-30 ml/kg) Pt is eating 78% of meals Per Meal/Nutrition Activity Record . Dietary is currently providing an estimated 1780 kcals and 140 gm Pro, per Pt PO intake this is providing an estimated 1390 kcals and 109gm Pro to meet 100% kcal and 100+% Pro needs- adequate. Current Diet Order/ Nutrition Support Regular Pertinent Medications No pertinent Medications Pertinent Labs No Labs to Report Nutritional Hx/Data Height 5 ft 4 in Height (Calculated Centimeters) 162.6 Current Weight (lbs) 110 lb Weight (Calculated Kilograms) 49.9 Weight (Calculated Grams) 95926.2 [place] Body Weight 120 LB (54.55 kg) % [place] Body Weight 92 Body Mass Index (BMI) 18.8 Recent Weight Change Yes GI Symptoms Last BM 01/15 x2 Skin Integrity/Comment: Skin: WNL, Dryness, Flaking, Pale Tristian: 13
[2019-02-01] MEDS: Venelex 60gm Tube TP SCH ×2 (09:30→10:47)
[2019-02-01] MEDS: Eucerin Cream 16 oz Jar TP SCH ×3 (09:31→17:30)
--- NOTE | 2019-02-01 14:16 | Internal Medicine Prog Note ---
Internal Medicine Subjective - Subjective Service Date: 02/01/19 Patient is:: awake, verbal, interactive, agitated, confused Patient Complaints of:: other (Psychotic.) Per staff patient has:: no adverse event, no episodes of fall Internal Medicine Objective - Physical Exam Vitals and I&O: Vital Signs Temp 98.3 F 02/01/19 05:39 Pulse 74 02/01/19 05:39 Resp 20 02/01/19 05:39 BP 108/56 02/01/19 05:39 Pulse Ox 95 02/01/19 05:39 Intake & Output 01/31/19 02/01/19 02/01/19 18:59 06:59 18:59 Intake Total 1200 860 Balance 1200 860 Intake: Oral 1200 860 Other: # Voids 3 2 # Bowel Movements 0 Stool Characteristics Soft Soft Active Medications: Current Medications Acetaminophen (Tylenol) 650 mg PO Q8H PRN PRN Reason: Mild Pain / Temp above 100 Stop: 03/12/19 03:48 [place] Oil/[place] Balsam/Trypsin (Venelex) 0 appl TP DAILY DANYELLE Stop: 03/13/19 08:59 Last Admin: 02/01/19 10:47 Dose: 1 appl Donepezil HCl (Aricept) 5 mg PO HS DANYELLE Stop: 04/01/19 20:59 Last Admin: 01/31/19 21:33 Dose: Not Given Lorazepam (Ativan) 0.5 mg PO Q4H PRN; Protocol PRN Reason: Anxiety Stop: 03/12/19 03:48 Last Admin: 01/20/19 23:32 Dose: 0.5 mg Multi-Ingredient Cream (Eucerin Cream) 1 appl TP BID DANYELLE Stop: 03/13/19 08:59 Last Admin: 02/01/19 10:48 Dose: 1 appl Olanzapine (Zyprexa) 10 mg PO DAILY DANYELLE Stop: 03/30/19 08:59 Last Admin: 02/01/19 10:46 Dose: 10 mg Zolpidem Tartrate (Ambien) 5 mg PO HS PRN PRN Reason: Insomnia Stop: 03/12/19 03:48 Last Admin: 01/22/19 20:52 Dose: 5 mg General: demented, NAD HEENT: NC/AT Neck: Supple, No JVD Lungs: CTAB Cardiovascular: RRR Abdomen: soft, non-tender, non-distended Extremities: clear Neurological: no change Internal Medicine Assmt/Plan - Assessment Assessment: Increased agitation Acute psychosis Hx bipolar disorder - Plan Plan: Continue current treatment plan. Monitor Labs. Continue current medications Continue to monitor VS Monitor Diet/Nutritional support. Psych management per Psychiatry. Pain Management. PT/OT prn Safety precaution, Fall precaution, frequent nursing round. Supportive care. Continue collaborating with consulting specialists, case management and nursing team Nutritional Asmnt/Malnutr-PDOC - Dietary Evaluation Malnutrition Findings (Please click <Entered> for more info): Nutritional Asmnt/Malnutrition Start: 01/15/19 13: 29 Text: Status: Complete Freq: Protocol: Document 01/15/19 13:29 MJ (Rec: 01/15/19 13:31 MJ [email or web address]) Nutritional Asmnt/Malnutrition Patient General Information Nutritional Screening Moderate Risk Diagnosis Psychosis Pertinent Medical Hx/Surgical Hx Bipolar Disorder Subjective Information Pt is an 83-year-old female admitted on 01/11 d/t increased agitation and psychotic behavior. Pt is eating an estimated 78% of meals x3 days (average) Per Meal/Nutrition Activity Record-adequate to meet nutritional needs. Pt has extremely dry and scaly APRIL extremities. Pt often refuses medication and cream. Provided nurseSteph with Mt to support healing. Will monitor skin integrity. HT: 54 WT: 110 LB (50 kg) BMI: 18.88 (Normal) GI: WNL, Soft, Non-tender BM: 10/ x2 I/O: 1160/1 (+1159) Skin: WNL, Dryness, Flaking, Pale Tristian: 13 Diet Order: Regular Estimated Energy Needs: ( Geriatric, CBW) 1845-7950 kcals (25-30 kcals/ kg) 50-60g Pro (1.0-1.2 g/kg) 4907-2139 ml (25-30 ml/kg) Pt is eating 78% of meals Per Meal/Nutrition Activity Record . Dietary is currently providing an estimated 1780 kcals and 140 gm Pro, per Pt PO intake this is providing an estimated 1390 kcals and 109gm Pro to meet 100% kcal and 100+% Pro needs- adequate. Current Diet Order/ Nutrition Support Regular Pertinent Medications No pertinent Medications Pertinent Labs No Labs to Report Nutritional Hx/Data Height 5 ft 4 in Height (Calculated Centimeters) 162.6 Current Weight (lbs) 110 lb Weight (Calculated Kilograms) 49.9 Weight (Calculated Grams) 51789.2 [place] Body Weight 120 LB (54.55 kg) % [place] Body Weight 92 Body Mass Index (BMI) 18.8 Recent Weight Change Yes GI Symptoms Last BM 01/15 x2 Skin Integrity/Comment: Skin: WNL, Dryness, Flaking, Pale Tristian: 13
--- NOTE | 2019-02-02 02:44 | Progress Notes ---
DATE: 02/01/2019 Case was discussed with staff of the patient, reviewed records. The patient continues to have poor insight, unpredictable, impulsive, continues to need redirection, confused, paranoid. Tolerating increase in Zyprexa with no side effects, no sedation, no nausea, no extrapyramidal symptoms and also she is on Aricept. I initiated 5 mg at bedtime. No side effects with the medication, no sedation, no nausea, no extrapyramidal symptoms. We will continue outpatient group therapy, milieu therapy, and adjust medications as needed. JOB# [id number]
[2019-02-02] MEDS: Venelex 60gm Tube TP SCH (09:19)
[2019-02-02] MEDS: Eucerin Cream 16 oz Jar TP SCH ×2 (09:19→18:19)
--- NOTE | 2019-02-02 10:27 | Progress Notes ---
DATE: 02/02/2019 SUBJECTIVE: The patient was seen in the dining area. The patient still appears to be confused, impulsive behavior, poor insight, appears to be paranoid and needs a lot of redirection. Otherwise, the patient appears to be in no acute distress. OBJECTIVE: VITAL SIGNS: Temperature 97.1, heart rate 69, blood pressure 134/60, respirations 18, 98% on room air. HEENT: Head: Atraumatic and normocephalic. Eyes: Bilateral conjunctivae are clear. Bilateral pupils are equally round and reactive. NECK: Supple. No JVD. CARDIOVASCULAR: S1 and S2, without murmur. PULMONARY: Clear to auscultation. GASTROINTESTINAL: Soft and nontender without guarding. Positive bowel sounds. MUSCULOSKELETAL: No clubbing, no cyanosis noted. ASSESSMENT: 1. Agitation. 2. History of bipolar disorder. PLAN: We will continue to keep the patient as inpatient to Psychiatric Unit. We will put the patient on fall precaution. Treatment plans were discussed with the patient's nurse. Treatment plans were discussed with Dr. Lindsey. JOB# [id number]
--- NOTE | 2019-02-02 15:18 | Internal Medicine Prog Note ---
Internal Medicine Subjective - Subjective Service Date: 02/02/19 Patient seen and examined:: with staff Patient is:: awake, verbal, interactive, agitated, confused Patient Complaints of:: other (Psychotic.) Per staff patient has:: no adverse event, no episodes of fall Internal Medicine Objective - Physical Exam Vitals and I&O: Vital Signs Temp 97.1 F 02/02/19 05:36 Pulse 69 02/02/19 05:36 Resp 18 02/02/19 05:36 BP 134/60 02/02/19 05:36 Pulse Ox 98 02/02/19 05:36 Intake & Output 02/01/19 02/02/19 02/02/19 18:59 06:59 18:59 Intake Total 240 Balance 240 Intake: Oral 240 Other: # Voids 2 # Bowel Movements 0 Stool Characteristics Soft Soft Active Medications: Current Medications Acetaminophen (Tylenol) 650 mg PO Q8H PRN PRN Reason: Mild Pain / Temp above 100 Stop: 03/12/19 03:48 [place] Oil/[place] Balsam/Trypsin (Venelex) 0 appl TP DAILY DANYELLE Stop: 03/13/19 08:59 Last Admin: 02/02/19 09:19 Dose: 1 appl Donepezil HCl (Aricept) 5 mg PO HS DANYELLE Stop: 04/01/19 20:59 Last Admin: 02/01/19 20:42 Dose: 5 mg Lorazepam (Ativan) 0.5 mg PO Q4H PRN; Protocol PRN Reason: Anxiety Stop: 03/12/19 03:48 Last Admin: 01/20/19 23:32 Dose: 0.5 mg Multi-Ingredient Cream (Eucerin Cream) 1 appl TP BID DANYELLE Stop: 03/13/19 08:59 Last Admin: 02/02/19 09:19 Dose: 1 appl Olanzapine (Zyprexa) 15 mg PO DAILY DANYELLE Stop: 04/03/19 08:59 Zolpidem Tartrate (Ambien) 5 mg PO HS PRN PRN Reason: Insomnia Stop: 03/12/19 03:48 Last Admin: 02/01/19 20:42 Dose: 5 mg Physical Exam: Patient is impulsive, poor insight, continues to need redirection. General: demented, NAD HEENT: NC/AT Neck: Supple, No JVD Lungs: CTAB Cardiovascular: RRR Abdomen: soft, non-tender, non-distended Extremities: clear Neurological: no change Internal Medicine Assmt/Plan - Assessment Assessment: Increased agitation. Acute Psychosis. History of Bipolar disorder. - Plan Plan: Continuation of care. Psych management per Psych. Wound care prn. Continue present meds as directed. Monitor diet/nutritional support. Continue present care management. Nutritional Asmnt/Malnutr-PDOC - Dietary Evaluation Malnutrition Findings (Please click <Entered> for more info): Nutritional Asmnt/Malnutrition Start: 01/15/19 13: 29 Text: Status: Complete Freq: Protocol: Document 01/15/19 13:29 MJ (Rec: 01/15/19 13:31 MJ [email or web address]) Nutritional Asmnt/Malnutrition Patient General Information Nutritional Screening Moderate Risk Diagnosis Psychosis Pertinent Medical Hx/Surgical Hx Bipolar Disorder Subjective Information Pt is an 83-year-old female admitted on 01/11 d/t increased agitation and psychotic behavior. Pt is eating an estimated 78% of meals x3 days (average) Per Meal/Nutrition Activity Record-adequate to meet nutritional needs. Pt has extremely dry and scaly APRIL extremities. Pt often refuses medication and cream. Provided nurseSteph with Mt to support healing. Will monitor skin integrity. HT: 54 WT: 110 LB (50 kg) BMI: 18.88 (Normal) GI: WNL, Soft, Non-tender BM: 01/15 x2 I/O: 1160/1 (+1159) Skin: WNL, Dryness, Flaking, Pale Tristian: 13 Diet Order: Regular Estimated Energy Needs: ( Geriatric, CBW) 7598-1916 kcals (25-30 kcals/ kg) 50-60g Pro (1.0-1.2 g/kg) 0151-9071 ml (25-30 ml/kg) Pt is eating 78% of meals Per Meal/Nutrition Activity Record . Dietary is currently providing an estimated 1780 kcals and 140 gm Pro, per Pt PO intake this is providing an estimated 1390 kcals and 109gm Pro to meet 100% kcal and 100+% Pro needs- adequate. Current Diet Order/ Nutrition Support Regular Pertinent Medications No pertinent Medications Pertinent Labs No Labs to Report Nutritional Hx/Data Height 1.63 m Height (Calculated Centimeters) 162.6 Current Weight (lbs) 49.895 kg Weight (Calculated Kilograms) 49.9 Weight (Calculated Grams) 17425.2 [place] Body Weight 120 LB (54.55 kg) % [place] Body Weight 92 Body Mass Index (BMI) 18.8 Recent Weight Change Yes GI Symptoms Last BM 01/15 x2 Skin Integrity/Comment: Skin: WNL, Dryness, Flaking, Pale Tristian: 13
--- NOTE | 2019-02-02 19:02 | Progress Notes ---
DATE: 02/02/2019 SUBJECTIVE: Chart reviewed and the patient interviewed. Also discussed the patient's condition with the staff and reviewed records and labs. The patient is still anxious and is still in a depressed and confused state. The patient also still has repetitive behavior and asking questions over and over and seems to be preoccupied. The patient also is suspicious and is guarded. She is also easily irritable and easily agitated. Otherwise, the patient is compliant with taking her medications with no side effects. ASSESSMENT: The patient is still agitated and psychotic. TREATMENT PLAN: Continue monitoring her behavior and her condition closely. Also, continue Zyprexa in a dose of 15 mg at bedtime and continue Aricept 5 mg every day, and Zyprexa will be given in a dose of 15 mg at bedtime, and we will continue to follow up closely. JOB# [id number]
[2019-02-03] MEDS: Venelex 60gm Tube TP SCH (10:00)
[2019-02-03] MEDS: Eucerin Cream 16 oz Jar TP SCH ×3 (10:00→17:00)
--- NOTE | 2019-02-03 13:11 | Internal Medicine Prog Note ---
Internal Medicine Subjective - Subjective Service Date: 02/03/19 Patient seen and examined:: with staff Patient is:: awake, verbal, interactive, agitated, confused Patient Complaints of:: other (Psychotic.) Per staff patient has:: no adverse event, no episodes of fall Internal Medicine Objective - Physical Exam Vitals and I&O: Vital Signs Temp 98.2 F 02/03/19 06:41 Pulse 60 02/03/19 06:41 Resp 18 02/03/19 06:41 BP 136/60 02/03/19 06:41 Pulse Ox 100 02/03/19 06:41 Intake & Output 02/02/19 02/03/19 02/03/19 18:59 06:59 18:59 Intake Total 240 Balance 240 Intake: Oral 240 Other: # Voids 1 # Bowel Movements 1 Active Medications: Current Medications Acetaminophen (Tylenol) 650 mg PO Q8H PRN PRN Reason: Mild Pain / Temp above 100 Stop: 03/12/19 03:48 [place] Oil/[place] Balsam/Trypsin (Venelex) 0 appl TP DAILY DANYELLE Stop: 03/13/19 08:59 Last Admin: 02/03/19 10:00 Dose: 1 appl Donepezil HCl (Aricept) 5 mg PO HS DANYELLE Stop: 04/01/19 20:59 Last Admin: 02/02/19 20:28 Dose: 5 mg Lorazepam (Ativan) 0.5 mg PO Q4H PRN; Protocol PRN Reason: Anxiety Stop: 03/12/19 03:48 Last Admin: 01/20/19 23:32 Dose: 0.5 mg Multi-Ingredient Cream (Eucerin Cream) 1 appl TP BID DANYELLE Stop: 03/13/19 08:59 Last Admin: 02/03/19 10:04 Dose: 1 appl Olanzapine (Zyprexa) 15 mg PO HS DANYELLE Stop: 04/04/19 20:59 Zolpidem Tartrate (Ambien) 5 mg PO HS PRN PRN Reason: Insomnia Stop: 03/12/19 03:48 Last Admin: 02/02/19 20:28 Dose: 5 mg Physical Exam: Patient continues to very agitated and psychotic. General: demented, NAD HEENT: NC/AT Neck: Supple, No JVD Lungs: CTAB Cardiovascular: RRR Abdomen: soft, non-tender, non-distended Extremities: clear Neurological: no change Internal Medicine Assmt/Plan - Assessment Assessment: Increased agitation. Acute Psychosis. History of Bipolar disorder. - Plan Plan: Continuation of care. Psych management per Psych. Wound care prn. Continue present meds as directed. Monitor diet/nutritional support. Continue present care management. Nutritional Asmnt/Malnutr-PDOC - Dietary Evaluation Malnutrition Findings (Please click <Entered> for more info): Nutritional Asmnt/Malnutrition Start: 01/15/19 13: 29 Text: Status: Complete Freq: Protocol: Document 01/15/19 13:29 [email or web address] (Rec: 01/15/19 13:31 [email or web address]) Nutritional Asmnt/Malnutrition Patient General Information Nutritional Screening Moderate Risk Diagnosis Psychosis Pertinent Medical Hx/Surgical Hx Bipolar Disorder Subjective Information Pt is an 83-year-old female admitted on 01/11 d/t increased agitation and psychotic behavior. Pt is eating an estimated 78% of meals x3 days (average) Per Meal/Nutrition Activity Record-adequate to meet nutritional needs. Pt has extremely dry and scaly APRIL extremities. Pt often refuses medication and cream. Provided nurseSteph with Mt to support healing. Will monitor skin integrity. HT: 54 WT: 110 LB (50 kg) BMI: 18.88 (Normal) GI: WNL, Soft, Non-tender BM: 01/15 x2 I/O: 1160/1 (+1159) Skin: WNL, Dryness, Flaking, Pale Tristian: 13 Diet Order: Regular Estimated Energy Needs: ( Geriatric, CBW) 4643-2949 kcals (25-30 kcals/ kg) 50-60g Pro (1.0-1.2 g/kg) 7132-2460 ml (25-30 ml/kg) Pt is eating 78% of meals Per Meal/Nutrition Activity Record . Dietary is currently providing an estimated 1780 kcals and 140 gm Pro, per Pt PO intake this is providing an estimated 1390 kcals and 109gm Pro to meet 100% kcal and 100+% Pro needs- adequate. Current Diet Order/ Nutrition Support Regular Pertinent Medications No pertinent Medications Pertinent Labs No Labs to Report Nutritional Hx/Data Height 1.63 m Height (Calculated Centimeters) 162.6 Current Weight (lbs) 49.895 kg Weight (Calculated Kilograms) 49.9 Weight (Calculated Grams) 67019.2 [place] Body Weight 120 LB (54.55 kg) % [place] Body Weight 92 Body Mass Index (BMI) 18.8 Recent Weight Change Yes GI Symptoms Last BM 01/15 x2 Skin Integrity/Comment: Skin: WNL, Dryness, Flaking, Pale Tristian: 13
--- NOTE | 2019-02-03 20:18 | Progress Notes ---
DATE: 02/03/2019 SUBJECTIVE: Chart reviewed and the patient interviewed. Also discussed the patient's condition with the staff and reviewed records and labs. The patient is still confused and she still labile, active, irritable and agitated. The patient also refused to take Zyprexa in the morning, but she did take Aricept at night. The patient also still has unpredictable behavior and still needs lots of redirections because of her confusion. Otherwise, no side effects of medications. Also, during interview, the patient is still suspicious and is still agitated. ASSESSMENT: The patient is still confused and agitated. TREATMENT PLAN: Continue to monitor her behavior and her condition closely. Also, change Zyprexa to be given in a dose of 15 mg at bedtime. Hopefully, that can help with her compliance. Also, continue working on her irritability and continue to follow up. JOB# [id number]
[2019-02-04] MEDS: Eucerin Cream 16 oz Jar TP SCH ×2 (09:22→16:34)
[2019-02-04] MEDS: Venelex 60gm Tube TP SCH (09:22)
--- NOTE | 2019-02-04 10:04 | Internal Medicine Prog Note ---
Internal Medicine Subjective - Subjective Service Date: 02/04/19 Patient seen and examined:: with staff Patient is:: awake, verbal, interactive, agitated, confused Patient Complaints of:: other (Psychotic.) Per staff patient has:: no adverse event, no episodes of fall Internal Medicine Objective - Physical Exam Vitals and I&O: Vital Signs Temp 98.2 F 02/04/19 06:31 Pulse 79 02/04/19 06:31 Resp 18 02/04/19 06:31 BP 118/66 02/04/19 06:31 Pulse Ox 98 02/04/19 06:31 Intake & Output 02/03/19 02/04/19 02/04/19 18:59 06:59 18:59 Intake Total 120 Balance 120 Intake: Oral 120 Other: # Voids 3 Active Medications: Current Medications Acetaminophen (Tylenol) 650 mg PO Q8H PRN PRN Reason: Mild Pain / Temp above 100 Stop: 03/12/19 03:48 [place] Oil/[place] Balsam/Trypsin (Venelex) 0 appl TP DAILY DANYELLE Stop: 03/13/19 08:59 Last Admin: 02/04/19 09:22 Dose: 1 appl Donepezil HCl (Aricept) 5 mg PO HS DANYELLE Stop: 04/01/19 20:59 Last Admin: 02/03/19 21:47 Dose: 5 mg Lorazepam (Ativan) 0.5 mg PO Q4H PRN; Protocol PRN Reason: Anxiety Stop: 03/12/19 03:48 Last Admin: 01/20/19 23:32 Dose: 0.5 mg Multi-Ingredient Cream (Eucerin Cream) 1 appl TP BID DANYELLE Stop: 03/13/19 08:59 Last Admin: 02/04/19 09:22 Dose: 1 appl Olanzapine (Zyprexa) 15 mg PO HS DANYELLE Stop: 04/04/19 20:59 Last Admin: 02/03/19 21:48 Dose: 15 mg Zolpidem Tartrate (Ambien) 5 mg PO HS PRN PRN Reason: Insomnia Stop: 03/12/19 03:48 Last Admin: 02/03/19 21:48 Dose: 5 mg Physical Exam: Patient is easily agitated, having mood swings, needing to be redirected and monitoring. General: demented, NAD HEENT: NC/AT Neck: Supple, No JVD Lungs: CTAB Cardiovascular: RRR Abdomen: soft, non-tender, non-distended Extremities: clear Neurological: no change, disorganized Internal Medicine Assmt/Plan - Assessment Assessment: Increased agitation. Acute Psychosis. History of Bipolar disorder. - Plan Plan: Continuation of care. Psych management per Psych. Wound care prn. Continue present meds as directed. Monitor diet/nutritional support. Continue present care management. Nutritional Asmnt/Malnutr-PDOC - Dietary Evaluation Malnutrition Findings (Please click <Entered> for more info): Nutritional Asmnt/Malnutrition Start: 01/15/19 13: 29 Text: Status: Complete Freq: Protocol: Document 01/15/19 13:29 MJ (Rec: 01/15/19 13:31 MJ [email or web address]) Nutritional Asmnt/Malnutrition Patient General Information Nutritional Screening Moderate Risk Diagnosis Psychosis Pertinent Medical Hx/Surgical Hx Bipolar Disorder Subjective Information Pt is an 83-year-old female admitted on 01/11 d/t increased agitation and psychotic behavior. Pt is eating an estimated 78% of meals x3 days (average) Per Meal/Nutrition Activity Record-adequate to meet nutritional needs. Pt has extremely dry and scaly APRIL extremities. Pt often refuses medication and cream. Provided nurse, Steph with Mt to support healing. Will monitor skin integrity. HT: 54 WT: 110 LB (50 kg) BMI: 18.88 (Normal) GI: WNL, Soft, Non-tender BM: 01/15 x2 I/O: 1160/1 (+1159) Skin: WNL, Dryness, Flaking, Pale Tristian: 13 Diet Order: Regular Estimated Energy Needs: ( Geriatric, CBW) 2384-2009 kcals (25-30 kcals/ kg) 50-60g Pro (1.0-1.2 g/kg) 1682-4837 ml (25-30 ml/kg) Pt is eating 78% of meals Per Meal/Nutrition Activity Record . Dietary is currently providing an estimated 1780 kcals and 140 gm Pro, per Pt PO intake this is providing an estimated 1390 kcals and 109gm Pro to meet 100% kcal and 100+% Pro needs- adequate. Current Diet Order/ Nutrition Support Regular Pertinent Medications No pertinent Medications Pertinent Labs No Labs to Report Nutritional Hx/Data Height 1.63 m Height (Calculated Centimeters) 162.6 Current Weight (lbs) 49.895 kg Weight (Calculated Kilograms) 49.9 Weight (Calculated Grams) 20768.2 [place] Body Weight 120 LB (54.55 kg) % [place] Body Weight 92 Body Mass Index (BMI) 18.8 Recent Weight Change Yes GI Symptoms Last BM 01/15 x2 Skin Integrity/Comment: Skin: WNL, Dryness, Flaking, Pale Tristian: 13
--- NOTE | 2019-02-04 23:51 | Progress Notes ---
DATE: 02/04/2019 SUBJECTIVE: The patient in the hospital, confused, labile, irritable, ongoing agitation, still remains pretty unpredictable. The patient is still believing that she is going to go home, believing that her food was being poisoned. No longer believes her food is being poisoned. Staff noting, however, she is suspicious of others, confused appearing, removing her diapers, requiring a higher level of care. Per social psychologist, we are trying to find her a place to go. cannot take care of her due to his own disabilities. PLAN: We will continue to monitor. Medications were reviewed. Vitals were reviewed. JOB# [id number]
[2019-02-05] MEDS: Eucerin Cream 16 oz Jar TP SCH ×2 (08:52→16:11)
[2019-02-05] MEDS: Venelex 60gm Tube TP SCH (08:52)
--- NOTE | 2019-02-05 14:38 | Internal Medicine Prog Note ---
Internal Medicine Subjective - Subjective Service Date: 02/05/19 Patient is:: awake, verbal, interactive, agitated, confused Patient Complaints of:: other (Psychotic.) Per staff patient has:: no adverse event, no episodes of fall Internal Medicine Objective - Physical Exam Vitals and I&O: Vital Signs Temp 98.2 F 02/05/19 06:20 Pulse 69 02/05/19 06:20 Resp 19 02/05/19 06:20 BP 112/49 02/05/19 06:20 Pulse Ox 94 02/05/19 06:20 Intake & Output 02/04/19 02/05/19 02/05/19 18:59 06:59 18:59 Intake Total 180 Balance 180 Intake: Oral 180 Other: # Voids 1 # Bowel Movements 1 Stool Characteristics Soft Soft Soft Brown Brown Brown Active Medications: Current Medications Acetaminophen (Tylenol) 650 mg PO Q8H PRN PRN Reason: Mild Pain / Temp above 100 Stop: 03/12/19 03:48 [place] Oil/[place] Balsam/Trypsin (Venelex) 0 appl TP DAILY DANYELLE Stop: 03/13/19 08:59 Last Admin: 02/05/19 08:52 Dose: 1 appl Donepezil HCl (Aricept) 5 mg PO HS DANYELLE Stop: 04/01/19 20:59 Last Admin: 02/04/19 20:24 Dose: 5 mg Lorazepam (Ativan) 0.5 mg PO Q4H PRN; Protocol PRN Reason: Anxiety Stop: 03/12/19 03:48 Last Admin: 02/04/19 21:31 Dose: 0.5 mg Multi-Ingredient Cream (Eucerin Cream) 1 appl TP BID DANYELLE Stop: 03/13/19 08:59 Last Admin: 02/05/19 08:52 Dose: 1 appl Olanzapine (Zyprexa) 15 mg PO HS DANYELLE Stop: 04/04/19 20:59 Last Admin: 02/04/19 20:24 Dose: 15 mg Zolpidem Tartrate (Ambien) 5 mg PO HS PRN PRN Reason: Insomnia Stop: 03/12/19 03:48 Last Admin: 02/04/19 20:24 Dose: 5 mg General: demented, NAD HEENT: NC/AT Neck: Supple, No JVD Lungs: CTAB Cardiovascular: RRR Abdomen: soft, non-tender, non-distended Extremities: clear Neurological: no change, disorganized Internal Medicine Assmt/Plan - Assessment Assessment: Increased agitation Acute psychosis Hx bipolar disorder - Plan Plan: Continue current treatment plan. Monitor Labs. Continue current medications Continue to monitor VS Monitor Diet/Nutritional support. Psych management per Psychiatry. Pain Management. PT/OT prn Safety precaution, Fall precaution, frequent nursing round. Supportive care. Continue collaborating with consulting specialists, case management and nursing team Nutritional Asmnt/Malnutr-PDOC - Dietary Evaluation Malnutrition Findings (Please click <Entered> for more info): Nutritional Asmnt/Malnutrition Start: 01/15/19 13: 29 Text: Status: Complete Freq: Protocol: Document 01/15/19 13:29 MJ (Rec: 01/15/19 13:31 MJ [email or web address]) Nutritional Asmnt/Malnutrition Patient General Information Nutritional Screening Moderate Risk Diagnosis Psychosis Pertinent Medical Hx/Surgical Hx Bipolar Disorder Subjective Information Pt is an 83-year-old female admitted on 01/11 d/t increased agitation and psychotic behavior. Pt is eating an estimated 78% of meals x3 days (average) Per Meal/Nutrition Activity Record-adequate to meet nutritional needs. Pt has extremely dry and scaly APRIL extremities. Pt often refuses medication and cream. Provided nurseSteph with Mt to support healing. Will monitor skin integrity. HT: 54 WT: 110 LB (50 kg) BMI: 18.88 (Normal) GI: WNL, Soft, Non-tender BM: / x2 I/O: 1160/1 (+1159) Skin: WNL, Dryness, Flaking, Pale Tristian: 13 Diet Order: Regular Estimated Energy Needs: ( Geriatric, CBW) 3681-2914 kcals (25-30 kcals/ kg) 50-60g Pro (1.0-1.2 g/kg) 4965-8764 ml (25-30 ml/kg) Pt is eating 78% of meals Per Meal/Nutrition Activity Record . Dietary is currently providing an estimated 1780 kcals and 140 gm Pro, per Pt PO intake this is providing an estimated 1390 kcals and 109gm Pro to meet 100% kcal and 100+% Pro needs- adequate. Current Diet Order/ Nutrition Support Regular Pertinent Medications No pertinent Medications Pertinent Labs No Labs to Report Nutritional Hx/Data Height 5 ft 4 in Height (Calculated Centimeters) 162.6 Current Weight (lbs) 110 lb Weight (Calculated Kilograms) 49.9 Weight (Calculated Grams) 48173.2 [place] Body Weight 120 LB (54.55 kg) % [place] Body Weight 92 Body Mass Index (BMI) 18.8 Recent Weight Change Yes GI Symptoms Last BM 01/15 x2 Skin Integrity/Comment: Skin: WNL, Dryness, Flaking, Pale Tristian: 13
--- NOTE | 2019-02-05 15:58 | Progress Notes ---
DATE: 02/05/2019 PSYCHIATRIC FOLLOWUP NOTE An 83-year-old female seen today 02/05/2019. The patient seems to be improving, calmer, likely at her baseline just mostly confused, disoriented, needing a higher level of care. We are attempting to confirm placement. Once placement was confirmed. She can step down. She is AO x name only. She does not know where she is or what is going on. She is rambling, talking nonsense. Believing she is going to go back home to [place]. Medications were noted. Vitals were reviewed. We will continue to monitor. JOB# [id number]
[2019-02-06] MEDS: Eucerin Cream 16 oz Jar TP SCH ×3 (09:34→18:45)
[2019-02-06] MEDS: Venelex 60gm Tube TP SCH (09:34)
--- NOTE | 2019-02-06 11:20 | Internal Medicine Prog Note ---
Internal Medicine Subjective - Subjective Service Date: 02/06/19 Patient seen and examined:: with staff Patient is:: awake, verbal, interactive, agitated, confused Patient Complaints of:: other (Psychotic.) Per staff patient has:: no adverse event, no episodes of fall Internal Medicine Objective - Physical Exam Vitals and I&O: Vital Signs Temp 97.8 F 02/06/19 06:23 Pulse 75 02/06/19 06:23 Resp 20 02/06/19 06:23 BP 113/58 02/06/19 06:23 Pulse Ox 98 02/06/19 06:23 Intake & Output 02/05/19 02/06/19 02/06/19 18:59 06:59 18:59 Intake Total 240 Output Total 1 Balance 239 Intake: Oral 240 Output: Urine/Stool Mix 1 Other: # Voids 3 # Bowel Movements 0 Stool Characteristics Soft Brown Active Medications: Current Medications Acetaminophen (Tylenol) 650 mg PO Q8H PRN PRN Reason: Mild Pain / Temp above 100 Stop: 03/12/19 03:48 [place] Oil/[place] Balsam/Trypsin (Venelex) 0 appl TP DAILY DANYELLE Stop: 03/13/19 08:59 Last Admin: 02/06/19 09:34 Dose: 1 appl Donepezil HCl (Aricept) 5 mg PO HS DANYELLE Stop: 04/01/19 20:59 Last Admin: 02/05/19 21:12 Dose: 5 mg Lorazepam (Ativan) 0.5 mg PO Q4H PRN; Protocol PRN Reason: Anxiety Stop: 03/12/19 03:48 Last Admin: 02/04/19 21:31 Dose: 0.5 mg Multi-Ingredient Cream (Eucerin Cream) 1 appl TP BID DANYELLE Stop: 03/13/19 08:59 Last Admin: 02/06/19 09:34 Dose: 1 appl Olanzapine (Zyprexa) 15 mg PO HS DANYELLE Stop: 04/04/19 20:59 Last Admin: 02/05/19 21:12 Dose: 15 mg Zolpidem Tartrate (Ambien) 5 mg PO HS PRN PRN Reason: Insomnia Stop: 03/12/19 03:48 Last Admin: 02/04/19 20:24 Dose: 5 mg Physical Exam: Patient is dis-oriented, less agitated. General: demented, NAD HEENT: NC/AT Neck: Supple, No JVD Lungs: CTAB Cardiovascular: RRR Abdomen: soft, non-tender, non-distended Extremities: clear Neurological: no change, disorganized Internal Medicine Assmt/Plan - Assessment Assessment: Agitated. Acute Psychosis. History of Bipolar disorder. - Plan Plan: Continuation of care. Psych management per Psych. Wound care prn. Continue present meds as directed. Monitor diet/nutritional support. Continue present care management. Nutritional Asmnt/Malnutr-PDOC - Dietary Evaluation Malnutrition Findings (Please click <Entered> for more info): Nutritional Asmnt/Malnutrition Start: 01/15/19 13: 29 Text: Status: Complete Freq: Protocol: Document 01/15/19 13:29 MJ (Rec: 01/15/19 13:31 [email or web address] [email or web address]) Nutritional Asmnt/Malnutrition Patient General Information Nutritional Screening Moderate Risk Diagnosis Psychosis Pertinent Medical Hx/Surgical Hx Bipolar Disorder Subjective Information Pt is an 83-year-old female admitted on 01/11 d/t increased agitation and psychotic behavior. Pt is eating an estimated 78% of meals x3 days (average) Per Meal/Nutrition Activity Record-adequate to meet nutritional needs. Pt has extremely dry and scaly APRIL extremities. Pt often refuses medication and cream. Provided nurseSteph with Mt to support healing. Will monitor skin integrity. HT: 54 WT: 110 LB (50 kg) BMI: 18.88 (Normal) GI: WNL, Soft, Non-tender BM: 10/ x2 I/O: 1160/1 (+1159) Skin: WNL, Dryness, Flaking, Pale [place]: 13 Diet Order: Regular Estimated Energy Needs: ( Geriatric, CBW) 5943-1281 kcals (25-30 kcals/ kg) 50-60g Pro (1.0-1.2 g/kg) 2127-9637 ml (25-30 ml/kg) Pt is eating 78% of meals Per Meal/Nutrition Activity Record . Dietary is currently providing an estimated 1780 kcals and 140 gm Pro, per Pt PO intake this is providing an estimated 1390 kcals and 109gm Pro to meet 100% kcal and 100+% Pro needs- adequate. Current Diet Order/ Nutrition Support Regular Pertinent Medications No pertinent Medications Pertinent Labs No Labs to Report Nutritional Hx/Data Height 1.63 m Height (Calculated Centimeters) 162.6 Current Weight (lbs) 49.895 kg Weight (Calculated Kilograms) 49.9 Weight (Calculated Grams) 06283.2 [place] Body Weight 120 LB (54.55 kg) % [place] Body Weight 92 Body Mass Index (BMI) 18.8 Recent Weight Change Yes GI Symptoms Last BM 01/15 x2 Skin Integrity/Comment: Skin: WNL, Dryness, Flaking, Pale Trist[place]: 13
--- NOTE | 2019-02-07 03:54 | Progress Notes ---
DATE: 02/06/2019 SUBJECTIVE: The patient is very confused, but calm, still talking nonsense, believing she is going to go back home to [place], rambling, mumbling, likely approaching her baseline. We are trying to find her a place to go. Per bilingual social worker note, the patient has been accepted to a assisted facility. Fair sleep, fair appetite. The patient is calm right now. No distress. PLAN: We will monitor for further 24 hours, plan to discharge tomorrow. JOB# [id number]
--- NOTE | 2019-02-07 10:21 | Internal Medicine Prog Note ---
Internal Medicine Subjective - Subjective Service Date: 02/07/19 Patient seen and examined:: with staff Patient is:: awake, verbal, interactive, agitated, confused Patient Complaints of:: other (Psychotic.) Per staff patient has:: no adverse event, no episodes of fall Internal Medicine Objective - Physical Exam Vitals and I&O: Vital Signs Temp 97.9 F 02/07/19 09:44 Pulse 76 02/07/19 09:44 Resp 18 02/07/19 09:44 BP 143/74 02/07/19 09:44 Pulse Ox 97 02/07/19 09:44 Intake & Output 02/06/19 02/07/19 02/07/19 18:59 06:59 18:59 Intake Total 120 Balance 120 Intake: Oral 120 Other: # Voids 3 3 # Bowel Movements 1 Stool Characteristics Soft Brown Active Medications: Current Medications Acetaminophen (Tylenol) 650 mg PO Q8H PRN PRN Reason: Mild Pain / Temp above 100 Stop: 03/12/19 03:48 [place] Oil/[place] Balsam/Trypsin (Venelex) 0 appl TP DAILY DANYELLE Stop: 03/13/19 08:59 Last Admin: 02/06/19 09:34 Dose: 1 appl Donepezil HCl (Aricept) 5 mg PO HS DANYELLE Stop: 04/01/19 20:59 Last Admin: 02/06/19 21:47 Dose: 5 mg Lorazepam (Ativan) 0.5 mg PO Q4H PRN; Protocol PRN Reason: Anxiety Stop: 03/12/19 03:48 Last Admin: 02/04/19 21:31 Dose: 0.5 mg Multi-Ingredient Cream (Eucerin Cream) 1 appl TP BID DANYELLE Stop: 03/13/19 08:59 Last Admin: 02/06/19 18:45 Dose: 1 appl Olanzapine (Zyprexa) 15 mg PO HS DANYELLE Stop: 04/04/19 20:59 Last Admin: 02/06/19 21:47 Dose: 15 mg Zolpidem Tartrate (Ambien) 5 mg PO HS PRN PRN Reason: Insomnia Stop: 03/12/19 03:48 Last Admin: 02/06/19 21:48 Dose: 5 mg Physical Exam: Patient remains very confused and hallucinating, very paranoid. General: demented, NAD HEENT: NC/AT Neck: Supple, No JVD Lungs: CTAB Cardiovascular: RRR Abdomen: soft, non-tender, non-distended Extremities: clear Neurological: no change, disorganized Internal Medicine Assmt/Plan - Assessment Assessment: Agitated. Acute Psychosis. History of Bipolar disorder. - Plan Plan: Continuation of care. Psych management per Psych. Wound care prn. Continue present meds as directed. Monitor diet/nutritional support. Continue present care management. Nutritional Asmnt/Malnutr-PDOC - Dietary Evaluation Malnutrition Findings (Please click <Entered> for more info): Nutritional Asmnt/Malnutrition Start: 01/15/19 13: 29 Text: Status: Complete Freq: Protocol: Document 01/15/19 13:29 MJ (Rec: 01/15/19 13:31 [email or web address] [email or web address]) Nutritional Asmnt/Malnutrition Patient General Information Nutritional Screening Moderate Risk Diagnosis Psychosis Pertinent Medical Hx/Surgical Hx Bipolar Disorder Subjective Information Pt is an 83-year-old female admitted on 01/11 d/t increased agitation and psychotic behavior. Pt is eating an estimated 78% of meals x3 days (average) Per Meal/Nutrition Activity Record-adequate to meet nutritional needs. Pt has extremely dry and scaly APRIL extremities. Pt often refuses medication and cream. Provided nurse, Steph with Mt to support healing. Will monitor skin integrity. HT: 54 WT: 110 LB (50 kg) BMI: 18.88 (Normal) GI: WNL, Soft, Non-tender BM: 01/15 x2 I/O: 1160/1 (+1159) Skin: WNL, Dryness, Flaking, Pale [place]: 13 Diet Order: Regular Estimated Energy Needs: ( Geriatric, CBW) 4832-4340 kcals (25-30 kcals/ kg) 50-60g Pro (1.0-1.2 g/kg) 9044-9813 ml (25-30 ml/kg) Pt is eating 78% of meals Per Meal/Nutrition Activity Record . Dietary is currently providing an estimated 1780 kcals and 140 gm Pro, per Pt PO intake this is providing an estimated 1390 kcals and 109gm Pro to meet 100% kcal and 100+% Pro needs- adequate. Current Diet Order/ Nutrition Support Regular Pertinent Medications No pertinent Medications Pertinent Labs No Labs to Report Nutritional Hx/Data Height 1.63 m Height (Calculated Centimeters) 162.6 Current Weight (lbs) 49.895 kg Weight (Calculated Kilograms) 49.9 Weight (Calculated Grams) 69517.2 [place] Body Weight 120 LB (54.55 kg) % [place] Body Weight 92 Body Mass Index (BMI) 18.8 Recent Weight Change Yes GI Symptoms Last BM 01/15 x2 Skin Integrity/Comment: Skin: WNL, Dryness, Flaking, Pale Tristian: 13
[2019-02-07] MEDS: Eucerin Cream 16 oz Jar TP SCH (11:30)
[2019-02-07] MEDS: Venelex 60gm Tube TP SCH (11:30)
--- NOTE | 2019-02-08 01:05 | Discharge Summary ---
DATE OF DISCHARGE: 02/07/2019 JUSTIFICATION FOR HOSPITALIZATION: Inability to take care ____ confusion. HISTORY OF PRESENT ILLNESS: An 83-year-old female, known to this clinician, with worsening confusion, poor ADLs. could not take care of her at home for acting out behaviors. The patient is highly disoriented, disengaged, 83-year-old female with worsening dementia, worsening confusional state. PAST PSYCHIATRIC HISTORY: Admission in the past. SOCIAL HISTORY: Apparently living with . has Parkinson's, cannot take care of her as she declines further. MEDICATIONS: Reviewed. PROVISIONAL DIAGNOSES: Dementia, dementia with behaviors; mood, unspecified; anxiety, unspecified; psychosis, unspecified. MEDICAL: Please see full H and P. HOSPITAL COURSE: After initial assessment, the patient was started on medications. Medications were adjusted, titrated. Over the course of treatment, the patient started to improve and generally calmer, no longer agitated but very confused. At the latter end of treatment, her sleep normalized. She was a lot better, likely at her baseline. Placement was confirmed. CONDITION UPON DISCHARGE: Improved. Confused. No SI, no HI, no combative symptoms, accepting a placement. Staff noting improvement. DISCHARGE DIAGNOSES: Dementia, dementia with behaviors; mood, unspecified; anxiety, unspecified; psychosis, unspecified. PROGNOSIS: The patient follows up with mental health services and remains compliant with treatment. Prognosis will improve, otherwise guarded. JOB# [id number]
== END 2019-02-07 16:05 | DRG 884 ==
LOC: GERO 02:10
PROVIDERS: ADMIT Psychiatry & Neurology Psychiatry; ATTEND Psychiatry & Neurology Psychiatry
DX: F03.91 Unspecified dementia, unspecified severity, with behavioral disturbance (principal); F23 Brief psychotic disorder; F39 Unspecified mood [affective] disorder; R45.1 Restlessness and agitation; F22 Delusional disorders; F31.9 Bipolar disorder, unspecified; F41.9 Anxiety disorder, unspecified; Z88.6 Allergy status to analgesic agent
CPT/HCPCS: J7051; Z7610